=== PATIENT | female | born 1945 | race Hispanic/Latino ===

== ENCOUNTER 2017-06-20 04:09 | Inpatient (IN) | payer MEDICARE, MEDICAID ==
[2017-06-20 04:09] VITALS: BMI 27.7
--- NOTE | 2017-06-20 05:52 | ED PDOC ---
HPI: General Adult Time Seen by Provider: 06/20/17 04:21 Chief Complaint (Nursing): Abnormal Skin Integrity Chief Complaint (Provider): G Tube Infected History Per: Patient History/Exam Limitations: no limitations, physical impairment (non-verbal) Onset/Duration Of Symptoms: Unknown Current Symptoms Are (Timing): Still Present Additional Complaint(s): 71 yo female with a G Tube in placed and a history of CVA, seizure disorder, and diabetes, is sent from her shelter for evaluation of her infected G Tube, with unknown onset. Patient is non-verbal and unable to provide any patient history. PCP: Vikas Blair Past Medical History Reviewed: Historical Data, Nursing Documentation, Vital Signs Vital Signs: Last Vital Signs Temp 98.4 F 06/20/17 17:17 Pulse 81 06/20/17 19:06 Resp 16 06/20/17 17:36 BP 142/76 06/20/17 17:17 Pulse Ox 100 06/20/17 17:17 - Medical History PMH: Anemia, Anxiety, COPD, CVA, Diabetes, HTN, Osteoporosis, Pneumonia, Chronic Kidney Disease, Seizures - Family History Family History: States: Unknown Family Hx - Living Arrangements Living Arrangements: Snf/Assist Lvng - Social History Current smoker - smoking cessation education provided: No Ex-Smoker (has not smoked in the last 12 months): No Alcohol: None Drugs: Denies - Immunization History Hx Tetanus Toxoid Vaccination: No (no record) Hx Influenza Vaccination: No (no record) Hx Pneumococcal Vaccination: No (no record) - Home Medications Home Medications: Ambulatory Orders Medication Instructions Recorded Famotidine [Pepcid] 40 mg PEG DAILY 12/06/16 Magnesium Hydroxide [Milk Of 30 ml PEG DAILY PRN 12/06/16 Magnesia] Albuterol/Ipratropium [Duoneb 3 3 ml INH RQID neb 02/07/17 mg/0.5 mg (3 ml) UD] Aspirin [Aspirin Chewable] 81 mg PEG DAILY chew 02/07/17 Insulin Detemir [Levemir] 10 unit SC Q12H unit 02/07/17 Insulin Human Regular [Novolin R] 0 unit SC Q6 unit 02/07/17 Topiramate [Topamax] 100 mg PEG Q12 03/22/17 Acetaminophen [Tylenol 325mg tab] 650 mg PEG Q4 PRN 06/20/17 Acetaminophen [Tylenol 325mg tab] 650 mg PEG Q4 PRN 06/20/17 Mag Hydrox/Aluminum Hyd/Simeth 30 ml PEG Q4 PRN 06/20/17 [Maalox Advanced Suspension] Oxcarbazepine [Trileptal] 150 mg PEG DAILY 06/20/17 Oxcarbazepine [Trileptal] 450 mg PEG HS 06/20/17 - Allergies Allergies/Adverse Reactions: Allergies Allergy/AdvReac Type Severity Reaction Status Date / Time aztreonam [From Azactam] Allergy Verified 03/22/17 17:32 cefepime Allergy Verified 03/22/17 17:32 moxifloxacin Allergy Verified 03/22/17 17:32 Penicillins Allergy Verified 03/22/17 17:32 tamsulosin HCl [From Flomax] Allergy Verified 03/22/17 17:32 tigecycline [From Tygacil] Allergy Verified 03/22/17 17:32 vancomycin Allergy Verified 03/22/17 17:32 pnemonia vaccine Allergy Uncoded 03/22/17 17:32 Review of Systems ROS Statement: Except As Marked, All Systems Reviewed And Found Negative Review Of Systems: ROS cannot be obtained secondary to pt's inabilty to answer questions. (patient is non verbal and unable to answer any of the provider's) Physical Exam - Reviewed Nursing Documentation Reviewed: Yes Vital Signs Reviewed: Yes - Physical Exam Appears: Negative for: Well (chronically ill appearing) Head Exam: Positive for: ATRAUMATIC, NORMAL INSPECTION, NORMOCEPHALIC Skin: Positive for: Normal Color, Warm, DRY Eye Exam: Positive for: EOMI, Normal appearance, PERRL ENT: Positive for: Normal ENT Inspection Cardiovascular/Chest: Positive for: Regular Rate, Rhythm. Negative for: Murmur Respiratory: Positive for: Normal Breath Sounds. Negative for: Respiratory Distress Gastrointestinal/Abdominal: Positive for: Soft, Other (G Tube in place, ulceration of the upper tip of the G tube with erythema and drainage of yellow/ white fluid) Back: Positive for: Normal Inspection Extremity: Positive for: Normal ROM. Negative for: Pedal Edema, Deformity Lymphatic: Positive for: Deferred Neurologic/Psych: Positive for: Alert, Other (non-verbal). Negative for: Motor/ Sensory Deficits - Laboratory Results Result Diagrams: 06/20/17 06:19 06/20/17 06:25 - ECG O2 Sat by Pulse Oximetry: 96 (RA) Pulse Ox Interpretation: Normal Medical Decision Making Medical Decision Making: Time: --04:40 Impression: --Infected G Tube Plan: --Lactic acid, plasma --Labs --Chest One view X-ray --Blood Culture --urine Culture --urinalysis - Reassess --05:50 Patient with multiple medical problems presents with an infected G Tube. pending blood work and reevaluation --0700 Pending consult for surgery, will sign over to Dr. Nazario Scribe Attestation: Documented by Ced Claire acting as a scribe for Myke Serrato MD. Provider Attestation: All medical record entries made by the Scribe were at my direction and personally dictated by me. I have reviewed the chart and agree that the record accurately reflects my personal performance of the history, physical exam, medical decision making, and the department course for this patient. I have also personally directed, reviewed, and agree with the discharge instructions and disposition. Disposition - Clinical Impression Clinical Impression: Cellulitis, abdominal wall - Patient ED Disposition Is Patient to be Admitted: Transfer of Care - Disposition Disposition: Transfer of Care Disposition Time: 07:00 Condition: FAIR Patient Signed Over To: Jesus Nazario III (pending surgical consult, [facility] Shock Panel)
[2017-06-20 06:38] LABS: BASO # 0.1 K/uL (0.0-0.2); BASO % 0.8 % (0.0-2.0); EOS # 0.2 K/uL (0.0-0.7); EOS % 1.5 % (0.0-4.0); HEMOGLOBIN 10.1 g/dL (12.0-16.0); LYMPH # 1.7 K/uL (1.0-4.3); LYMPH % 15.3 % (20.0-40.0); MEAN CELL VOLUME 91.6 fl (81.0-99.0); MEAN CORPUSCULAR HEMOGLOBIN 30.4 pg (27.0-31.0); MEAN CORPUSCULAR HGB CONC 33.1 g/dL (33.0-37.0); MEAN PLATELET VOLUME 9.1 fl (7.2-11.7); MONO # 0.7 K/uL (0.0-0.8); MONO % 6.3 % (0.0-10.0); NEUT # 8.6 K/uL (1.8-7.0); NEUT % 76.1 % (50.0-75.0); NRBC % 0.1 % (0.0-0.0); RBC 3.32 Mil/uL (3.80-5.20); RED CELL DISTRIBUTION WIDTH 15.1 % (11.5-14.5); WHITE BLOOD COUNT 11.3 K/uL (4.8-10.8)
[2017-06-20 06:49] LABS: ALBUMIN 3.3 g/dL (3.5-5.0); ALT/SGPT 36 U/L (9-52); AST/SGOT 18 U/L (14-36); BLOOD UREA NITROGEN 31 mg/dl (7-17); CALCIUM 8.9 mg/dL (8.4-10.2); GFR AFRICAN-AMERICAN > 60; GFR NON-AFRICAN AMERICAN > 60
--- NOTE | 2017-06-20 07:10 | ED PDOC ---
- Laboratory Results Result Diagrams: 07/01/17 12:50 06/28/17 08:09 - ECG O2 Sat by Pulse Oximetry: 96 (RA) Medical Decision Making Medical Decision Making: Patient signed out to me by Dr. Serrato @ 07:00, pending surgical consult, [facility] Shock Panel. Time: 08:39 - Omnipaque 240 (50 ML) pt to be admitted for abd wall cellulitis, ID and surgical consults to be obtained CT pending at time admission. Antibiotics were initiated. Scribe Attestation: Documented by Johann Trimble, acting as a scribe for Jesus Nazario III, DO Provider Scribe Attestation: All medical record entries made by the Scribe were at my direction and personally dictated by me. I have reviewed the chart and agree that the record accurately reflects my personal performance of the history, physical exam, medical decision making, and the department course for this patient. I have also personally directed, reviewed, and agree with the discharge instructions and disposition. Disposition - Clinical Impression Clinical Impression: Cellulitis, abdominal wall - POA Present On Arrival: Poor Glycemic Control, Pressure Ulcer - Disposition Disposition: Admitted as In-Patient Disposition Time: 08:30 Condition: FAIR
[2017-06-20 07:23] LABS: RENAL EPITHELIAL 2 /hpf (0-3); SQUAMOUS EPITHIAL 1 /hpf (0-5); URINE BACTERIA RARE (<OCC); URINE BILIRUBIN NEGATIVE (NEGATIVE); URINE BLOOD NEGATIVE (NEGATIVE); URINE CLARITY CLOUDY (Clear); URINE COLOR YELLOW (YELLOW); URINE GLUCOSE (UA) >=500 mg/dL (Normal); URINE LEUKOCYTE ESTERASE LARGE Leu/uL (Negative); URINE PROTEIN 30 mg/dL (NEGATIVE); URINE UROBILINOGEN 0.2-1.0 mg/dL (0.2-1.0); WBC CLUMPS MOD /hpf
--- NOTE | 2017-06-20 07:56 | CP.PCM.CON ---
History of Present Illness - History of Present Illness History of Present Illness: General Surgery Consult for Dr. Suero Reason for consult: suspected G tube leak 71 F with PMH that includes history of CVA, seizure disorder, and diabetes was sent from [facility] to [facility] for evaluation G Tube. Patient was seen and evaluated in the ED. Patient is non-verbal and unable to provide any patient history. correction records states that G tube leak and skin breakdown has been going on for an unknown time period. ROS unobtainable due to clinical condition. PMD: Dr. Vikas Blair PMH: Anemia, Anxiety, COPD, CVA, Diabetes, HTN, Osteoporosis, Pneumonia, Chronic Kidney Disease, Seizures Meds: As per EMR Allergy: aztreonam, cefepime, moxifloxacin, PCN, Tamulosin, Tigecycline PSH: g-tube placement, rest of surgical history unknown Family History: Unknown Family Social: unknown tobacco/ETOH/illicit drug use, Senior Care/Assist Living Review of Systems - Review of Systems Systems not reviewed;Unavailable: Acuity of Condition, Altered Mental Status Past Patient History - Past Medical History & Family History Past Medical History?: Yes - Past Social History Alcohol: None Drugs: Denies - CARDIAC Hx Hypertension: Yes - PULMONARY Hx Chronic Obstructive Pulmonary Disease (COPD): Yes Hx Pneumonia: Yes - NEUROLOGICAL Hx Seizures: Yes - HEENT Hx HEENT Problems: Yes Hx Cataracts: Yes Other/Comment: APHASIA - RENAL Hx Chronic Kidney Disease: Yes - ENDOCRINE/METABOLIC Hx Diabetes Mellitus Type 2: Yes - HEMATOLOGICAL/ONCOLOGICAL Hx Anemia: Yes - INTEGUMENTARY Hx Dermatological Problems: No - MUSCULOSKELETAL/RHEUMATOLOGICAL Hx Osteoporosis: Yes - GASTROINTESTINAL Hx Gastrointestinal Disorders: Yes Hx Gastroesophageal Reflux: Yes Other/Comment: PEG Tube - GENITOURINARY/GYNECOLOGICAL Hx Genitourinary Disorders: Yes Hx Incontinence: Yes - PSYCHIATRIC Hx Anxiety: Yes - SURGICAL HISTORY Hx Surgeries: Yes Other/Comment: GASTROSTOMY - ANESTHESIA Hx Anesthesia: Yes Hx Anesthesia Reactions: No Hx Malignant Hyperthermia: No Meds Allergies/Adverse Reactions: Allergies Allergy/AdvReac Type Severity Reaction Status Date / Time aztreonam [From Azactam] Allergy Verified 03/22/17 17:32 cefepime Allergy Verified 03/22/17 17:32 moxifloxacin Allergy Verified 03/22/17 17:32 Penicillins Allergy Verified 03/22/17 17:32 tamsulosin HCl [From Flomax] Allergy Verified 03/22/17 17:32 tigecycline [From Tygacil] Allergy Verified 03/22/17 17:32 vancomycin Allergy Verified 03/22/17 17:32 pnemonia vaccine Allergy Uncoded 03/22/17 17:32 Physical Exam - Constitutional Appears: No Acute Distress, Older Than Stated Age - Head Exam Head Exam: ATRAUMATIC, NORMOCEPHALIC - Eye Exam Eye Exam: EOMI, Normal appearance Pupil Exam: PERRL - ENT Exam ENT Exam: Mucous Membranes Dry - Respiratory Exam Respiratory Exam: NORMAL BREATHING PATTERN - Cardiovascular Exam Cardiovascular Exam: REGULAR RHYTHM - GI/Abdominal Exam GI & Abdominal Exam: Guarding (voluntary), Normal Bowel Sounds, Soft, Tenderness. absent: Distended, Firm, Rebound, Rigid Additional comments: g-tube in place with leak of gastric contents, surrounding skin excoriation and erythema, skin ulceration present with clot present patient is tender to palpation surrounding g tube - Neurological Exam Neurological exam: Altered - Psychiatric Exam Psychiatric exam: Flat Affect - Skin Skin Exam: Dry, Warm Results - Vital Signs Recent Vital Signs: Last Vital Signs Temp 97.9 F 06/20/17 07:24 Pulse 75 06/20/17 07:24 Resp 24 06/20/17 07:24 BP 122/74 06/20/17 07:24 Pulse Ox 96 06/20/17 07:25 - Labs Result Diagrams: 06/20/17 06:19 06/20/17 06:25 Labs: Laboratory Results - last 24 hr 06/20/17 06/20/17 06/20/17 06:19 06:19 06:25 WBC 11.3 H RBC 3.32 L Hgb 10.1 L Hct 30.4 L MCV 91.6 MCH 30.4 MCHC 33.1 RDW 15.1 H Plt Count 108 L MPV 9.1 Neut % (Auto) 76.1 H Lymph % (Auto) 15.3 L [place] % (Auto) 6.3 Eos % (Auto) 1.5 Baso % (Auto) 0.8 Neut # (Auto) 8.6 H Lymph # (Auto) 1.7 [place] # (Auto) 0.7 Eos # (Auto) 0.2 Baso # (Auto) 0.1 Sodium 142 Potassium 4.4 Chloride 105 Carbon Dioxide 25 Anion Gap 16 BUN 31 H Creatinine 0.5 L Est GFR ( Amer) > 60 Est GFR (Non-Af Amer) > 60 Random Glucose 333 H Lactic Acid 1.1 Calcium 8.9 Total Bilirubin 0.3 AST 18 ALT 36 Alkaline Phosphatase 73 Total Protein 6.8 Albumin 3.3 L Globulin 3.5 Albumin/Globulin Ratio 1.0 Urine Color Urine Clarity Urine pH Ur Specific [place] Urine Protein Urine Glucose (UA) Urine Ketones Urine Blood Urine Nitrate Urine Bilirubin Urine Urobilinogen Ur Leukocyte Esterase Urine RBC (Auto) Urine WBC Clumps (Auto) Urine Microscopic WBC Ur Squamous Epith Cells Ur Renal Epithelial Cell Urine Bacteria 06/20/17 07:07 WBC RBC Hgb Hct MCV MCH MCHC RDW Plt Count MPV Neut % (Auto) Lymph % (Auto) [place] % (Auto) Eos % (Auto) Baso % (Auto) Neut # (Auto) Lymph # (Auto) [place] # (Auto) Eos # (Auto) Baso # (Auto) Sodium Potassium Chloride Carbon Dioxide Anion Gap BUN Creatinine Est GFR ( Amer) Est GFR (Non-Af Amer) Random Glucose Lactic Acid Calcium Total Bilirubin AST ALT Alkaline Phosphatase Total Protein Albumin Globulin Albumin/Globulin Ratio Urine Color Yellow Urine Clarity Cloudy Urine pH 8.0 Ur Specific [place] 1.018 Urine Protein 30 Urine Glucose (UA) >=500 Urine Ketones Negative Urine Blood Negative Urine Nitrate Negative Urine Bilirubin Negative Urine Urobilinogen 0.2-1.0 Ur Leukocyte Esterase Large Urine RBC (Auto) 22 H Urine WBC Clumps (Auto) Mod H Urine Microscopic WBC 819 H Ur Squamous Epith Cells 1 Ur Renal Epithelial Cell 2 Urine Bacteria Rare Assessment & Plan - Assessment and Plan (Free Text) Assessment: 71 F with suspected g-tube leak and skin breakdown -G tube study to assess for leak -Zinc oxide for skin breakdown -Medical management as per primary -Discusssed with Dr. Pio Romero PGY1
[2017-06-20] MEDS ORDERED: Iohexol 240 100 ML IJ ONE (07:57)
[2017-06-20] MEDS ORDERED: Iohexol 240 (50 ml) PO ONE (07:57)
[2017-06-20 08:55] LABS: VENOUS BLOOD GAS BASE EXCESS 4.2 mmol/L (0.0-2.0); VENOUS BLOOD GAS PCO2 50 mmHg (40-60); VENOUS BLOOD GAS PO2 43 mm/Hg (30-55); VENOUS BLOOD PH 7.39 (7.32-7.43)
[2017-06-20] MEDS ORDERED: Iohexol 240 (50 ml) ONE (09:14)
[2017-06-20] MEDS ORDERED: SULFAMETHOXAZOLE IVPB STA ×2 (11:00→11:36)
[2017-06-20] MEDS ORDERED: TRIMETHOPRIM IVPB STA ×2 (11:00→11:36)
[2017-06-20] MEDS ORDERED: WATER IVPB STA ×2 (11:00→11:36)
[2017-06-20] MEDS ORDERED: DEXTROSE 5% IVPB STA ×2 (11:00→11:36)
[2017-06-20] MEDS ORDERED: Iohexol 300 100 ML IJ ONE (13:01)
--- NOTE | 2017-06-20 13:33 | RAD ---
HISTORY: g tube leak COMPARISON: No prior. FINDINGS: BOWEL: Water-soluble contrast administered via percutaneous gastrostomy tube is seen within the stomach and duodenum and more distal jejunum. No intraperitoneal contrast is appreciated. Normal bowel gas pattern. No masses or abnormal intra-abdominal calcifications. BONES: Normal. OTHER FINDINGS: None. IMPRESSION: Percutaneous gastrostomy tube is appropriately situated within bowel lumen.
--- NOTE | 2017-06-20 13:35 | RAD ---
PROCEDURE: CHEST RADIOGRAPH, 1 VIEW HISTORY: infected G tube site COMPARISON: 07/08/2008 FINDINGS: LUNGS: Subsegmental atelectasis at right base. No tanisha infiltrate. PLEURA: Markedly elevated right hemidiaphragm. CARDIOVASCULAR: Normal. OSSEOUS STRUCTURES: No significant abnormalities. VISUALIZED UPPER ABDOMEN: Normal. OTHER FINDINGS: None. IMPRESSION: Elevated right hemidiaphragm and right basilar subsegmental atelectasis.
[2017-06-20] MEDS ORDERED: Magnesium Hydroxide Susp 30 ml UD PEG PRN (13:46)
[2017-06-20] MEDS ORDERED: Alum-Mag Hydrox-Simethicone Susp (30 mL) PEG PRN (13:46)
--- NOTE | 2017-06-20 14:26 | CP.PCM.HP ---
History of Present Illness - History of Present Illness History of Present Illness: This is a 71 year old female with past medical history of CVA, seizure disorder , and Type 2 DM, [employer] HTN, CKD, anemia, who presents from the custodial ( [facility]) to [facility] for evaluation of PEG tube site wound infection. Apparently the PEG wound has been there for an uncertain amount of time. The patient is nonverbal due to CVA and does not communicate. In the ED, Dr. Suero was called on consultation for surgery. X ray shows that G tube is in the correct position. There is noticable pus and erythema consistent with cellulitis around the wound site. She was started on Bactrim IV. The patient is for CT abdomen at this time to rule out concomitant abscess. She is to be admitted for antibiotics IV with nosocomial infection and further monitoring. Present on Admission - Present on Admission Any Indicators Present on Admission: No Review of Systems - Review of Systems Review of Systems: A 12 point review of systems was conducted and found to be negative other than what was mentioned in the HPI. Past Patient History - Infectious Disease Hx of Infectious Diseases: None - Past Medical History & Family History Past Medical History?: Yes - Past Social History Alcohol: None Drugs: Denies - CARDIAC Hx Hypertension: Yes - PULMONARY Hx Chronic Obstructive Pulmonary Disease (COPD): Yes Hx Pneumonia: Yes - NEUROLOGICAL Hx Seizures: Yes - HEENT Hx HEENT Problems: Yes Hx Cataracts: Yes Other/Comment: APHASIA - RENAL Hx Chronic Kidney Disease: Yes - ENDOCRINE/METABOLIC Hx Diabetes Mellitus Type 2: Yes - HEMATOLOGICAL/ONCOLOGICAL Hx Anemia: Yes - INTEGUMENTARY Hx Dermatological Problems: No - MUSCULOSKELETAL/RHEUMATOLOGICAL Hx Osteoporosis: Yes - GASTROINTESTINAL Hx Gastrointestinal Disorders: Yes Hx Gastroesophageal Reflux: Yes Other/Comment: PEG Tube - GENITOURINARY/GYNECOLOGICAL Hx Genitourinary Disorders: Yes Hx Incontinence: Yes - PSYCHIATRIC Hx Anxiety: Yes - SURGICAL HISTORY Hx Surgeries: Yes Other/Comment: GASTROSTOMY - ANESTHESIA Hx Anesthesia: Yes Hx Anesthesia Reactions: No Hx Malignant Hyperthermia: No Meds Allergies/Adverse Reactions: Allergies Allergy/AdvReac Type Severity Reaction Status Date / Time aztreonam [From Azactam] Allergy Verified 03/22/17 17:32 cefepime Allergy Verified 03/22/17 17:32 moxifloxacin Allergy Verified 03/22/17 17:32 Penicillins Allergy Verified 03/22/17 17:32 tamsulosin HCl [From Flomax] Allergy Verified 03/22/17 17:32 tigecycline [From Tygacil] Allergy Verified 03/22/17 17:32 vancomycin Allergy Verified 03/22/17 17:32 pnemonia vaccine Allergy Uncoded 03/22/17 17:32 Physical Exam - Additional Findings Additional findings: Physical exam: Constitutional- awake, nonverbal, noncommunicative, unkempt Head- NCAT, PERRL Eye- PERRL, EOMI ENT- normal exam, MMM. Neck- normal inspection, supple, no JVD Respiratory- CTAB, no wheezes rales rhonchi Cardiovascular- RRR, +S1, +S2 no MRG GI/Abdominal- + PEG tube in place, skin breakdown with erythema and draining pus surrounding the tube. normal bowel sounds, soft, no mass, no hsm Skin- warm, dry Extremities Exam- normal capillary refill, normal inspection Neurological Exam- alert, awake, non communicative, s/p CVA Psych- unable to be assessed Results - Vital Signs Recent Vital Signs: Last Vital Signs Temp 97.9 F 06/20/17 07:24 Pulse 70 06/20/17 10:17 Resp 22 06/20/17 10:17 BP 144/74 06/20/17 10:17 Pulse Ox 100 06/20/17 10:17 - Labs Result Diagrams: 06/20/17 06:19 06/20/17 06:25 Labs: Laboratory Results - last 24 hr 06/20/17 06/20/17 06/20/17 06:19 06:19 06:25 WBC 11.3 H RBC 3.32 L Hgb 10.1 L Hct 30.4 L MCV 91.6 MCH 30.4 MCHC 33.1 RDW 15.1 H Plt Count 108 L MPV 9.1 Neut % (Auto) 76.1 H Lymph % (Auto) 15.3 L [place] % (Auto) 6.3 Eos % (Auto) 1.5 Baso % (Auto) 0.8 Neut # (Auto) 8.6 H Lymph # (Auto) 1.7 [place] # (Auto) 0.7 Eos # (Auto) 0.2 Baso # (Auto) 0.1 pO2 VBG pH VBG pCO2 VBG HCO3 VBG Total CO2 VBG O2 Sat (Calc) VBG Base Excess VBG Potassium Glucose Lactate FiO2 Sodium 142 Potassium 4.4 Chloride 105 Carbon Dioxide 25 Anion Gap 16 BUN 31 H Creatinine 0.5 L Est GFR ( Amer) > 60 Est GFR (Non-Af Amer) > 60 Random Glucose 333 H Lactic Acid 1.1 Calcium 8.9 Total Bilirubin 0.3 AST 18 ALT 36 Alkaline Phosphatase 73 Total Protein 6.8 Albumin 3.3 L Globulin 3.5 Albumin/Globulin Ratio 1.0 Venous Blood Potassium Urine Color Urine Clarity Urine pH Ur Specific [place] Urine Protein Urine Glucose (UA) Urine Ketones Urine Blood Urine Nitrate Urine Bilirubin Urine Urobilinogen Ur Leukocyte Esterase Urine RBC (Auto) Urine WBC Clumps (Auto) Urine Microscopic WBC Ur Squamous Epith Cells Ur Renal Epithelial Cell Urine Bacteria 06/20/17 06/20/17 07:07 08:50 WBC RBC Hgb Hct MCV MCH MCHC RDW Plt Count MPV Neut % (Auto) Lymph % (Auto) [place] % (Auto) Eos % (Auto) Baso % (Auto) Neut # (Auto) Lymph # (Auto) [place] # (Auto) Eos # (Auto) Baso # (Auto) pO2 43 VBG pH 7.39 VBG pCO2 50 VBG HCO3 27.7 VBG Total CO2 31.8 H VBG O2 Sat (Calc) 91.3 H VBG Base Excess 4.2 H VBG Potassium 4.7 Glucose 383 H Lactate 1.2 FiO2 21.0 Sodium 138.0 Potassium Chloride 107.0 Carbon Dioxide Anion Gap BUN Creatinine Est GFR ( Amer) Est GFR (Non-Af Amer) Random Glucose Lactic Acid Calcium Total Bilirubin AST ALT Alkaline Phosphatase Total Protein Albumin Globulin Albumin/Globulin Ratio Venous Blood Potassium 4.7 Urine Color Yellow Urine Clarity Cloudy Urine pH 8.0 Ur Specific [place] 1.018 Urine Protein 30 Urine Glucose (UA) >=500 Urine Ketones Negative Urine Blood Negative Urine Nitrate Negative Urine Bilirubin Negative Urine Urobilinogen 0.2-1.0 Ur Leukocyte Esterase Large Urine RBC (Auto) 22 H Urine WBC Clumps (Auto) Mod H Urine Microscopic WBC 819 H Ur Squamous Epith Cells 1 Ur Renal Epithelial Cell 2 Urine Bacteria Rare Assessment & Plan - Assessment and Plan (Free Text) Plan: This is a 71 year old female with past medical history of CVA, seizure disorder , and Type 2 DM, [employer] HTN, CKD, anemia, who presents from the custodial ( [facility]) to [facility] for evaluation of PEG tube site wound infection. PEG wound nosocomial infection, pt from custodial - Admit to med/surg - Consultation with Dr. Salomon ID as patient has multiple drug allergies - Consultation with Dr. Suero - G tube study - Zinc oxide for skin breakdown - CT scan to r/o abscess - Bactrim 600 mg IVPB q 12 hours - patinet hemodynamically stable - BCX pending UTI - Bactrim - ID consultation - Hx multiple UTI's in the past - Await Urine CX seizure hx - Continue home seizure medications Type 2 DM Levemir 10 mg sc q 12 hours, may need to increase dosage as patient is uncontrolled Humalog sliding scale
--- NOTE | 2017-06-20 14:45 | CP.PCM.CON ---
History of Present Illness - History of Present Illness History of Present Illness: Infectious Disease consultation Note- asked to see this patient at the request of the hospitalist for infected peg tube site and help with antibiotic management. HPI- history obtained entirely from the medical chart as pt. has CVA/dementia and not answering questions. Pt. is a 71 year old female [place] resident with pmh OF CVA, seizure disorder, DM II , HTN, CKD anemia who was admitted from [place] after she was found to have peg tube site wound infection. Unclear how long pt. has had the peg tube placed. I'm asked to evaluate and help with antibiotic management as pt. is listed to have multiple antibiotic allergies. Unclear what exactly is the allergic reactions as pt. does not verbalize. Review of Systems - Review of Systems Review of Systems: ROS- unable to obtain as pt. does not verbalize Past Patient History - Infectious Disease Hx of Infectious Diseases: None - Past Medical History & Family History Past Medical History?: Yes - Past Social History Alcohol: None Drugs: Denies Home Situation {Lives}: [facility]pc - CARDIAC Hx Hypertension: Yes - PULMONARY Hx Chronic Obstructive Pulmonary Disease (COPD): Yes Hx Pneumonia: Yes - NEUROLOGICAL Hx Seizures: Yes - HEENT Hx HEENT Problems: Yes - RENAL Hx Chronic Kidney Disease: Yes - ENDOCRINE/METABOLIC Hx Diabetes Mellitus Type 2: Yes - HEMATOLOGICAL/ONCOLOGICAL Hx Anemia: Yes - INTEGUMENTARY Hx Dermatological Problems: No - MUSCULOSKELETAL/RHEUMATOLOGICAL Hx Osteoporosis: Yes - GASTROINTESTINAL Hx Gastrointestinal Disorders: Yes Hx Gastroesophageal Reflux: Yes Other/Comment: PEG Tube - GENITOURINARY/GYNECOLOGICAL Hx Genitourinary Disorders: Yes - PSYCHIATRIC Hx Anxiety: Yes - SURGICAL HISTORY Hx Surgeries: Yes Other/Comment: GASTROSTOMY - ANESTHESIA Hx Anesthesia: Yes Hx Anesthesia Reactions: No Hx Malignant Hyperthermia: No Meds Allergies/Adverse Reactions: Allergies Allergy/AdvReac Type Severity Reaction Status Date / Time aztreonam [From Azactam] Allergy Verified 03/22/17 17:32 cefepime Allergy Verified 03/22/17 17:32 moxifloxacin Allergy Verified 03/22/17 17:32 Penicillins Allergy Verified 03/22/17 17:32 tamsulosin HCl [From Flomax] Allergy Verified 03/22/17 17:32 tigecycline [From Tygacil] Allergy Verified 03/22/17 17:32 vancomycin Allergy Verified 01/12/18 17:32 pnemonia vaccine Allergy Uncoded 03/22/17 17:32 - Medications Medications: Current Medications Acetaminophen (Tylenol 325mg Tab) 650 mg PEG Q4 PRN PRN Reason: Pain, Mild (1-3) Acetaminophen (Tylenol 325mg Tab) 650 mg PEG Q4 PRN PRN Reason: Temp >100 Al Hydrox/Mg Hydrox/Simethicone (Maalox Plus 30 Ml) 30 ml PEG Q4 PRN PRN Reason: heartburn/indigestion Albuterol/Ipratropium (Duoneb 3 Mg/0.5 Mg (3 Ml) Ud) 3 ml INH RQID [facility] Aspirin (Aspirin Chewable) 81 mg PEG DAILY [facility] Famotidine (Pepcid) 40 mg PEG DAILY [facility] Heparin Sodium (Porcine) (Heparin) 5,000 units SC Q12 [facility] PRN Reason: Protocol Trimethoprim/Sulfamethoxazole (600 mg/ Dextrose) 500 mls @ 333.333 mls/hr IVPB Q12 [facility] PRN Reason: Protocol Insulin Detemir (Levemir) 10 units SC Q12H [facility] Insulin Human Lispro (Humalog) 0 units SC ACCU-CHECK [facility] PRN Reason: Protocol Magnesium Hydroxide (Milk Of Magnesia) 30 ml PEG DAILY PRN PRN Reason: Constipation Oxcarbazepine (Trileptal) 150 mg PEG DAILY [facility] Oxcarbazepine (Trileptal) 450 mg PEG HS [facility] Petrolatum (Desitin Maximum Strength Topical 40% Oint) 1 applic TOP Q8 PRN PRN Reason: skin excoriation Topiramate (Topamax) 100 mg PO Q12 [facility] Physical Exam - Constitutional Appears: No Acute Distress, Agitated, Chronically Ill - Head Exam Head Exam: ATRAUMATIC - Eye Exam Eye Exam: EOMI - ENT Exam Additional comments: poor dentition dry oral mucosa - Neck Exam Neck exam: Positive for: Full Rom - Respiratory Exam Respiratory Exam: NORMAL BREATHING PATTERN Additional comments: thick cough scattered coarse breath sounds No wheezing - Cardiovascular Exam Cardiovascular Exam: RRR, +S1, +S2 - GI/Abdominal Exam Additional comments: distended not hard but not soft either + BS peg tube site with both pus and bloody discharge with surrounding erythema pt. keeps pulling at her PEG tube site no guarding no rebound - Extremities Exam Additional comments: no edema b/l LE - Neurological Exam Additional comments: awake but agitated and dementia Results - Vital Signs Recent Vital Signs: Last Vital Signs Temp 97.9 F 06/20/17 07:24 Pulse 70 06/20/17 14:39 Resp 22 06/20/17 14:39 BP 144/74 06/20/17 14:39 Pulse Ox 100 06/20/17 10:17 - Labs Result Diagrams: 06/20/17 06:19 06/20/17 06:25 Labs: Laboratory Results - last 24 hr 06/20/17 06/20/17 06/20/17 06:19 06:19 06:25 WBC 11.3 H RBC 3.32 L Hgb 10.1 L Hct 30.4 L MCV 91.6 MCH 30.4 MCHC 33.1 RDW 15.1 H Plt Count 108 L MPV 9.1 Neut % (Auto) 76.1 H Lymph % (Auto) 15.3 L [place] % (Auto) 6.3 Eos % (Auto) 1.5 Baso % (Auto) 0.8 Neut # (Auto) 8.6 H Lymph # (Auto) 1.7 [place] # (Auto) 0.7 Eos # (Auto) 0.2 Baso # (Auto) 0.1 pO2 VBG pH VBG pCO2 VBG HCO3 VBG Total CO2 VBG O2 Sat (Calc) VBG Base Excess VBG Potassium Glucose Lactate FiO2 Sodium 142 Potassium 4.4 Chloride 105 Carbon Dioxide 25 Anion Gap 16 BUN 31 H Creatinine 0.5 L Est GFR ( Amer) > 60 Est GFR (Non-Af Amer) > 60 Random Glucose 333 H Lactic Acid 1.1 Calcium 8.9 Total Bilirubin 0.3 AST 18 ALT 36 Alkaline Phosphatase 73 Total Protein 6.8 Albumin 3.3 L Globulin 3.5 Albumin/Globulin Ratio 1.0 Venous Blood Potassium Urine Color Urine Clarity Urine pH Ur Specific [place] Urine Protein Urine Glucose (UA) Urine Ketones Urine Blood Urine Nitrate Urine Bilirubin Urine Urobilinogen Ur Leukocyte Esterase Urine RBC (Auto) Urine WBC Clumps (Auto) Urine Microscopic WBC Ur Squamous Epith Cells Ur Renal Epithelial Cell Urine Bacteria 06/20/17 06/20/17 07:07 08:50 WBC RBC Hgb Hct MCV MCH MCHC RDW Plt Count MPV Neut % (Auto) Lymph % (Auto) [place] % (Auto) Eos % (Auto) Baso % (Auto) Neut # (Auto) Lymph # (Auto) [place] # (Auto) Eos # (Auto) Baso # (Auto) pO2 43 VBG pH 7.39 VBG pCO2 50 VBG HCO3 27.7 VBG Total CO2 31.8 H VBG O2 Sat (Calc) 91.3 H VBG Base Excess 4.2 H VBG Potassium 4.7 Glucose 383 H Lactate 1.2 FiO2 21.0 Sodium 138.0 Potassium Chloride 107.0 Carbon Dioxide Anion Gap BUN Creatinine Est GFR ( Amer) Est GFR (Non-Af Amer) Random Glucose Lactic Acid Calcium Total Bilirubin AST ALT Alkaline Phosphatase Total Protein Albumin Globulin Albumin/Globulin Ratio Venous Blood Potassium 4.7 Urine Color Yellow Urine Clarity Cloudy Urine pH 8.0 Ur Specific [place] 1.018 Urine Protein 30 Urine Glucose (UA) >=500 Urine Ketones Negative Urine Blood Negative Urine Nitrate Negative Urine Bilirubin Negative Urine Urobilinogen 0.2-1.0 Ur Leukocyte Esterase Large Urine RBC (Auto) 22 H Urine WBC Clumps (Auto) Mod H Urine Microscopic WBC 819 H Ur Squamous Epith Cells 1 Ur Renal Epithelial Cell 2 Urine Bacteria Rare Laboratory Results - last 72 hr 06/20/17 06/20/17 06/20/17 06:19 06:19 06:25 WBC 11.3 H RBC 3.32 L Hgb 10.1 L Hct 30.4 L MCV 91.6 MCH 30.4 MCHC 33.1 RDW 15.1 H Plt Count 108 L MPV 9.1 Neut % (Auto) 76.1 H Lymph % (Auto) 15.3 L [place] % (Auto) 6.3 Eos % (Auto) 1.5 Baso % (Auto) 0.8 Neut # (Auto) 8.6 H Lymph # (Auto) 1.7 [place] # (Auto) 0.7 Eos # (Auto) 0.2 Baso # (Auto) 0.1 pO2 VBG pH VBG pCO2 VBG HCO3 VBG Total CO2 VBG O2 Sat (Calc) VBG Base Excess VBG Potassium Glucose Lactate FiO2 Sodium 142 Potassium 4.4 Chloride 105 Carbon Dioxide 25 Anion Gap 16 BUN 31 H Creatinine 0.5 L Est GFR ( Amer) > 60 Est GFR (Non-Af Amer) > 60 Random Glucose 333 H Lactic Acid 1.1 Calcium 8.9 Total Bilirubin 0.3 AST 18 ALT 36 Alkaline Phosphatase 73 Total Protein 6.8 Albumin 3.3 L Globulin 3.5 Albumin/Globulin Ratio 1.0 Venous Blood Potassium Urine Color Urine Clarity Urine pH Ur Specific [place] Urine Protein Urine Glucose (UA) Urine Ketones Urine Blood Urine Nitrate Urine Bilirubin Urine Urobilinogen Ur Leukocyte Esterase Urine RBC (Auto) Urine WBC Clumps (Auto) Urine Microscopic WBC Ur Squamous Epith Cells Ur Renal Epithelial Cell Urine Bacteria 06/20/17 06/20/17 07:07 08:50 WBC RBC Hgb Hct MCV MCH MCHC RDW Plt Count MPV Neut % (Auto) Lymph % (Auto) [place] % (Auto) Eos % (Auto) Baso % (Auto) Neut # (Auto) Lymph # (Auto) [place] # (Auto) Eos # (Auto) Baso # (Auto) pO2 43 VBG pH 7.39 VBG pCO2 50 VBG HCO3 27.7 VBG Total CO2 31.8 H VBG O2 Sat (Calc) 91.3 H VBG Base Excess 4.2 H VBG Potassium 4.7 Glucose 383 H Lactate 1.2 FiO2 21.0 Sodium 138.0 Potassium Chloride 107.0 Carbon Dioxide Anion Gap BUN Creatinine Est GFR ( Amer) Est GFR (Non-Af Amer) Random Glucose Lactic Acid Calcium Total Bilirubin AST ALT Alkaline Phosphatase Total Protein Albumin Globulin Albumin/Globulin Ratio Venous Blood Potassium 4.7 Urine Color Yellow Urine Clarity Cloudy Urine pH 8.0 Ur Specific [place] 1.018 Urine Protein 30 Urine Glucose (UA) >=500 Urine Ketones Negative Urine Blood Negative Urine Nitrate Negative Urine Bilirubin Negative Urine Urobilinogen 0.2-1.0 Ur Leukocyte Esterase Large Urine RBC (Auto) 22 H Urine WBC Clumps (Auto) Mod H Urine Microscopic WBC 819 H Ur Squamous Epith Cells 1 Ur Renal Epithelial Cell 2 Urine Bacteria Rare aztreonam [From Azactam] Allergy (Verified 03/22/17 17:32) cefepime Allergy (Verified 03/22/17 17:32) moxifloxacin Allergy (Verified 03/22/17 17:32) Penicillins Allergy (Verified 03/22/17 17:32) tamsulosin HCl [From Flomax] Allergy (Verified 03/22/17 17:32) tigecycline [From Tygacil] Allergy (Verified 03/22/17 17:32) vancomycin Allergy (Verified 03/22/17 17:32) Microbiology 02/04/17 16:52 Peg Site Gram Stain - Final 02/04/17 16:52 Peg Site Wound Culture - Final Enterococcus Faecalis Amelia Tropicalis 01/30/17 10:20 Blood Blood Culture - Final 01/30/17 10:20 Blood Gram Stain - Final NO GROWTH AFTER 5 DAYS TEST NOT PERFORMED 01/30/17 09:30 Urine Urine Culture - Final Proteus Mirabilis 03/23/17 15:16 Urine,Lopez Urine Culture - Final No Growth (<1,000 CFU/ML) 03/22/17 18:38 Urine,Lopez Urine Culture - Final Proteus Mirabilis 03/22/17 17:30 Blood Blood Culture - Final 03/22/17 17:30 Blood Gram Stain - Final NO GROWTH AFTER 5 DAYS TEST NOT PERFORMED 03/22/17 17:00 Blood Blood Culture - Final 03/22/17 17:00 Blood Gram Stain - Final NO GROWTH AFTER 5 DAYS TEST NOT PERFORMED pnemonia vaccine Allergy (Uncoded 03/22/17 17:32) Accession No. : [id number] Patient Name / ID : ALEXANDRA BRISENO / [id number] Exam Date : 06/20/2017 13:38:22 ( Approved ) Study Comment : Sex / Age : F / 71Y Creator : Moe Morris MD Dictator : Moe Morris MD Alarm Signaler : Plumber Assistant : Moe Morris MD Approver2 : Report Date : 06/20/2017 14:46:05 My Comment : PROCEDURE: CT Abdomen and Pelvis with contrast HISTORY: r/o abdominal wall abscess at Gtube COMPARISON: None. TECHNIQUE: Contrast dose: 95 cc Omnipaque 300 Radiation dose: Total exam DLP = 1144.19 mGy-cm. This CT exam was performed using one or more of the following dose reduction techniques: Automated exposure control, adjustment of the mA and/or kV according to patient size, and/or use of iterative reconstruction technique. FINDINGS: LOWER THORAX: Linear scar/ atelectasis in right lower lobe. Elevated right hemidiaphragm. LIVER: Normal size, contour and attenuation. No mass. No biliary dilatation. GALLBLADDER AND BILE DUCTS: Status post cholecystectomy. Unremarkable common bile duct. PANCREAS: Normal size. Three separate low-density pancreatic masses are identified. Ovoid low-density mass at the tail/ body junction, 1.6 cm diameter. Ovoid mass , mildly exophytic, in the pancreatic body, 1.4 cm diameter. Low-density mass inferior pancreatic head, 1.1 x 1.6 by 1.8 cm. Uncertain significance. Consider further evaluation with multiphasic contrast-enhanced CT utilizing pancreatic protocol. No pancreatic ductal dilatation. SPLEEN: Minimal splenomegaly. The spleen measures 13.2 cm in greatest dimension. No focal mass. ADRENALS: Unremarkable. No mass. KIDNEYS AND URETERS: There is coarse calcification seen in the right renal pelvis, approximately 3.0 cm in greatest dimension. No evidence of hydronephrosis. Several additional calcifications are seen in the right renal pelvis and lower pole right renal collecting system. There is cortical scarring in the upper pole right kidney. There is a 2 mm nonobstructing left lower pole renal calculus. . VASCULATURE: Unremarkable. No aortic aneurysm. BOWEL: No bowel obstruction. Percutaneous gastrostomy noted. APPENDIX: Normal appendix. PERITONEUM: Just cephalad to the midline percutaneous gastrostomy, at the level of the emboli kiss, there is subcutaneous fat stranding and subcutaneous gas, suspicious for cellulitis. There is also skin thickening overlying the anterior aspect of this affected region of the anterior abdominal wall. No evidence of tanisha abscess. No ascites. No pneumoperitoneum. LYMPH NODES: Unremarkable. No enlarged lymph nodes. BLADDER: Nondistended REPRODUCTIVE: Coarse exophytic uterine calcifications consistent with old calcified fibroids. BONES: No acute fracture. OTHER FINDINGS: None. IMPRESSION: Cellulitis of anterior abdominal wall cephalad to the gastrostomy catheter. There is gas seen within the subcutaneous soft tissues in the region of the cellulitis suspicious for infection with a gas producing organism. No tanisha abscess identified. 3 low-density pancreatic masses are identified as described above. Recommend further evaluation with multiphasic contrast enhanced CT examination of the abdomen utilizing pancreatic protocol. Mild splenomegaly. Status post cholecystectomy. Large right renal pelvic calcification with smaller bilateral renal calculi as described. No urinary tract obstruction. Additional minor findings as above. Accession No. : [id number] Patient Name / ID : ALEXANDRA BRISENO / [id number] Exam Date : 06/20/2017 05:20:48 ( Approved ) Study Comment : Sex / Age : F / 71Y Creator : Moe Morris MD Dictator : Moe Morris MD Alarm Signaler : Plumber Assistant : Moe Morris MD Approver2 : Report Date : 06/20/2017 13:33:59 My Comment : PROCEDURE: CHEST RADIOGRAPH, 1 VIEW HISTORY: infected G tube site COMPARISON: 07/08/2008 FINDINGS: LUNGS: Subsegmental atelectasis at right base. No tanisha infiltrate. PLEURA: Markedly elevated right hemidiaphragm. CARDIOVASCULAR: Normal. OSSEOUS STRUCTURES: No significant abnormalities. VISUALIZED UPPER ABDOMEN: Normal. OTHER FINDINGS: None. IMPRESSION: Elevated right hemidiaphragm and right basilar subsegmental atelectasis. Assessment & Plan (1) Cellulitis, abdominal wall Status: Acute (2) Irritation around percutaneous endoscopic gastrostomy (PEG) tube site Status: Acute (3) Cough Status: Acute - Assessment and Plan (Free Text) Assessment: A/P- 71 year old female from [place] with dementia, CVA, seizure disorder, DM II, admitted with infected peg tube site. afebrile minimally elevated wbc pus and blood discharge from around peg tube site with surrounding erythema CT abd report- Cellulitis of anterior abdominal wall cephalad to the gastrostomy catheter. There is gas seen within the subcutaneous soft tissues in the region of the cellulitis suspicious for infection with a gas producing organism. plan- check wound cx from the peg tube site fluid. check blood cx x 2. check urine cx. in light of above CT report advise to start patient on IV clindamycin and IV meropnem . meropenem would also cover for pulm pathogens since pt. ahs thick cough and is from [place]. pt. to be monitored closely while receiving meropnem but low suspicion of cross reactivity with PCN. pt. to be seen by surgical team for further evaluation of the abdominal wall cellulitis with underlying subcutaneous emphysema. peg tube may need to be replaced. advise GI eval as well. check sputum cx as well Thank you fro allowing me to take part in the care of this patient. all above d/w Hospitalist at length.
[2017-06-20] MEDS ORDERED: Albuterol-Ipratrop 3 mg / 0.5 (3 ml) UD ONE (14:51)
[2017-06-20] MEDS: Albuterol-Ipratrop 3 mg / 0.5 (3 ml) UD INH SCH ×2 (16:05→19:06)
[2017-06-20] MEDS ORDERED: Sodium Chloride 3% for Inhalation 4 ML VIAL.NEB IH PRN (17:07)
[2017-06-20] MEDS: Meropenem 1 GM in Sodium Chloride 0.9% 100 ML IVPB SCH (18:22)
[2017-06-20] MEDS: DESTIN OINT TOP PRN (18:25)
[2017-06-20] MEDS: Insulin Detemir 100 Units/ml Inj SC SCH ×2 (18:30→22:40)
[2017-06-20] MEDS ORDERED: Tdap Vaccine 0.5 ml Vial (10-64 yrs) IM ONE (18:57)
[2017-06-20] MEDS: Insulin Lispro (humaLOG) 100 Units/ml Inj SC SCH ×2 (18:57→22:38)
[2017-06-20] MEDS: Dextrose 5%/0.9% NS 1,000 ML IV SCH (19:30)
[2017-06-20] MEDS ORDERED: TRIMETHOPRIM IVPB SCH (21:00)
[2017-06-20] MEDS ORDERED: WATER IVPB SCH (21:00)
[2017-06-20] MEDS ORDERED: DEXTROSE 5% IVPB SCH (21:00)
[2017-06-20] MEDS ORDERED: SULFAMETHOXAZOLE IVPB SCH (21:00)
[2017-06-20] MEDS ORDERED: Lactated Ringer's 1,000 ML IV SCH (22:00)
[2017-06-20] MEDS: OXcarbazepine 300 mg/5 ml Syringe PEG SCH (22:34)
[2017-06-21] MEDS: Meropenem 1 GM in Sodium Chloride 0.9% 100 ML IVPB SCH ×3 (01:00→16:46)
[2017-06-21] MEDS: Dextrose 5%/0.9% NS 1,000 ML IV SCH ×2 (06:40→16:40)
[2017-06-21 06:49] LABS: HEMOGLOBIN 10.7 g/dL (12.0-16.0); MEAN CELL VOLUME 91.5 fl (81.0-99.0); MEAN CORPUSCULAR HEMOGLOBIN 30.2 pg (27.0-31.0); RBC 3.54 Mil/uL (3.80-5.20); RED CELL DISTRIBUTION WIDTH 15.2 % (11.5-14.5)
[2017-06-21] MEDS: Albuterol-Ipratrop 3 mg / 0.5 (3 ml) UD INH SCH ×4 (07:22→19:39)
[2017-06-21 07:28] LABS: BLOOD UREA NITROGEN 23 mg/dl (7-17); CALCIUM 8.6 mg/dL (8.4-10.2); GFR AFRICAN-AMERICAN > 60; GFR NON-AFRICAN AMERICAN > 60
[2017-06-21] MEDS: Insulin Lispro (humaLOG) 100 Units/ml Inj SC SCH ×4 (08:07→22:14)
[2017-06-21] MEDS: Famotidine 40 MG/5 ML PEG SCH (08:14)
[2017-06-21] MEDS: OXcarbazepine 300 mg/5 ml Syringe PEG SCH ×2 (08:14→22:21)
--- NOTE | 2017-06-21 08:23 | CP.PCM.PN ---
Subjective - Date & Time of Evaluation Date of Evaluation: 06/21/17 Time of Evaluation: 08:17 - Subjective Subjective: General Surgery Progress Note for Dr. Suero This 71F was seen and examined this AM at bedside. No acute events reported overnight. Patient is non verbal. No fevers overnight. Increased drainage appears gastric cephalad to the PEG tube. Objective - Vital Signs/Intake and Output Vital Signs (last 24 hours): Temp Pulse Resp BP Pulse Ox 99.0 F 95 H 18 126/50 L 98 06/21/17 07:59 06/21/17 07:59 06/21/17 07:59 06/21/17 07:59 06/21/17 07:59 - Medications Medications: Current Medications Acetaminophen (Tylenol 325mg Tab) 650 mg PEG Q4 PRN PRN Reason: Pain, Mild (1-3) Acetaminophen (Tylenol 325mg Tab) 650 mg PEG Q4 PRN PRN Reason: Temp >100 Al Hydrox/Mg Hydrox/Simethicone (Maalox Plus 30 Ml) 30 ml PEG Q4 PRN PRN Reason: heartburn/indigestion Albuterol/Ipratropium (Duoneb 3 Mg/0.5 Mg (3 Ml) Ud) 3 ml INH RQID [facility] Last Admin: 06/21/17 07:22 Dose: 3 ml Aspirin (Aspirin Chewable) 81 mg PEG DAILY [facility] Famotidine (Pepcid) 40 mg PEG DAILY [facility] Heparin Sodium (Porcine) (Heparin) 5,000 units SC Q12 [facility] PRN Reason: Protocol Last Admin: 06/20/17 22:54 Dose: 5,000 units Clindamycin Phosphate 600 mg/ (Sodium Chloride) 54 mls @ 54 mls/hr IVPB Q8 [facility] PRN Reason: Protocol Last Admin: 06/21/17 00:07 Dose: 54 mls/hr Meropenem 1 gm/ Sodium (Chloride) 100 mls @ 100 mls/hr IVPB Q8 [facility] PRN Reason: Protocol Last Admin: 06/21/17 01:00 Dose: 100 mls/hr Dextrose/Sodium Chloride (Dextrose 5%/0.9% Ns 1000 Ml) 1,000 mls @ 100 mls/hr IV .Q10H [facility] Stop: 06/21/17 18:56 Last Admin: 06/21/17 06:40 Dose: 100 mls/hr Insulin Detemir (Levemir) 10 units SC Q12@1000,2200 [facility] Insulin Human Lispro (Humalog) 0 units SC ACCU-CHECK [facility] PRN Reason: Protocol Last Admin: 06/21/17 08:07 Dose: 3 unit Magnesium Hydroxide (Milk Of Magnesia) 30 ml PEG DAILY PRN PRN Reason: Constipation Oxcarbazepine (Trileptal) 150 mg PEG DAILY [facility] Oxcarbazepine (Trileptal) 450 mg PEG HS [facility] Last Admin: 06/20/17 22:34 Dose: 450 mg Petrolatum (Desitin Maximum Strength Topical 40% Oint) 1 applic TOP Q8 PRN PRN Reason: skin excoriation Last Admin: 06/20/17 18:25 Dose: 1 applic Topiramate (Topamax) 100 mg PO Q12 [facility] Last Admin: 06/20/17 22:00 Dose: 100 mg - Labs Labs: 06/21/17 05:50 06/21/17 05:50 - Constitutional Appears: Non-toxic, No Acute Distress - Head Exam Head Exam: NORMAL INSPECTION - Eye Exam Eye Exam: EOMI - ENT Exam ENT Exam: Mucous Membranes Moist - Respiratory Exam Respiratory Exam: NORMAL BREATHING PATTERN - Cardiovascular Exam Cardiovascular Exam: +S1, +S2 - GI/Abdominal Exam GI & Abdominal Exam: Soft. absent: Distended, Firm, Guarding, Rigid Additional comments: Gastric drainage cephalad to the PEG tube - Neurological Exam Neurological Exam: Alert, Awake Assessment and Plan - Assessment and Plan (Free Text) Assessment: 71 F with suspected g-tube leak and skin breakdown -G tube study shows no contrast extravasation -Zinc oxide for skin breakdown -Medical management as per primary -D/W Dr. Pio Templeton PGY2
--- NOTE | 2017-06-21 09:01 | CP.PCM.CON ---
<Zoe Menezes - Last Filed: 06/21/17 10:26> History of Present Illness - History of Present Illness History of Present Illness: GI Fellow PGY 4 Consult Note This is a 71yF nonverbal at baseline with pmhx of Anemia, Anxiety, COPD, CVA, Diabetes, HTN, Osteoporosis, Pneumonia, Chronic Kidney Disease, Seizures, Dysphagia s/p PEG [facility] evaluation of PEG tube. Patient is non-verbal and unable to provide any patient history. jail records state that PEG tube was leaking and skin breakdown has been going on for an unknown time period. On review of records pt had PEG replaced endoscopically for being dislodged in 2014 and 01/[address] Youngblood at [facility]. In the ER pt had a CT scan done [facility] shows cellulitis around PEG site but no abscess and this is seen clinically on exam. PEG tube is functioning okay but there is leaking around it and on imaging location is good. Pt is being treated with IV abx per ID and no surgical intervention at this time. ROS: A 12pt ROS was was unable to be obtained 2/2 nonverbal PMH: As stated in HPI PSH: PEG placement FH: Unknown Family SH: unknown tobacco/ETOH/illicit drug use, Prison/[facility] Past Patient History - Infectious Disease Hx of Infectious Diseases: None - Past Medical History & Family History Past Medical History?: Yes - Past Social History Alcohol: None Drugs: Denies - CARDIAC Hx Hypertension: Yes - PULMONARY Hx Chronic Obstructive Pulmonary Disease (COPD): Yes Hx Pneumonia: Yes - NEUROLOGICAL Hx Seizures: Yes - HEENT Hx HEENT Problems: Yes Hx Cataracts: Yes Other/Comment: APHASIA - RENAL Hx Chronic Kidney Disease: Yes - ENDOCRINE/METABOLIC Hx Diabetes Mellitus Type 2: Yes - HEMATOLOGICAL/ONCOLOGICAL Hx Anemia: Yes - INTEGUMENTARY Hx Dermatological Problems: No - MUSCULOSKELETAL/RHEUMATOLOGICAL Hx Osteoporosis: Yes - GASTROINTESTINAL Hx Gastrointestinal Disorders: Yes Hx Gastroesophageal Reflux: Yes Other/Comment: PEG Tube - GENITOURINARY/GYNECOLOGICAL Hx Genitourinary Disorders: Yes Hx Incontinence: Yes - PSYCHIATRIC Hx Anxiety: Yes - SURGICAL HISTORY Hx Surgeries: Yes Other/Comment: GASTROSTOMY - ANESTHESIA Hx Anesthesia: Yes Hx Anesthesia Reactions: No Hx Malignant Hyperthermia: No Meds Allergies/Adverse Reactions: Allergies Allergy/AdvReac Type Severity Reaction Status Date / Time aztreonam [From Azactam] Allergy Verified 03/22/17 17:32 cefepime Allergy Verified 03/22/17 17:32 moxifloxacin Allergy Verified 03/22/17 17:32 Penicillins Allergy Verified 03/22/17 17:32 tamsulosin HCl [From Flomax] Allergy Verified 03/22/17 17:32 tigecycline [From Tygacil] Allergy Verified 03/22/17 17:32 vancomycin Allergy Verified 03/22/17 17:32 pnemonia vaccine Allergy Uncoded 03/22/17 17:32 - Medications Medications: Current Medications Acetaminophen (Tylenol 325mg Tab) 650 mg PEG Q4 PRN PRN Reason: Pain, Mild (1-3) Acetaminophen (Tylenol 325mg Tab) 650 mg PEG Q4 PRN PRN Reason: Temp >100 Al Hydrox/Mg Hydrox/Simethicone (Maalox Plus 30 Ml) 30 ml PEG Q4 PRN PRN Reason: heartburn/indigestion Albuterol/Ipratropium (Duoneb 3 Mg/0.5 Mg (3 Ml) Ud) 3 ml INH RQID [facility] Last Admin: 06/21/17 07:22 Dose: 3 ml Aspirin (Aspirin Chewable) 81 mg PEG DAILY [facility] Last Admin: 06/21/17 08:17 Dose: 81 mg Famotidine (Pepcid) 40 mg PEG DAILY [facility] Last Admin: 06/21/17 08:14 Dose: 40 mg Heparin Sodium (Porcine) (Heparin) 5,000 units SC Q12 [facility] PRN Reason: Protocol Last Admin: 06/21/17 08:17 Dose: 5,000 units Clindamycin Phosphate 600 mg/ (Sodium Chloride) 54 mls @ 54 mls/hr IVPB Q8 [facility] PRN Reason: Protocol Last Admin: 06/21/17 08:11 Dose: 54 mls/hr Meropenem 1 gm/ Sodium (Chloride) 100 mls @ 100 mls/hr IVPB Q8 [facility] PRN Reason: Protocol Last Admin: 06/21/17 08:13 Dose: 100 mls/hr Dextrose/Sodium Chloride (Dextrose 5%/0.9% Ns 1000 Ml) 1,000 mls @ 100 mls/hr IV .Q10H [facility] Stop: 06/21/17 18:56 Last Admin: 06/21/17 06:40 Dose: 100 mls/hr Insulin Detemir (Levemir) 10 units SC Q12@1000,2200 [facility] Insulin Human Lispro (Humalog) 0 units SC ACCU-CHECK [facility] PRN Reason: Protocol Last Admin: 06/21/17 08:07 Dose: 3 unit Magnesium Hydroxide (Milk Of Magnesia) 30 ml PEG DAILY PRN PRN Reason: Constipation Oxcarbazepine (Trileptal) 150 mg PEG DAILY [facility] Last Admin: 06/21/17 08:14 Dose: 150 mg Oxcarbazepine (Trileptal) 450 mg PEG HS [facility] Last Admin: 06/20/17 22:34 Dose: 450 mg Petrolatum (Desitin Maximum Strength Topical 40% Oint) 1 applic TOP Q8 PRN PRN Reason: skin excoriation Last Admin: 06/20/17 18:25 Dose: 1 applic Topiramate (Topamax) 100 mg PO Q12 [facility] Last Admin: 06/20/17 22:00 Dose: 100 mg Physical Exam - Constitutional Appears: Non-toxic, No Acute Distress, Chronically Ill - Head Exam Head Exam: ATRAUMATIC, NORMAL INSPECTION, NORMOCEPHALIC - Eye Exam Eye Exam: EOMI, Normal appearance, PERRL - ENT Exam ENT Exam: Mucous Membranes Dry - Respiratory Exam Respiratory Exam: Decreased Breath Sounds, NORMAL BREATHING PATTERN - Cardiovascular Exam Cardiovascular Exam: REGULAR RHYTHM, RRR - GI/Abdominal Exam GI & Abdominal Exam: Distended, Normal Bowel Sounds, Soft, Tenderness Additional comments: PEG site with inflammation, erythema, TTP, leakage of fluid/pus around PEG site , erythema around entire abdomen, small wound - Rectal Exam Rectal Exam: Deferred - Extremities Exam Extremities exam: Positive for: pedal edema - Neurological Exam Neurological exam: Alert - Psychiatric Exam Psychiatric exam: Anxious - Skin Skin Exam: Erythema, Warm Results - Vital Signs Recent Vital Signs: Last Vital Signs Temp 99.0 F 06/21/17 07:59 Pulse 95 H 06/21/17 07:59 Resp 18 06/21/17 07:59 BP 126/50 L 06/21/17 07:59 Pulse Ox 98 06/21/17 07:59 - Labs Result Diagrams: 06/21/17 05:50 06/21/17 05:50 Labs: Laboratory Results - last 24 hr 06/20/17 06/20/17 06/20/17 06:19 18:39 21:53 WBC RBC Hgb Hct MCV MCH MCHC RDW Plt Count 108 L Sodium Potassium Chloride Carbon Dioxide Anion Gap BUN Creatinine Est GFR ( Amer) Est GFR (Non-Af Amer) POC Glucose (mg/dL) 341 H 245 H Random Glucose Calcium 06/21/17 06/21/17 06/21/17 05:29 05:50 05:50 WBC 10.0 RBC 3.54 L Hgb 10.7 L Hct 32.4 L MCV 91.5 MCH 30.2 MCHC 33.0 RDW 15.2 H Plt Count 138 Sodium 143 Potassium 4.3 Chloride 107 Carbon Dioxide 23 Anion Gap 17 BUN 23 H Creatinine 0.7 Est GFR ( Amer) > 60 Est GFR (Non-Af Amer) > 60 POC Glucose (mg/dL) 238 H Random Glucose 260 H Calcium 8.6 Assessment & Plan - Assessment and Plan (Free Text) Assessment: This is a 71yF presenting for PEG tube infection. 1. Abdominal Cellulites around PEG site 2. Malfunctioning PEG tube Plan: -Continue supportive care with pain control and anti-emetics -CT imaging reviewed with cellulites of abdominal wall around PEG tube, no abscess -Continue IV abx per ID -Blood and wound cx -Do not use PEG tube, will need to be replaced once infection improves with abx in the next 36-48 hours -Possible EGD with PEG on Saturday -IVF hydration -Monitor CBC, CMP -Will continue to follow closely <Nuno Paulson - Last Filed: 06/21/17 14:42> Meds - Medications Medications: Current Medications Acetaminophen (Tylenol 325mg Tab) 650 mg PEG Q4 PRN PRN Reason: Pain, Mild (1-3) Acetaminophen (Tylenol 325mg Tab) 650 mg PEG Q4 PRN PRN Reason: Temp >100 Al Hydrox/Mg Hydrox/Simethicone (Maalox Plus 30 Ml) 30 ml PEG Q4 PRN PRN Reason: heartburn/indigestion Albuterol/Ipratropium (Duoneb 3 Mg/0.5 Mg (3 Ml) Ud) 3 ml INH RQID [facility] Last Admin: 06/21/17 11:10 Dose: 3 ml Aspirin (Aspirin Chewable) 81 mg PEG DAILY [facility] Last Admin: 04/13/18 08:17 Dose: 81 mg Famotidine (Pepcid) 40 mg PEG DAILY [facility] Last Admin: 06/21/17 08:14 Dose: 40 mg Heparin Sodium (Porcine) (Heparin) 5,000 units SC Q12 [facility] PRN Reason: Protocol Last Admin: 06/21/17 08:17 Dose: 5,000 units Meropenem 1 gm/ Sodium (Chloride) 100 mls @ 100 mls/hr IVPB Q8 [facility] PRN Reason: Protocol Last Admin: 06/21/17 08:13 Dose: 100 mls/hr Dextrose/Sodium Chloride (Dextrose 5%/0.9% Ns 1000 Ml) 1,000 mls @ 100 mls/hr IV .Q10H [facility] Stop: 06/21/17 18:56 Last Admin: 06/21/17 06:40 Dose: 100 mls/hr Clindamycin Phosphate (Cleocin) 600 mg in 50 mls @ 50 mls/hr IVPB Q8 [facility] PRN Reason: Protocol Insulin Detemir (Levemir) 10 units SC Q12@1000,2200 [facility] Last Admin: 06/21/17 10:30 Dose: 10 units Insulin Human Lispro (Humalog) 0 units SC ACCU-CHECK [facility] PRN Reason: Protocol Last Admin: 06/21/17 11:56 Dose: 6 unit Magnesium Hydroxide (Milk Of Magnesia) 30 ml PEG DAILY PRN PRN Reason: Constipation Oxcarbazepine (Trileptal) 150 mg PEG DAILY [facility] Last Admin: 06/21/17 08:14 Dose: 150 mg Oxcarbazepine (Trileptal) 450 mg PEG HS [facility] Last Admin: 06/20/17 22:34 Dose: 450 mg Petrolatum (Desitin Maximum Strength Topical 40% Oint) 1 applic TOP Q8 PRN PRN Reason: skin excoriation Last Admin: 06/20/17 18:25 Dose: 1 applic Topiramate (Topamax) 100 mg PO Q12 [facility] Last Admin: 06/21/17 10:31 Dose: 100 mg Results - Vital Signs Recent Vital Signs: Last Vital Signs Temp 99.0 F 06/21/17 07:59 Pulse 95 H 06/21/17 07:59 Resp 18 06/21/17 07:59 BP 126/50 L 06/21/17 07:59 Pulse Ox 98 06/21/17 07:59 - Labs Result Diagrams: 06/21/17 05:50 06/21/17 05:50 Labs: Laboratory Results - last 24 hr 06/20/17 06/20/17 06/21/17 18:39 21:53 05:29 WBC RBC Hgb Hct MCV MCH MCHC RDW Plt Count Sodium Potassium Chloride Carbon Dioxide Anion Gap BUN Creatinine Est GFR ( Amer) Est GFR (Non-Af Amer) POC Glucose (mg/dL) 341 H 245 H 238 H Random Glucose Calcium 06/21/17 06/21/17 06/21/17 05:50 05:50 11:30 WBC 10.0 RBC 3.54 L Hgb 10.7 L Hct 32.4 L MCV 91.5 MCH 30.2 MCHC 33.0 RDW 15.2 H Plt Count 138 Sodium 143 Potassium 4.3 Chloride 107 Carbon Dioxide 23 Anion Gap 17 BUN 23 H Creatinine 0.7 Est GFR ( Amer) > 60 Est GFR (Non-Af Amer) > 60 POC Glucose (mg/dL) 321 H Random Glucose 260 H Calcium 8.6 Assessment & Plan - Assessment and Plan (Free Text) Plan: Use PEG for meds only. If cellulitis improves new PEG Saturday. Patient examined by me.
[2017-06-21] MEDS: Insulin Detemir 100 Units/ml Inj SC SCH ×2 (10:30→22:13)
--- NOTE | 2017-06-21 10:58 | CP.PCM.PN ---
Subjective - Date & Time of Evaluation Date of Evaluation: 06/21/17 Time of Evaluation: 10:58 - Subjective Subjective: ID Note- Pt. seen and examined today . pt. remains nonverbal and with dementia, howevre, not in any distress. as per her nurse earlier today she noticed rednes on the patient's abdomen after clindamycin was given. clindamycin on hold now and abdominal redness ahs resolved. as per nurse pt. has so far tolerated meropenem. Objective - Vital Signs/Intake and Output Vital Signs (last 24 hours): Temp Pulse Resp BP Pulse Ox 99.0 F 95 H 18 126/50 L 98 06/21/17 07:59 06/21/17 07:59 06/21/17 07:59 06/21/17 07:59 06/21/17 07:59 - Medications Medications: Current Medications Acetaminophen (Tylenol 325mg Tab) 650 mg PEG Q4 PRN PRN Reason: Pain, Mild (1-3) Acetaminophen (Tylenol 325mg Tab) 650 mg PEG Q4 PRN PRN Reason: Temp >100 Al Hydrox/Mg Hydrox/Simethicone (Maalox Plus 30 Ml) 30 ml PEG Q4 PRN PRN Reason: heartburn/indigestion Albuterol/Ipratropium (Duoneb 3 Mg/0.5 Mg (3 Ml) Ud) 3 ml INH RQID [facility] Last Admin: 06/21/17 07:22 Dose: 3 ml Aspirin (Aspirin Chewable) 81 mg PEG DAILY [facility] Last Admin: 06/21/17 08:17 Dose: 81 mg Famotidine (Pepcid) 40 mg PEG DAILY [facility] Last Admin: 06/21/17 08:14 Dose: 40 mg Heparin Sodium (Porcine) (Heparin) 5,000 units SC Q12 [facility] PRN Reason: Protocol Last Admin: 06/21/17 08:17 Dose: 5,000 units Clindamycin Phosphate 600 mg/ (Sodium Chloride) 54 mls @ 54 mls/hr IVPB Q8 [facility] PRN Reason: Protocol Last Admin: 06/21/17 08:11 Dose: 54 mls/hr Meropenem 1 gm/ Sodium (Chloride) 100 mls @ 100 mls/hr IVPB Q8 [facility] PRN Reason: Protocol Last Admin: 06/21/17 08:13 Dose: 100 mls/hr Dextrose/Sodium Chloride (Dextrose 5%/0.9% Ns 1000 Ml) 1,000 mls @ 100 mls/hr IV .Q10H [facility] Stop: 06/21/17 18:56 Last Admin: 06/21/17 06:40 Dose: 100 mls/hr Insulin Detemir (Levemir) 10 units SC Q12@1000,2200 [facility] Last Admin: 06/21/17 10:30 Dose: 10 units Insulin Human Lispro (Humalog) 0 units SC ACCU-CHECK [facility] PRN Reason: Protocol Last Admin: 06/21/17 08:07 Dose: 3 unit Magnesium Hydroxide (Milk Of Magnesia) 30 ml PEG DAILY PRN PRN Reason: Constipation Oxcarbazepine (Trileptal) 150 mg PEG DAILY [facility] Last Admin: 06/21/17 08:14 Dose: 150 mg Oxcarbazepine (Trileptal) 450 mg PEG HS [facility] Last Admin: 06/20/17 22:34 Dose: 450 mg Petrolatum (Desitin Maximum Strength Topical 40% Oint) 1 applic TOP Q8 PRN PRN Reason: skin excoriation Last Admin: 06/20/17 18:25 Dose: 1 applic Topiramate (Topamax) 100 mg PO Q12 [facility] Last Admin: 06/21/17 10:31 Dose: 100 mg - Labs Labs: - Additional Findings Additional findings: - Constitutional Appears: No Acute Distress, Agitated, Chronically Ill - Head Exam Head Exam: ATRAUMATIC - Eye Exam Eye Exam: EOMI - ENT Exam Additional comments: poor dentition dry oral mucosa - Neck Exam Neck exam: Positive for: Full Rom - Respiratory Exam Respiratory Exam: NORMAL BREATHING PATTERN Additional comments: No wheezing - Cardiovascular Exam Cardiovascular Exam: RRR, +S1, +S2 - GI/Abdominal Exam Additional comments: distended bot softer today + BS peg tube site with both pus and bloody discharge with surrounding erythema pt. keeps pulling at her PEG tube site no guarding no rebound - Extremities Exam Additional comments: no edema b/l LE - Neurological Exam Additional comments: awake but agitated and dementia skin- no erythema on abdomen but has some on her upper arms and chest but no vesicles , no papules, no macules no itching Laboratory Results - last 72 hr 06/20/17 06/20/17 06/20/17 06:19 06:19 06:25 WBC 11.3 H RBC 3.32 L Hgb 10.1 L Hct 30.4 L MCV 91.6 MCH 30.4 MCHC 33.1 RDW 15.1 H Plt Count 108 L MPV 9.1 Neut % (Auto) 76.1 H Lymph % (Auto) 15.3 L Hunt % (Auto) 6.3 Eos % (Auto) 1.5 Baso % (Auto) 0.8 Neut # (Auto) 8.6 H Lymph # (Auto) 1.7 Hunt # (Auto) 0.7 Eos # (Auto) 0.2 Baso # (Auto) 0.1 pO2 VBG pH VBG pCO2 VBG HCO3 VBG Total CO2 VBG O2 Sat (Calc) VBG Base Excess VBG Potassium Glucose Lactate FiO2 Sodium 142 Potassium 4.4 Chloride 105 Carbon Dioxide 25 Anion Gap 16 BUN 31 H Creatinine 0.5 L Est GFR ( Amer) > 60 Est GFR (Non-Af Amer) > 60 POC Glucose (mg/dL) Random Glucose 333 H Lactic Acid 1.1 Calcium 8.9 Total Bilirubin 0.3 AST 18 ALT 36 Alkaline Phosphatase 73 Total Protein 6.8 Albumin 3.3 L Globulin 3.5 Albumin/Globulin Ratio 1.0 Venous Blood Potassium Urine Color Urine Clarity Urine pH Ur Specific Mobile Urine Protein Urine Glucose (UA) Urine Ketones Urine Blood Urine Nitrate Urine Bilirubin Urine Urobilinogen Ur Leukocyte Esterase Urine RBC (Auto) Urine WBC Clumps (Auto) Urine Microscopic WBC Ur Squamous Epith Cells Ur Renal Epithelial Cell Urine Bacteria 06/20/17 06/20/17 06/20/17 07:07 08:50 18:39 WBC RBC Hgb Hct MCV MCH MCHC RDW Plt Count MPV Neut % (Auto) Lymph % (Auto) Hunt % (Auto) Eos % (Auto) Baso % (Auto) Neut # (Auto) Lymph # (Auto) Hunt # (Auto) Eos # (Auto) Baso # (Auto) pO2 43 VBG pH 7.39 VBG pCO2 50 VBG HCO3 27.7 VBG Total CO2 31.8 H VBG O2 Sat (Calc) 91.3 H VBG Base Excess 4.2 H VBG Potassium 4.7 Glucose 383 H Lactate 1.2 FiO2 21.0 Sodium 138.0 Potassium Chloride 107.0 Carbon Dioxide Anion Gap BUN Creatinine Est GFR ( Amer) Est GFR (Non-Af Amer) POC Glucose (mg/dL) 341 H Random Glucose Lactic Acid Calcium Total Bilirubin AST ALT Alkaline Phosphatase Total Protein Albumin Globulin Albumin/Globulin Ratio Venous Blood Potassium 4.7 Urine Color Yellow Urine Clarity Cloudy Urine pH 8.0 Ur Specific Mobile 1.018 Urine Protein 30 Urine Glucose (UA) >=500 Urine Ketones Negative Urine Blood Negative Urine Nitrate Negative Urine Bilirubin Negative Urine Urobilinogen 0.2-1.0 Ur Leukocyte Esterase Large Urine RBC (Auto) 22 H Urine WBC Clumps (Auto) Mod H Urine Microscopic WBC 819 H Ur Squamous Epith Cells 1 Ur Renal Epithelial Cell 2 Urine Bacteria Rare 06/20/17 06/21/17 06/21/17 21:53 05:29 05:50 WBC 10.0 RBC 3.54 L Hgb 10.7 L Hct 32.4 L MCV 91.5 MCH 30.2 MCHC 33.0 RDW 15.2 H Plt Count 138 MPV Neut % (Auto) Lymph % (Auto) Hunt % (Auto) Eos % (Auto) Baso % (Auto) Neut # (Auto) Lymph # (Auto) Hunt # (Auto) Eos # (Auto) Baso # (Auto) pO2 VBG pH VBG pCO2 VBG HCO3 VBG Total CO2 VBG O2 Sat (Calc) VBG Base Excess VBG Potassium Glucose Lactate FiO2 Sodium Potassium Chloride Carbon Dioxide Anion Gap BUN Creatinine Est GFR ( Amer) Est GFR (Non-Af Amer) POC Glucose (mg/dL) 245 H 238 H Random Glucose Lactic Acid Calcium Total Bilirubin AST ALT Alkaline Phosphatase Total Protein Albumin Globulin Albumin/Globulin Ratio Venous Blood Potassium Urine Color Urine Clarity Urine pH Ur Specific Mobile Urine Protein Urine Glucose (UA) Urine Ketones Urine Blood Urine Nitrate Urine Bilirubin Urine Urobilinogen Ur Leukocyte Esterase Urine RBC (Auto) Urine WBC Clumps (Auto) Urine Microscopic WBC Ur Squamous Epith Cells Ur Renal Epithelial Cell Urine Bacteria 06/21/17 06/21/17 05:50 11:30 WBC RBC Hgb Hct MCV MCH MCHC RDW Plt Count MPV Neut % (Auto) Lymph % (Auto) Hunt % (Auto) Eos % (Auto) Baso % (Auto) Neut # (Auto) Lymph # (Auto) Hunt # (Auto) Eos # (Auto) Baso # (Auto) pO2 VBG pH VBG pCO2 VBG HCO3 VBG Total CO2 VBG O2 Sat (Calc) VBG Base Excess VBG Potassium Glucose Lactate FiO2 Sodium 143 Potassium 4.3 Chloride 107 Carbon Dioxide 23 Anion Gap 17 BUN 23 H Creatinine 0.7 Est GFR ( Amer) > 60 Est GFR (Non-Af Amer) > 60 POC Glucose (mg/dL) 321 H Random Glucose 260 H Lactic Acid Calcium 8.6 Total Bilirubin AST ALT Alkaline Phosphatase Total Protein Albumin Globulin Albumin/Globulin Ratio Venous Blood Potassium Urine Color Urine Clarity Urine pH Ur Specific Mobile Urine Protein Urine Glucose (UA) Urine Ketones Urine Blood Urine Nitrate Urine Bilirubin Urine Urobilinogen Ur Leukocyte Esterase Urine RBC (Auto) Urine WBC Clumps (Auto) Urine Microscopic WBC Ur Squamous Epith Cells Ur Renal Epithelial Cell Urine Bacteria Microbiology 06/20/17 15:10 Abdomen Gram Stain - Final 06/20/17 15:10 Abdomen Wound Culture - Preliminary Gram Negative Emil 06/20/17 06:19 Blood Blood Culture - Preliminary NO GROWTH AFTER 24 HOURS Assessment and Plan (1) Cellulitis, abdominal wall Status: Acute (2) Irritation around percutaneous endoscopic gastrostomy (PEG) tube site Status: Acute (3) Cough Status: Acute - Assessment and Plan (Free Text) Assessment: A/P- 71 year old female from [place] with dementia, CVA, seizure disorder, DM II, admitted with infected peg tube site. afebrile minimal leukocytosis has resolved. pus and blood discharge from around peg tube site with surrounding cellulitis. blood cx- neg x 1 peg tube site wound cx- prelim GNR plan- await ID and sensitivity of the GNR in wound cx. continue with IV meropenm ( monitor patient closely while on antibiotics since she has beeen recorded to have multiple medication allergies). peg tube needs to be removed as site is all infected. Perhaps NGT for next few days until infection is improved. would need new peg tube once infection is improved or cleared. also will start patient on IV daptomycin for the cellulitis in light of her multiple allergies to other antibiotics. check cpk while on dapto. nurse instructed at length to monitor closely for any allergic reactions to antibiotics and to notify me or PMD if anything and hold the abx if any reactions. all above d/w who is pt's PMD at length.
[2017-06-21] MEDS ORDERED: DAPTOmycin 500 mg Inj (Cubicin) IV SCH (14:45)
[2017-06-21] MEDS ORDERED: Clindamycin 600mg/50ml D5W 600 MG/50 ML VIAL IVPB SCH (17:00)
[2017-06-21] MEDS: DESTIN OINT TOP PRN (21:48)
[2017-06-22] MEDS: Meropenem 1 GM in Sodium Chloride 0.9% 100 ML IVPB SCH ×3 (01:30→16:00)
--- NOTE | 2017-06-22 02:40 | PN ---
DATE: 06/21/2017 DAILY PROGRESS NOTE SUBJECTIVE: The patient is seen today 06/21/2017. She is not in any cardiopulmonary distress. PHYSICAL EXAMINATION: VITAL SIGNS: Blood pressure is 126/50, temperature is 99.0, respiratory rate is 18, and pulse is 90. HEENT: Pupils are equal and reactive to light. Gingival hyperplasia. NECK: Supple. No JVD. No carotid bruit. No lymph node. No thyromegaly. CHEST AND LUNGS: Bilateral symmetrical expansion. Good air exchange. No rales. No rhonchi. CARDIOVASCULAR: PMI not localized, S1 and S2. No additional sounds. ABDOMEN: There is redness of the abdominal wall. Gastric tube in place. EXTREMITIES: No cyanosis. No clubbing. No edema. CENTRAL NERVOUS SYSTEM: Awake, but she is disoriented and aphasic. The patient is bedridden status post CVA. ASSESSMENT: 1. Cellulitis of the anterior abdominal wall. 2. Gastric tube feeding. 3. History of seizure disorder. 4. Hypertension. 5. Type 2 diabetes mellitus. PLAN: Continue current IV antibiotics as per ID, was taking precautions for allergy. Vikas Blair MD MTDDarcy
[2017-06-22] MEDS: Insulin Lispro (humaLOG) 100 Units/ml Inj SC SCH ×4 (06:55→22:15)
[2017-06-22] MEDS: Albuterol-Ipratrop 3 mg / 0.5 (3 ml) UD INH SCH ×4 (07:21→19:16)
[2017-06-22] MEDS: DESTIN OINT TOP PRN (09:11)
[2017-06-22] MEDS: Insulin Detemir 100 Units/ml Inj SC SCH ×2 (09:14→22:08)
[2017-06-22] MEDS: Famotidine 40 MG/5 ML PEG SCH (09:15)
[2017-06-22] MEDS: OXcarbazepine 300 mg/5 ml Syringe PEG SCH ×2 (09:16→21:05)
[2017-06-22] MEDS ORDERED: OXcarbazepine 300 mg/5 ml Syringe PEG STA (14:07)
--- NOTE | 2017-06-22 14:45 | CP.PCM.PN ---
Subjective - Date & Time of Evaluation Date of Evaluation: 06/22/17 Time of Evaluation: 14:45 - Subjective Subjective: ID Note- Pt. seen and examined today. resting comfortable in NAD. no fever or chills. has some erythema on hands and abdomen but is not itching and none on her face. Objective - Vital Signs/Intake and Output Vital Signs (last 24 hours): Temp Pulse Resp BP Pulse Ox 99.0 F 92 H 17 136/72 99 06/22/17 08:19 06/22/17 08:19 06/22/17 08:19 06/22/17 08:19 06/22/17 08:19 - Medications Medications: Current Medications Acetaminophen (Tylenol 325mg Tab) 650 mg PEG Q4 PRN PRN Reason: Pain, Mild (1-3) Acetaminophen (Tylenol 325mg Tab) 650 mg PEG Q4 PRN PRN Reason: Temp >100 Last Admin: 06/21/17 17:24 Dose: 650 mg Al Hydrox/Mg Hydrox/Simethicone (Maalox Plus 30 Ml) 30 ml PEG Q4 PRN PRN Reason: heartburn/indigestion Albuterol/Ipratropium (Duoneb 3 Mg/0.5 Mg (3 Ml) Ud) 3 ml INH RQID [facility] Last Admin: 06/22/17 11:10 Dose: 3 ml Aspirin (Aspirin Chewable) 81 mg PEG DAILY [facility] Last Admin: 06/22/17 09:12 Dose: 81 mg Diphenhydramine HCl (Benadryl) 25 mg PEG Q8 [facility] Stop: 06/24/17 17:01 Famotidine (Pepcid) 40 mg PEG DAILY [facility] Last Admin: 06/22/17 09:15 Dose: 40 mg Heparin Sodium (Porcine) (Heparin) 5,000 units SC Q12 [facility] PRN Reason: Protocol Last Admin: 06/22/17 09:12 Dose: 5,000 units Meropenem 1 gm/ Sodium (Chloride) 100 mls @ 100 mls/hr IVPB Q8 [facility] PRN Reason: Protocol Last Admin: 06/22/17 09:14 Dose: 100 mls/hr Daptomycin 340 mg/ Sodium (Chloride) 100 mls @ 100 mls/hr IV DAILY@2100 [facility] Stop: 06/26/17 15:01 Insulin Detemir (Levemir) 10 units SC Q12@1000,2200 [facility] Last Admin: 06/22/17 09:14 Dose: 10 units Insulin Human Lispro (Humalog) 0 units SC ACCU-CHECK [facility] PRN Reason: Protocol Last Admin: 06/22/17 12:13 Dose: 6 unit Magnesium Hydroxide (Milk Of Magnesia) 30 ml PEG DAILY PRN PRN Reason: Constipation Oxcarbazepine (Trileptal) 450 mg PEG HS [facility] Last Admin: 06/21/17 22:21 Dose: 450 mg Oxcarbazepine (Trileptal) 300 mg PEG DAILY [facility] Petrolatum (Desitin Maximum Strength Topical 40% Oint) 1 applic TOP Q8 PRN PRN Reason: skin excoriation Last Admin: 06/22/17 09:11 Dose: 1 applic Topiramate (Topamax) 100 mg PO Q12 [facility] Last Admin: 06/22/17 09:15 Dose: 100 mg - Labs Labs: - Additional Findings Additional findings: - Constitutional Appears: No Acute Distress, Agitated, Chronically Ill - Head Exam Head Exam: ATRAUMATIC - Eye Exam Eye Exam: EOMI - ENT Exam Additional comments: poor dentition dry oral mucosa - Neck Exam Neck exam: Positive for: Full Rom - Respiratory Exam Respiratory Exam: NORMAL BREATHING PATTERN Additional comments: No wheezing - Cardiovascular Exam Cardiovascular Exam: RRR, +S1, +S2 - GI/Abdominal Exam Additional comments: distended bot softer today + BS peg tube site with both pus and bloody discharge no guarding no rebound - Extremities Exam Additional comments: no edema b/l LE - Neurological Exam Additional comments: awake but has dementia skin- has erythema on abdomen but has some on her upper arms and chest but no vesicles , no papules, no macules no itching Laboratory Results - last 72 hr 06/20/17 06/20/17 06/20/17 06:19 06:19 06:25 WBC 11.3 H RBC 3.32 L Hgb 10.1 L Hct 30.4 L MCV 91.6 MCH 30.4 MCHC 33.1 RDW 15.1 H Plt Count 108 L MPV 9.1 Neut % (Auto) 76.1 H Lymph % (Auto) 15.3 L [place] % (Auto) 6.3 Eos % (Auto) 1.5 Baso % (Auto) 0.8 Neut # (Auto) 8.6 H Lymph # (Auto) 1.7 [place] # (Auto) 0.7 Eos # (Auto) 0.2 Baso # (Auto) 0.1 pO2 VBG pH VBG pCO2 VBG HCO3 VBG Total CO2 VBG O2 Sat (Calc) VBG Base Excess VBG Potassium Glucose Lactate FiO2 Sodium 142 Potassium 4.4 Chloride 105 Carbon Dioxide 25 Anion Gap 16 BUN 31 H Creatinine 0.5 L Est GFR ( Amer) > 60 Est GFR (Non-Af Amer) > 60 POC Glucose (mg/dL) Random Glucose 333 H Lactic Acid 1.1 Calcium 8.9 Total Bilirubin 0.3 AST 18 ALT 36 Alkaline Phosphatase 73 Total Protein 6.8 Albumin 3.3 L Globulin 3.5 Albumin/Globulin Ratio 1.0 Venous Blood Potassium Urine Color Urine Clarity Urine pH Ur Specific [place] Urine Protein Urine Glucose (UA) Urine Ketones Urine Blood Urine Nitrate Urine Bilirubin Urine Urobilinogen Ur Leukocyte Esterase Urine RBC (Auto) Urine WBC Clumps (Auto) Urine Microscopic WBC Ur Squamous Epith Cells Ur Renal Epithelial Cell Urine Bacteria 06/20/17 06/20/17 06/20/17 07:07 08:50 18:39 WBC RBC Hgb Hct MCV MCH MCHC RDW Plt Count MPV Neut % (Auto) Lymph % (Auto) [place] % (Auto) Eos % (Auto) Baso % (Auto) Neut # (Auto) Lymph # (Auto) [place] # (Auto) Eos # (Auto) Baso # (Auto) pO2 43 VBG pH 7.39 VBG pCO2 50 VBG HCO3 27.7 VBG Total CO2 31.8 H VBG O2 Sat (Calc) 91.3 H VBG Base Excess 4.2 H VBG Potassium 4.7 Glucose 383 H Lactate 1.2 FiO2 21.0 Sodium 138.0 Potassium Chloride 107.0 Carbon Dioxide Anion Gap BUN Creatinine Est GFR ( Amer) Est GFR (Non-Af Amer) POC Glucose (mg/dL) 341 H Random Glucose Lactic Acid Calcium Total Bilirubin AST ALT Alkaline Phosphatase Total Protein Albumin Globulin Albumin/Globulin Ratio Venous Blood Potassium 4.7 Urine Color Yellow Urine Clarity Cloudy Urine pH 8.0 Ur Specific [place] 1.018 Urine Protein 30 Urine Glucose (UA) >=500 Urine Ketones Negative Urine Blood Negative Urine Nitrate Negative Urine Bilirubin Negative Urine Urobilinogen 0.2-1.0 Ur Leukocyte Esterase Large Urine RBC (Auto) 22 H Urine WBC Clumps (Auto) Mod H Urine Microscopic WBC 819 H Ur Squamous Epith Cells 1 Ur Renal Epithelial Cell 2 Urine Bacteria Rare 06/20/17 06/21/17 06/21/17 21:53 05:29 05:50 WBC 10.0 RBC 3.54 L Hgb 10.7 L Hct 32.4 L MCV 91.5 MCH 30.2 MCHC 33.0 RDW 15.2 H Plt Count 138 MPV Neut % (Auto) Lymph % (Auto) [place] % (Auto) Eos % (Auto) Baso % (Auto) Neut # (Auto) Lymph # (Auto) [place] # (Auto) Eos # (Auto) Baso # (Auto) pO2 VBG pH VBG pCO2 VBG HCO3 VBG Total CO2 VBG O2 Sat (Calc) VBG Base Excess VBG Potassium Glucose Lactate FiO2 Sodium Potassium Chloride Carbon Dioxide Anion Gap BUN Creatinine Est GFR ( Amer) Est GFR (Non-Af Amer) POC Glucose (mg/dL) 245 H 238 H Random Glucose Lactic Acid Calcium Total Bilirubin AST ALT Alkaline Phosphatase Total Protein Albumin Globulin Albumin/Globulin Ratio Venous Blood Potassium Urine Color Urine Clarity Urine pH Ur Specific [place] Urine Protein Urine Glucose (UA) Urine Ketones Urine Blood Urine Nitrate Urine Bilirubin Urine Urobilinogen Ur Leukocyte Esterase Urine RBC (Auto) Urine WBC Clumps (Auto) Urine Microscopic WBC Ur Squamous Epith Cells Ur Renal Epithelial Cell Urine Bacteria 06/21/17 06/21/17 06/21/17 05:50 11:30 17:05 WBC RBC Hgb Hct MCV MCH MCHC RDW Plt Count MPV Neut % (Auto) Lymph % (Auto) [place] % (Auto) Eos % (Auto) Baso % (Auto) Neut # (Auto) Lymph # (Auto) [place] # (Auto) Eos # (Auto) Baso # (Auto) pO2 VBG pH VBG pCO2 VBG HCO3 VBG Total CO2 VBG O2 Sat (Calc) VBG Base Excess VBG Potassium Glucose Lactate FiO2 Sodium 143 Potassium 4.3 Chloride 107 Carbon Dioxide 23 Anion Gap 17 BUN 23 H Creatinine 0.7 Est GFR ( Amer) > 60 Est GFR (Non-Af Amer) > 60 POC Glucose (mg/dL) 321 H 258 H Random Glucose 260 H Lactic Acid Calcium 8.6 Total Bilirubin AST ALT Alkaline Phosphatase Total Protein Albumin Globulin Albumin/Globulin Ratio Venous Blood Potassium Urine Color Urine Clarity Urine pH Ur Specific [place] Urine Protein Urine Glucose (UA) Urine Ketones Urine Blood Urine Nitrate Urine Bilirubin Urine Urobilinogen Ur Leukocyte Esterase Urine RBC (Auto) Urine WBC Clumps (Auto) Urine Microscopic WBC Ur Squamous Epith Cells Ur Renal Epithelial Cell Urine Bacteria 06/21/17 06/22/17 06/22/17 21:56 05:39 11:13 WBC RBC Hgb Hct MCV MCH MCHC RDW Plt Count MPV Neut % (Auto) Lymph % (Auto) [place] % (Auto) Eos % (Auto) Baso % (Auto) Neut # (Auto) Lymph # (Auto) [place] # (Auto) Eos # (Auto) Baso # (Auto) pO2 VBG pH VBG pCO2 VBG HCO3 VBG Total CO2 VBG O2 Sat (Calc) VBG Base Excess VBG Potassium Glucose Lactate FiO2 Sodium Potassium Chloride Carbon Dioxide Anion Gap BUN Creatinine Est GFR ( Amer) Est GFR (Non-Af Amer) POC Glucose (mg/dL) 241 H 277 H 305 H Random Glucose Lactic Acid Calcium Total Bilirubin AST ALT Alkaline Phosphatase Total Protein Albumin Globulin Albumin/Globulin Ratio Venous Blood Potassium Urine Color Urine Clarity Urine pH Ur Specific [place] Urine Protein Urine Glucose (UA) Urine Ketones Urine Blood Urine Nitrate Urine Bilirubin Urine Urobilinogen Ur Leukocyte Esterase Urine RBC (Auto) Urine WBC Clumps (Auto) Urine Microscopic WBC Ur Squamous Epith Cells Ur Renal Epithelial Cell Urine Bacteria 06/22/17 15:42 WBC RBC Hgb Hct MCV MCH MCHC RDW Plt Count MPV Neut % (Auto) Lymph % (Auto) [place] % (Auto) Eos % (Auto) Baso % (Auto) Neut # (Auto) Lymph # (Auto) [place] # (Auto) Eos # (Auto) Baso # (Auto) pO2 VBG pH VBG pCO2 VBG HCO3 VBG Total CO2 VBG O2 Sat (Calc) VBG Base Excess VBG Potassium Glucose Lactate FiO2 Sodium Potassium Chloride Carbon Dioxide Anion Gap BUN Creatinine Est GFR ( Amer) Est GFR (Non-Af Amer) POC Glucose (mg/dL) 264 H Random Glucose Lactic Acid Calcium Total Bilirubin AST ALT Alkaline Phosphatase Total Protein Albumin Globulin Albumin/Globulin Ratio Venous Blood Potassium Urine Color Urine Clarity Urine pH Ur Specific [place] Urine Protein Urine Glucose (UA) Urine Ketones Urine Blood Urine Nitrate Urine Bilirubin Urine Urobilinogen Ur Leukocyte Esterase Urine RBC (Auto) Urine WBC Clumps (Auto) Urine Microscopic WBC Ur Squamous Epith Cells Ur Renal Epithelial Cell Urine Bacteria Microbiology 06/20/17 15:10 Abdomen Gram Stain - Final 06/20/17 15:10 Abdomen Wound Culture - Preliminary Gram Negative Emil Gram Positive Cocci 06/20/17 06:19 Blood Blood Culture - Preliminary NO GROWTH AFTER 48 HOURS Assessment and Plan (1) Cellulitis, abdominal wall Status: Acute (2) Irritation around percutaneous endoscopic gastrostomy (PEG) tube site Status: Acute (3) Cough Status: Acute - Assessment and Plan (Free Text) Assessment: A/P- 71 year old female from [place] with dementia, CVA, seizure disorder, DM II, admitted with infected peg tube site. afebrile today but t-max-101.9 yesterday faternoon minimal leukocytosis has resolved. pus and blood discharge from around peg tube site with surrounding cellulitis. blood cx- neg x 1 peg tube site wound cx- prelim GNR and GPC plan- await ID and sensitivity of the GNR and GPC in wound cx. continue with IV meropenm ( monitor patient closely while on antibiotics since she has beeen recorded to have multiple medication allergies). day #2 continue also with IV daptomycin . day #2 peg tube needs to be removed as site is all infected. Perhaps NGT for next few days until infection is improved. would need new peg tube once infection is improved or cleared. pt. has multiple antibiotic allergies and hard to discern to which she reacts with erythema but does not have nay lip swelling and is comfortable. advised nurse to perhaps give low dose bendaryl prior to each antibiotic administration as she needs to be treated for her intrabadominal infection. check cpk while on dapto. nurse instructed at length to monitor closely for any allergic reactions to antibiotics and to notify me or PMD if anything and hold the abx if any reactions. all above d/w who is pt's PMD at length.
--- NOTE | 2017-06-22 22:54 | CP.PCM.PN ---
Subjective - Date & Time of Evaluation Date of Evaluation: 06/22/17 Time of Evaluation: 22:52 - Subjective Subjective: Patient has generalized rash. No acute distress Objective - Vital Signs/Intake and Output Vital Signs (last 24 hours): Temp Pulse Resp BP Pulse Ox 98.9 F 96 H 20 139/60 97 06/22/17 16:19 06/22/17 16:19 06/22/17 16:19 06/22/17 16:19 06/22/17 16:19 - Medications Medications: Current Medications Acetaminophen (Tylenol 325mg Tab) 650 mg PEG Q4 PRN PRN Reason: Pain, Mild (1-3) Acetaminophen (Tylenol 325mg Tab) 650 mg PEG Q4 PRN PRN Reason: Temp >100 Last Admin: 06/21/17 17:24 Dose: 650 mg Al Hydrox/Mg Hydrox/Simethicone (Maalox Plus 30 Ml) 30 ml PEG Q4 PRN PRN Reason: heartburn/indigestion Albuterol/Ipratropium (Duoneb 3 Mg/0.5 Mg (3 Ml) Ud) 3 ml INH RQID [facility] Last Admin: 06/22/17 19:16 Dose: 3 ml Aspirin (Aspirin Chewable) 81 mg PEG DAILY [facility] Last Admin: 06/22/17 09:12 Dose: 81 mg Diphenhydramine HCl (Benadryl) 25 mg PEG Q8 [facility] Stop: 06/24/17 17:01 Last Admin: 06/22/17 17:25 Dose: Not Given Famotidine (Pepcid) 40 mg PEG DAILY [facility] Last Admin: 06/22/17 09:15 Dose: 40 mg Heparin Sodium (Porcine) (Heparin) 5,000 units SC Q12 [facility] PRN Reason: Protocol Last Admin: 06/22/17 22:08 Dose: 5,000 units Meropenem 1 gm/ Sodium (Chloride) 100 mls @ 100 mls/hr IVPB Q8 [facility] PRN Reason: Protocol Last Admin: 06/22/17 16:00 Dose: 100 mls/hr Daptomycin 340 mg/ Sodium (Chloride) 100 mls @ 100 mls/hr IV DAILY@2100 [facility] Stop: 06/26/17 15:01 Last Admin: 06/22/17 20:53 Dose: 100 mls/hr Insulin Detemir (Levemir) 10 units SC Q12@1000,2200 [facility] Last Admin: 06/22/17 22:08 Dose: 10 units Insulin Human Lispro (Humalog) 0 units SC ACCU-CHECK [facility] PRN Reason: Protocol Last Admin: 06/22/17 22:15 Dose: Not Given Magnesium Hydroxide (Milk Of Magnesia) 30 ml PEG DAILY PRN PRN Reason: Constipation Oxcarbazepine (Trileptal) 450 mg PEG HS [facility] Last Admin: 06/22/17 21:05 Dose: 450 mg Oxcarbazepine (Trileptal) 300 mg PEG DAILY [facility] Petrolatum (Desitin Maximum Strength Topical 40% Oint) 1 applic TOP Q8 PRN PRN Reason: skin excoriation Last Admin: 06/22/17 09:11 Dose: 1 applic Topiramate (Topamax) 100 mg PO Q12 [facility] Last Admin: 06/22/17 20:54 Dose: 100 mg - Labs Labs: 06/21/17 05:50 06/21/17 05:50 - Head Exam Head Exam: ATRAUMATIC - Eye Exam Eye Exam: Normal appearance Pupil Exam: PERRL - Neck Exam Neck Exam: Full ROM - Respiratory Exam Respiratory Exam: NORMAL BREATHING PATTERN - Cardiovascular Exam Cardiovascular Exam: REGULAR RHYTHM, +S1, +S2 - GI/Abdominal Exam GI & Abdominal Exam: Soft, Normal Bowel Sounds Additional comments: Abdominal redness and duration less extensive and mostly involving area immediately around gastrostomy site. Assessment and Plan (1) Cellulitis, abdominal wall Assessment & Plan: Cellulitis improving. PEG on Saturday. Status: Acute
[2017-06-23] MEDS: Meropenem 1 GM in Sodium Chloride 0.9% 100 ML IVPB SCH ×3 (00:03→17:16)
[2017-06-23] MEDS: Albuterol-Ipratrop 3 mg / 0.5 (3 ml) UD INH SCH ×4 (08:30→20:16)
[2017-06-23] MEDS: Insulin Lispro (humaLOG) 100 Units/ml Inj SC SCH ×4 (08:55→22:20)
[2017-06-23] MEDS: Insulin Detemir 100 Units/ml Inj SC SCH ×2 (09:00→22:21)
[2017-06-23] MEDS: Famotidine 40 MG/5 ML PEG SCH (09:01)
[2017-06-23] MEDS: OXcarbazepine 300 mg/5 ml Syringe PEG SCH ×2 (09:02→21:37)
[2017-06-23] MEDS ORDERED: DiphenhydrAMINE 12.5 mg/5 ml LIQ UD (5 ml) PEG PRN (18:20)
--- NOTE | 2017-06-23 21:32 | PN ---
DAILY PROGRESS NOTE DATE: 06/23/2017 SUBJECTIVE: The patient is seen today 06/23/2017. She still has redness in both upper extremities and lower extremities, on IV meropenem and Cubicin. The patient is also on Benadryl. She has poor IV access. OBJECTIVE: VITAL SIGNS: Blood pressure 101/59, temperature 98.7, respiratory rate 18, and pulse 90. HEENT: Pupils equal and reactive to light. Normal-appearing mucosa of the conjunctivae, oropharynx, and nasal membrane mucosa. NECK: Supple. No JVD. No carotid bruit. No lymph node. No thyromegaly. CHEST AND LUNGS: Bilateral symmetrical expansion. Good air exchange. No rales. No rhonchi. CARDIOVASCULAR: PMI not localized, S1 and S2. No additional sounds. ABDOMEN: Gastric tube, there is an open wound above the gastric tube with redness of the anterior abdominal wall. EXTREMITIES: No cyanosis. No clubbing. No edema. CENTRAL NERVOUS SYSTEM: The patient is awake, but she has right-sided hemiparesis. ASSESSMENT: Cellulitis of the anterior abdominal wall, infected wound around the gastric tube, seizure disorder, type 2 diabetes mellitus, and hypertension. PLAN: Continue current antibiotics as per ID and antiseizure medications. We will continue Benadryl and we will order PICC line due to the poor venous access. Vikas Blair MD
[2017-06-23] MEDS ORDERED: DiphenhydrAMINE 12.5 mg/5 ml LIQ UD (5 ml) PEG SCH (22:00)
[2017-06-24] MEDS: DiphenhydrAMINE 12.5 mg/5 ml LIQ UD (5 ml) PEG SCH ×5 (00:36→16:55)
[2017-06-24] MEDS: Meropenem 1 GM in Sodium Chloride 0.9% 100 ML IVPB SCH ×2 (00:38→10:11)
[2017-06-24] MEDS: DESTIN OINT TOP PRN (00:43)
[2017-06-24] MEDS: Albuterol-Ipratrop 3 mg / 0.5 (3 ml) UD INH SCH ×4 (07:12→19:58)
--- NOTE | 2017-06-24 07:25 | PN ---
DATE: 06/22/2017 DAILY PROGRESS NOTE SUBJECTIVE: The patient is seen today 06/22/2017. She is not in any cardiopulmonary distress. The patient was having witnessed seizures by the bedside during this examination. PHYSICAL EXAMINATION: VITAL SIGNS: Blood pressure is 136/72, temperature is 98, respiratory rate is 17, and pulse is 92. HEENT: Pupils are equal and reactive to light. Normal appearing mucosa of the conjunctivae, oropharynx, and nasal membrane mucosa. NECK: Supple. No JVD. No carotid bruit. No lymph node. No thyromegaly. CHEST AND LUNGS: Bilateral symmetrical expansion. Good air exchange. No rales. No rhonchi. CARDIOVASCULAR SYSTEM: PMI not localized, S1 and S2. No additional sounds. ABDOMEN: Normoactive bowel sounds. There is some slight tenderness and redness of the anterior abdominal wall with a wound above the gastric tube. EXTREMITIES: No cyanosis. No clubbing. No edema. CENTRAL NERVOUS SYSTEM: Alert, awake, and oriented x1. ASSESSMENT: 1. Cellulitis of the anterior abdominal wall. 2. Infected wound of the gastric tube. 3. Type 2 diabetes mellitus. 4. Hypertension. PLAN: Continue current IV antibiotics and increase , well as follow ID recommendation. Vikas Blair MD MTDD
[2017-06-24] MEDS: OXcarbazepine 300 mg/5 ml Syringe PEG SCH ×3 (08:40→21:03)
[2017-06-24] MEDS: Insulin Lispro (humaLOG) 100 Units/ml Inj SC SCH ×5 (08:40→21:59)
[2017-06-24] MEDS: Famotidine 40 MG/5 ML PEG SCH ×3 (08:40→10:12)
[2017-06-24] MEDS: Insulin Detemir 100 Units/ml Inj SC SCH ×2 (10:58→21:04)
[2017-06-24 11:43] LABS: HEMOGLOBIN 9.2 g/dL (12.0-16.0); MEAN CELL VOLUME 92.7 fl (81.0-99.0); MEAN CORPUSCULAR HEMOGLOBIN 29.8 pg (27.0-31.0); MEAN CORPUSCULAR HGB CONC 32.2 g/dL (33.0-37.0); RBC 3.08 Mil/uL (3.80-5.20); RED CELL DISTRIBUTION WIDTH 15.3 % (11.5-14.5); WHITE BLOOD COUNT 9.5 K/uL (4.8-10.8)
[2017-06-24 11:50] LABS: BLOOD UREA NITROGEN 19 mg/dl (7-17); CALCIUM 7.9 mg/dL (8.4-10.2); GFR AFRICAN-AMERICAN > 60; GFR NON-AFRICAN AMERICAN > 60
[2017-06-24 11:56] LABS: INR 1.2 (0.9-1.2); PROTHROMBIN TIME 13.5 Seconds (9.8-13.1)
--- NOTE | 2017-06-24 13:14 | CP.PCM.PN ---
Subjective - Date & Time of Evaluation Date of Evaluation: 06/24/17 Time of Evaluation: 13:11 - Subjective Subjective: Patient remains poorly responsive Objective - Vital Signs/Intake and Output Vital Signs (last 24 hours): Temp Pulse Resp BP Pulse Ox 99.2 F 78 20 147/80 98 06/24/17 09:00 06/24/17 09:00 06/24/17 09:00 06/24/17 09:00 06/24/17 09:00 - Medications Medications: Current Medications Acetaminophen (Tylenol 325mg Tab) 650 mg PEG Q4 PRN PRN Reason: Pain, Mild (1-3) Acetaminophen (Tylenol 325mg Tab) 650 mg PEG Q4 PRN PRN Reason: Temp >100 Last Admin: 06/21/17 17:24 Dose: 650 mg Al Hydrox/Mg Hydrox/Simethicone (Maalox Plus 30 Ml) 30 ml PEG Q4 PRN PRN Reason: heartburn/indigestion Albuterol/Ipratropium (Duoneb 3 Mg/0.5 Mg (3 Ml) Ud) 3 ml INH RQID [facility] Last Admin: 06/24/17 11:44 Dose: Not Given Diphenhydramine HCl (Benadryl) 25 mg PEG Q8 [facility] Last Admin: 06/24/17 10:12 Dose: 25 mg Famotidine (Pepcid) 40 mg PEG DAILY [facility] Last Admin: 06/24/17 10:12 Dose: 40 mg Heparin Sodium (Porcine) (Heparin) 5,000 units SC Q12 [facility] PRN Reason: Protocol Last Admin: 06/24/17 10:59 Dose: 5,000 units Meropenem 1 gm/ Sodium (Chloride) 100 mls @ 100 mls/hr IVPB Q8 [facility] PRN Reason: Protocol Last Admin: 06/24/17 10:11 Dose: Not Given Daptomycin 340 mg/ Sodium (Chloride) 100 mls @ 100 mls/hr IV DAILY@2100 [facility] Stop: 06/26/17 15:01 Last Admin: 06/23/17 21:37 Dose: 100 mls/hr Insulin Detemir (Levemir) 10 units SC Q12@1000,2200 [facility] Last Admin: 06/24/17 10:58 Dose: 10 units Insulin Human Lispro (Humalog) 0 units SC ACCU-CHECK [facility] PRN Reason: Protocol Last Admin: 06/24/17 10:58 Dose: 3 unit Magnesium Hydroxide (Milk Of Magnesia) 30 ml PEG DAILY PRN PRN Reason: Constipation Oxcarbazepine (Trileptal) 450 mg PEG HS [facility] Last Admin: 06/23/17 21:37 Dose: 450 mg Oxcarbazepine (Trileptal) 300 mg PEG DAILY [facility] Last Admin: 06/24/17 10:17 Dose: 300 mg Petrolatum (Desitin Maximum Strength Topical 40% Oint) 1 applic TOP Q8 PRN PRN Reason: skin excoriation Last Admin: 06/24/17 00:43 Dose: 1 applic Topiramate (Topamax) 100 mg PO Q12 [facility] Last Admin: 06/24/17 10:12 Dose: 100 mg - Labs Labs: 06/24/17 11:30 06/24/17 11:18 PT 13.5 Seconds (9.8-13.1) H 06/24/17 11:30 INR 1.2 (0.9-1.2) 06/24/17 11:30 - Head Exam Head Exam: ATRAUMATIC - Eye Exam Pupil Exam: NORMAL ACCOMODATION - ENT Exam ENT Exam: Mucous Membranes Moist - Respiratory Exam Respiratory Exam: Clear to Ausculation Bilateral - Cardiovascular Exam Cardiovascular Exam: REGULAR RHYTHM - GI/Abdominal Exam GI & Abdominal Exam: Tenderness Additional comments: Erythema and induration appear improved. 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 Telfa gauze placed over opening. Assessment and Plan (1) Cellulitis, abdominal wall Assessment & Plan: Current PEG appears functioning well. 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 Recommend surgical consultation. Status: Acute
--- NOTE | 2017-06-24 14:29 | CP.PCM.PN ---
Subjective - Date & Time of Evaluation Date of Evaluation: 06/24/17 Time of Evaluation: 14:29 - Subjective Subjective: ID Note- Pt. seen and examined today. was informed earlier today by nurse that pt. has swelling and blisters on her arms. had advised to hold all antibiotics. pt. currently resting comfortably in bed in [facility]. Objective - Vital Signs/Intake and Output Vital Signs (last 24 hours): Temp Pulse Resp BP Pulse Ox 99.2 F 78 20 147/80 98 06/24/17 09:00 06/24/17 09:00 06/24/17 09:00 06/24/17 09:00 06/24/17 09:00 - Medications Medications: Current Medications Acetaminophen (Tylenol 325mg Tab) 650 mg PEG Q4 PRN PRN Reason: Pain, Mild (1-3) Acetaminophen (Tylenol 325mg Tab) 650 mg PEG Q4 PRN PRN Reason: Temp >100 Last Admin: 06/21/17 17:24 Dose: 650 mg Al Hydrox/Mg Hydrox/Simethicone (Maalox Plus 30 Ml) 30 ml PEG Q4 PRN PRN Reason: heartburn/indigestion Albuterol/Ipratropium (Duoneb 3 Mg/0.5 Mg (3 Ml) Ud) 3 ml INH RQID [facility] Last Admin: 06/24/17 11:44 Dose: Not Given Diphenhydramine HCl (Benadryl) 25 mg PEG Q8 [facility] Last Admin: 06/24/17 10:12 Dose: 25 mg Famotidine (Pepcid) 40 mg PEG DAILY [facility] Last Admin: 06/24/17 10:12 Dose: 40 mg Heparin Sodium (Porcine) (Heparin) 5,000 units SC Q12 EGOVANNA PRN Reason: Protocol Last Admin: 06/24/17 10:59 Dose: 5,000 units Meropenem 1 gm/ Sodium (Chloride) 100 mls @ 100 mls/hr IVPB Q8 [facility] PRN Reason: Protocol Last Admin: 06/24/17 10:11 Dose: Not Given Daptomycin 340 mg/ Sodium (Chloride) 100 mls @ 100 mls/hr IV DAILY@2100 [facility] Stop: 06/26/17 15:01 Last Admin: 06/23/17 21:37 Dose: 100 mls/hr Insulin Detemir (Levemir) 10 units SC Q12@1000,2200 [facility] Last Admin: 06/24/17 10:58 Dose: 10 units Insulin Human Lispro (Humalog) 0 units SC ACCU-CHECK [facility] PRN Reason: Protocol Last Admin: 06/24/17 10:58 Dose: 3 unit Magnesium Hydroxide (Milk Of Magnesia) 30 ml PEG DAILY PRN PRN Reason: Constipation Oxcarbazepine (Trileptal) 450 mg PEG HS [facility] Last Admin: 06/23/17 21:37 Dose: 450 mg Oxcarbazepine (Trileptal) 300 mg PEG DAILY [facility] Last Admin: 06/24/17 10:17 Dose: 300 mg Petrolatum (Desitin Maximum Strength Topical 40% Oint) 1 applic TOP Q8 PRN PRN Reason: skin excoriation Last Admin: 06/24/17 00:43 Dose: 1 applic Topiramate (Topamax) 100 mg PO Q12 [facility] Last Admin: 06/24/17 10:12 Dose: 100 mg - Labs Labs: - Additional Findings Additional findings: - Constitutional Appears: No Acute Distress, Agitated, Chronically Ill - Head Exam Head Exam: ATRAUMATIC - Eye Exam Eye Exam: EOMI - ENT Exam Additional comments: poor dentition dry oral mucosa - Neck Exam Neck exam: Positive for: Full Rom - Respiratory Exam Respiratory Exam: NORMAL BREATHING PATTERN Additional comments: No wheezing - Cardiovascular Exam Cardiovascular Exam: RRR, +S1, +S2 - GI/Abdominal Exam Additional comments: distended bot softer today + BS peg tube site with both pus and bloody discharge no guarding no rebound - Extremities Exam Additional comments: b/l arms edematous and erythematous generalized erythema few blisters on left forearm , 2 of the blisters are weeping b/l hand edema as well - Neurological Exam Additional comments: awake but has dementia skin- less generalized erythema on her abdomen and chest and legs Laboratory Results - last 72 hr 06/21/17 06/21/17 06/22/17 17:05 21:56 05:39 WBC RBC Hgb Hct MCV MCH MCHC RDW Plt Count PT INR Sodium Potassium Chloride Carbon Dioxide Anion Gap BUN Creatinine Est GFR ( Amer) Est GFR (Non-Af Amer) POC Glucose (mg/dL) 258 H 241 H 277 H Random Glucose Calcium Total Creatine Kinase 06/22/17 06/22/17 06/22/17 11:13 15:42 19:41 WBC RBC Hgb Hct MCV MCH MCHC RDW Plt Count PT INR Sodium Potassium Chloride Carbon Dioxide Anion Gap BUN Creatinine Est GFR ( Amer) Est GFR (Non-Af Amer) POC Glucose (mg/dL) 305 H 264 H Random Glucose Calcium Total Creatine Kinase 21 L 06/22/17 06/23/17 06/23/17 21:23 06:30 10:58 WBC RBC Hgb Hct MCV MCH MCHC RDW Plt Count PT INR Sodium Potassium Chloride Carbon Dioxide Anion Gap BUN Creatinine Est GFR ( Amer) Est GFR (Non-Af Amer) POC Glucose (mg/dL) 230 H 219 H 235 H Random Glucose Calcium Total Creatine Kinase 06/23/17 06/23/17 06/24/17 15:48 22:12 05:19 WBC RBC Hgb Hct MCV MCH MCHC RDW Plt Count PT INR Sodium Potassium Chloride Carbon Dioxide Anion Gap BUN Creatinine Est GFR ( Amer) Est GFR (Non-Af Amer) POC Glucose (mg/dL) 154 H 146 H 209 H Random Glucose Calcium Total Creatine Kinase 06/24/17 06/24/17 06/24/17 11:06 11:18 11:30 WBC 9.5 RBC 3.08 L Hgb 9.2 L Hct 28.6 L MCV 92.7 MCH 29.8 MCHC 32.2 L RDW 15.3 H Plt Count 124 L PT INR Sodium 152 H Potassium 4.0 Chloride 119 H Carbon Dioxide 19 L Anion Gap 18 BUN 19 H Creatinine 0.6 L Est GFR ( Amer) > 60 Est GFR (Non-Af Amer) > 60 POC Glucose (mg/dL) 242 H Random Glucose 245 H Calcium 7.9 L Total Creatine Kinase 06/24/17 06/24/17 11:30 15:39 WBC RBC Hgb Hct MCV MCH MCHC RDW Plt Count PT 13.5 H INR 1.2 Sodium Potassium Chloride Carbon Dioxide Anion Gap BUN Creatinine Est GFR ( Amer) Est GFR (Non-Af Amer) POC Glucose (mg/dL) 194 H Random Glucose Calcium Total Creatine Kinase Microbiology 06/20/17 06:19 Blood Blood Culture - Preliminary NO GROWTH AFTER 4 DAYS 06/21/17 18:38 Blood Blood Culture - Preliminary NO GROWTH AFTER 48 HOURS 06/21/17 18:28 Blood Blood Culture - Preliminary NO GROWTH AFTER 48 HOURS 06/20/17 15:10 Abdomen Gram Stain - Final 06/20/17 15:10 Abdomen Wound Culture - Final Providencia Stuartii Enterococcus Faecalis Assessment and Plan (1) Cellulitis, abdominal wall Status: Acute (2) Irritation around percutaneous endoscopic gastrostomy (PEG) tube site Status: Acute (3) Cough Status: Acute - Assessment and Plan (Free Text) Assessment: A/P- 71 year old female from [place] with dementia, CVA, seizure disorder, DM II, admitted with infected peg tube site. afebrile past 48 hours. minimal leukocytosis has resolved. pus and blood discharge from around peg tube site but surrounding cellulitis is less. blood cx- neg x 2 peg tube site wound cx- e.fecalis and proteus skin allergic reaction but incredibly difficult to discern what she is allergic to as pt. has multitude of drug allergies to every class of antibiotic also pt. has been getting benadryl pre- each abx treatment plan- so far has completed 4 days of IV meropenem amd IV daptomyicn. advise to hold all abx at this time. peg tube needs to be removed as site is all infected. Perhaps NGT for next few days until infection is improved. all above d/w who is pt's PMD at length.
[2017-06-25] MEDS: DiphenhydrAMINE 12.5 mg/5 ml LIQ UD (5 ml) PEG SCH ×3 (00:17→17:29)
--- NOTE | 2017-06-25 00:58 | PN ---
DAILY PROGRESS NOTE DATE: 06/24/2017 SUBJECTIVE: The patient is seen today 06/24/2017. She is not in any cardiopulmonary distress, but the patient has redness , blister formation in her right arm as well as generalized redness of all extremities. PHYSICAL EXAMINATION VITAL SIGNS: Blood pressure 147/80, temperature 99.2, respiratory rate 20 and pulse 78. HEENT: Poor oral hygiene. Pupils equal, reactive to light. Normal-appearing mucosa of the conjunctivae, oropharynx and nasal membrane mucosa. NECK: Supple. No JVD. No carotid bruit. No lymph node. No thyromegaly. CHEST AND LUNGS: Bilateral symmetrical expansion. Good air exchange. No rales. No rhonchi. CARDIOVASCULAR: PMI not localized. S1 and S2. No additional sounds. ABDOMEN: Normoactive bowel sounds. No tenderness. No organomegaly. No masses. EXTREMITIES: No cyanosis. No clubbing. No edema. 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 ASSESSMENT: 1. Infected wound around the gastric tube and anterior abdominal wall. 2. Cellulitis of the anterior abdominal wall. 3. Cerebrovascular accident, type 2 diabetes mellitus, hypertension and severe drug allergic reaction. PLAN We will give the patient Solu-Medrol 125 mg one dose. Continue Benadryl and stop all antibiotics and the patient is for change of gastric tube. Vikas Blair MD MTDD
[2017-06-25] MEDS: Albuterol-Ipratrop 3 mg / 0.5 (3 ml) UD INH SCH ×4 (07:56→19:03)
--- NOTE | 2017-06-25 09:00 | CP.PCM.PN ---
Subjective - Date & Time of Evaluation Date of Evaluation: 06/25/17 Time of Evaluation: 08:50 - Subjective Subjective: Patient remains confused. Followed for abdominal wall ceelulitis due to drainage from fistula from previous PEG Objective - Vital Signs/Intake and Output Vital Signs (last 24 hours): Temp Pulse Resp BP Pulse Ox 99.1 F 80 20 149/55 L 99 06/25/17 08:22 06/25/17 08:22 06/25/17 08:22 06/25/17 08:22 06/25/17 08:22 - Medications Medications: Current Medications Acetaminophen (Tylenol 325mg Tab) 650 mg PEG Q4 PRN PRN Reason: Pain, Mild (1-3) Acetaminophen (Tylenol 325mg Tab) 650 mg PEG Q4 PRN PRN Reason: Temp >100 Last Admin: 06/21/17 17:24 Dose: 650 mg Al Hydrox/Mg Hydrox/Simethicone (Maalox Plus 30 Ml) 30 ml PEG Q4 PRN PRN Reason: heartburn/indigestion Albuterol/Ipratropium (Duoneb 3 Mg/0.5 Mg (3 Ml) Ud) 3 ml INH RQID [facility] Last Admin: 06/25/17 07:56 Dose: 3 ml Diphenhydramine HCl (Benadryl) 25 mg PEG Q8 [facility] Last Admin: 06/25/17 00:17 Dose: 25 mg Famotidine (Pepcid) 40 mg PEG DAILY [facility] Last Admin: 06/24/17 10:12 Dose: 40 mg Heparin Sodium (Porcine) (Heparin) 5,000 units SC Q12 [facility] PRN Reason: Protocol Last Admin: 06/24/17 20:56 Dose: 5,000 units Meropenem 1 gm/ Sodium (Chloride) 100 mls @ 100 mls/hr IVPB Q8 [facility] PRN Reason: Protocol Last Admin: 06/24/17 10:11 Dose: Not Given Daptomycin 340 mg/ Sodium (Chloride) 100 mls @ 100 mls/hr IV DAILY@2100 [facility] Stop: 06/26/17 15:01 Last Admin: 06/23/17 21:37 Dose: 100 mls/hr Insulin Detemir (Levemir) 10 units SC Q12@1000,2200 [facility] Last Admin: 06/24/17 21:04 Dose: 10 units Insulin Human Lispro (Humalog) 0 units SC ACCU-CHECK [facility] PRN Reason: Protocol Last Admin: 06/24/17 21:59 Dose: 2 unit Magnesium Hydroxide (Milk Of Magnesia) 30 ml PEG DAILY PRN PRN Reason: Constipation Oxcarbazepine (Trileptal) 450 mg PEG HS [facility] Last Admin: 06/24/17 21:03 Dose: 450 mg Oxcarbazepine (Trileptal) 300 mg PEG DAILY [facility] Last Admin: 06/24/17 10:17 Dose: 300 mg Petrolatum (Desitin Maximum Strength Topical 40% Oint) 1 applic TOP Q8 PRN PRN Reason: skin excoriation Last Admin: 06/24/17 00:43 Dose: 1 applic Topiramate (Topamax) 100 mg PO Q12 [facility] Last Admin: 06/24/17 20:57 Dose: 100 mg - Labs Labs: 06/24/17 11:30 06/24/17 11:18 PT 13.5 Seconds (9.8-13.1) H 06/24/17 11:30 INR 1.2 (0.9-1.2) 06/24/17 11:30 - Head Exam Head Exam: ATRAUMATIC - Eye Exam Eye Exam: Normal appearance - ENT Exam ENT Exam: Mucous Membranes Moist - Respiratory Exam Respiratory Exam: Clear to Ausculation Bilateral - Cardiovascular Exam Cardiovascular Exam: REGULAR RHYTHM, +S1, +S2 - GI/Abdominal Exam GI & Abdominal Exam: Soft, Tenderness Additional comments: Abdominal wall cellulitis and leakage persist. Assessment and Plan (1) Cellulitis, abdominal wall Assessment & Plan: Persistent gastrocutaneous fistula. New dressing applied using compression telfa dressing. Status: Acute
[2017-06-25] MEDS: OXcarbazepine 300 mg/5 ml Syringe PEG SCH ×2 (09:16→22:57)
[2017-06-25] MEDS: Insulin Detemir 100 Units/ml Inj SC SCH ×2 (09:17→22:56)
[2017-06-25] MEDS: Famotidine 40 MG/5 ML PEG SCH (09:17)
[2017-06-25] MEDS: Insulin Lispro (humaLOG) 100 Units/ml Inj SC SCH ×4 (09:18→22:55)
[2017-06-25 10:41] LABS: HEMOGLOBIN 9.1 g/dL (12.0-16.0); MEAN CELL VOLUME 95.4 fl (81.0-99.0); MEAN CORPUSCULAR HEMOGLOBIN 30.8 pg (27.0-31.0); MEAN CORPUSCULAR HGB CONC 32.2 g/dL (33.0-37.0); RBC 2.96 Mil/uL (3.80-5.20); RED CELL DISTRIBUTION WIDTH 15.1 % (11.5-14.5)
[2017-06-25 10:57] LABS: ALB/GLOB RATIO 0.8 (1.0-2.1); ALBUMIN 3.1 g/dL (3.5-5.0); ALT/SGPT 46 U/L (9-52); AST/SGOT 51 U/L (14-36); BLOOD UREA NITROGEN 23 mg/dl (7-17); CALCIUM 8.3 mg/dL (8.4-10.2); GFR AFRICAN-AMERICAN > 60; GFR NON-AFRICAN AMERICAN > 60
[2017-06-25] MEDS: Silver Sulfadiazine 1% Cream (20 gm) TOP SCH ×2 (12:11→17:31)
--- NOTE | 2017-06-25 15:24 | CP.PCM.PN ---
Subjective - Date & Time of Evaluation Date of Evaluation: 06/25/17 Time of Evaluation: 12:00 - Subjective Subjective: ID note- pt. seen and examined today. no new events over night. No IV access as per nurse, advised to avoid Picc line as pt. already has edematous arms b/l. Objective - Vital Signs/Intake and Output Vital Signs (last 24 hours): Temp Pulse Resp BP Pulse Ox 99.1 F 80 20 149/55 L 99 06/25/17 08:22 06/25/17 08:22 06/25/17 08:22 06/25/17 08:22 06/25/17 08:22 - Medications Medications: Current Medications Acetaminophen (Tylenol 325mg Tab) 650 mg PEG Q4 PRN PRN Reason: Pain, Mild (1-3) Acetaminophen (Tylenol 325mg Tab) 650 mg PEG Q4 PRN PRN Reason: Temp >100 Last Admin: 06/21/17 17:24 Dose: 650 mg Al Hydrox/Mg Hydrox/Simethicone (Maalox Plus 30 Ml) 30 ml PEG Q4 PRN PRN Reason: heartburn/indigestion Albuterol/Ipratropium (Duoneb 3 Mg/0.5 Mg (3 Ml) Ud) 3 ml INH RQID [facility] Last Admin: 06/25/17 11:57 Dose: 3 ml Diphenhydramine HCl (Benadryl) 25 mg PEG Q8 [facility] Last Admin: 06/25/17 09:17 Dose: 25 mg Famotidine (Pepcid) 40 mg PEG DAILY [facility] Last Admin: 06/25/17 09:17 Dose: 40 mg Heparin Sodium (Porcine) (Heparin) 5,000 units SC Q12 GEOVANNA PRN Reason: Protocol Last Admin: 06/25/17 09:17 Dose: 5,000 units Meropenem 1 gm/ Sodium (Chloride) 100 mls @ 100 mls/hr IVPB Q8 [facility] PRN Reason: Protocol Last Admin: 06/24/17 10:11 Dose: Not Given Daptomycin 340 mg/ Sodium (Chloride) 100 mls @ 100 mls/hr IV DAILY@2100 [facility] Stop: 06/26/17 15:01 Last Admin: 06/23/17 21:37 Dose: 100 mls/hr Insulin Detemir (Levemir) 10 units SC Q12@1000,2200 [facility] Last Admin: 06/25/17 09:17 Dose: 10 units Insulin Human Lispro (Humalog) 0 units SC ACCU-CHECK [facility] PRN Reason: Protocol Last Admin: 06/25/17 12:11 Dose: 3 unit Magnesium Hydroxide (Milk Of Magnesia) 30 ml PEG DAILY PRN PRN Reason: Constipation Oxcarbazepine (Trileptal) 450 mg PEG HS [facility] Last Admin: 06/24/17 21:03 Dose: 450 mg Oxcarbazepine (Trileptal) 300 mg PEG DAILY [facility] Last Admin: 06/25/17 09:16 Dose: 300 mg Petrolatum (Desitin Maximum Strength Topical 40% Oint) 1 applic TOP Q8 PRN PRN Reason: skin excoriation Last Admin: 06/24/17 00:43 Dose: 1 applic Silver Sulfadiazine (Silvadene 1% 20 Gm) 1 ea TOP BID [facility] Last Admin: 06/25/17 12:11 Dose: 1 applic Topiramate (Topamax) 100 mg PO Q12 [facility] Last Admin: 06/25/17 09:17 Dose: 100 mg - Labs Labs: - Additional Findings Additional findings: - Constitutional Appears: No Acute Distress, Agitated, Chronically Ill - Head Exam Head Exam: ATRAUMATIC - Eye Exam Eye Exam: EOMI - ENT Exam Additional comments: poor dentition dry oral mucosa - Neck Exam Neck exam: Positive for: Full Rom - Respiratory Exam Respiratory Exam: NORMAL BREATHING PATTERN Additional comments: No wheezing - Cardiovascular Exam Cardiovascular Exam: RRR, +S1, +S2 - GI/Abdominal Exam Additional comments: distended bot softer today + BS peg tube site with both pus and bloody discharge no guarding no rebound - Extremities Exam Additional comments: b/l arms edematous and erythematous , slightly less than yesterday generalized erythema few blisters on left forearm , 2 of the blisters are weeping b/l hand edema as well - Neurological Exam Additional comments: awake but has dementia Laboratory Results - last 72 hr 06/22/17 06/23/17 06/23/17 21:23 06:30 10:58 WBC RBC Hgb Hct MCV MCH MCHC RDW Plt Count PT INR Sodium Potassium Chloride Carbon Dioxide Anion Gap BUN Creatinine Est GFR ( Amer) Est GFR (Non-Af Amer) POC Glucose (mg/dL) 230 H 219 H 235 H Random Glucose Calcium Total Bilirubin AST ALT Alkaline Phosphatase Total Protein Albumin Globulin Albumin/Globulin Ratio 06/23/17 06/23/17 06/24/17 15:48 22:12 05:19 WBC RBC Hgb Hct MCV MCH MCHC RDW Plt Count PT INR Sodium Potassium Chloride Carbon Dioxide Anion Gap BUN Creatinine Est GFR ( Amer) Est GFR (Non-Af Amer) POC Glucose (mg/dL) 154 H 146 H 209 H Random Glucose Calcium Total Bilirubin AST ALT Alkaline Phosphatase Total Protein Albumin Globulin Albumin/Globulin Ratio 06/24/17 06/24/17 06/24/17 11:06 11:18 11:30 WBC 9.5 RBC 3.08 L Hgb 9.2 L Hct 28.6 L MCV 92.7 MCH 29.8 MCHC 32.2 L RDW 15.3 H Plt Count 124 L PT INR Sodium 152 H Potassium 4.0 Chloride 119 H Carbon Dioxide 19 L Anion Gap 18 BUN 19 H Creatinine 0.6 L Est GFR ( Amer) > 60 Est GFR (Non-Af Amer) > 60 POC Glucose (mg/dL) 242 H Random Glucose 245 H Calcium 7.9 L Total Bilirubin AST ALT Alkaline Phosphatase Total Protein Albumin Globulin Albumin/Globulin Ratio 06/24/17 06/24/17 06/24/17 11:30 15:39 21:23 WBC RBC Hgb Hct MCV MCH MCHC RDW Plt Count PT 13.5 H INR 1.2 Sodium Potassium Chloride Carbon Dioxide Anion Gap BUN Creatinine Est GFR ( Amer) Est GFR (Non-Af Amer) POC Glucose (mg/dL) 194 H 309 H Random Glucose Calcium Total Bilirubin AST ALT Alkaline Phosphatase Total Protein Albumin Globulin Albumin/Globulin Ratio 06/25/17 06/25/17 06/25/17 05:22 10:18 10:18 WBC 9.0 RBC 2.96 L Hgb 9.1 L Hct 28.2 L MCV 95.4 D MCH 30.8 MCHC 32.2 L RDW 15.1 H Plt Count 86 L D PT INR Sodium 154 H Potassium 4.5 Chloride 117 H Carbon Dioxide 24 Anion Gap 18 BUN 23 H Creatinine 0.6 L Est GFR ( Amer) > 60 Est GFR (Non-Af Amer) > 60 POC Glucose (mg/dL) 216 H Random Glucose 174 H Calcium 8.3 L Total Bilirubin 0.5 AST 51 H D ALT 46 Alkaline Phosphatase 88 Total Protein 7.2 Albumin 3.1 L Globulin 4.0 H Albumin/Globulin Ratio 0.8 L 06/25/17 06/25/17 10:49 15:29 WBC RBC Hgb Hct MCV MCH MCHC RDW Plt Count PT INR Sodium Potassium Chloride Carbon Dioxide Anion Gap BUN Creatinine Est GFR ( Amer) Est GFR (Non-Af Amer) POC Glucose (mg/dL) 204 H 193 H Random Glucose Calcium Total Bilirubin AST ALT Alkaline Phosphatase Total Protein Albumin Globulin Albumin/Globulin Ratio Microbiology 06/21/17 18:38 Blood Blood Culture - Preliminary NO GROWTH AFTER 4 DAYS 06/21/17 18:28 Blood Blood Culture - Preliminary NO GROWTH AFTER 4 DAYS 06/20/17 06:19 Blood Blood Culture - Final NO GROWTH AFTER 5 DAYS 06/20/17 15:10 Abdomen Gram Stain - Final 06/20/17 15:10 Abdomen Wound Culture - Final Providencia Stuartii Enterococcus Faecalis Assessment and Plan (1) Cellulitis, abdominal wall Status: Acute (2) Irritation around percutaneous endoscopic gastrostomy (PEG) tube site Status: Acute (3) Cough Status: Acute - Assessment and Plan (Free Text) Assessment: A/P- 71 year old female from [place] with dementia, CVA, seizure disorder, DM II, admitted with infected peg tube site. afebrile past 72 hours. minimal leukocytosis has resolved. pus and blood discharge from around peg tube site but surrounding cellulitis is less. blood cx- neg x 2 peg tube site wound cx- e.fecalis and proteus skin allergic reaction but incredibly difficult to discern what she is allergic to as pt. has multitude of drug allergies to every class of antibiotic also pt. has been getting benadryl pre- each abx treatment plan- completed 4 days of IV meropenem amd IV daptomyicn. systemic antibiotics are on hold. as per GI Endoscopy with banding for closure of gastrocutaneous fistula tomorrow. would advise if no IVL to have central line placed for now if needed for secure line for GI procedure tomm since pt. has edematous arms with blisters avoid picc line at this time. local wound care for peg tube site as per wound nurse.
--- NOTE | 2017-06-25 20:21 | PN ---
DATE: 06/25/2017 DAILY PROGRESS NOTE SUBJECTIVE: The patient is seen today 06/25/2017. She still has redness and blisters on both of her arms. No IV access is available. The patient could not have the G-tube done or endoscopy due to lack of IV access. PHYSICAL EXAMINATION VITAL SIGNS: Blood pressure 163/64, temperature 99.5, respiratory rate 18 and pulse 81. HEENT: Pupils are equal, reactive to light. Normal-appearing mucosa of the conjunctivae, oropharynx and nasal membrane mucosa. NECK: Supple. No JVD. No carotid bruit. No lymph node. No thyromegaly. CHEST AND LUNGS: Bilateral symmetrical expansion. Good air exchange. No rales. No rhonchi. CARDIOVASCULAR: PMI not localized. S1 and S2. No additional sounds. ABDOMEN: Gastric tube is in place with abdominal wound above the gastric tube and redness of the abdominal wall. 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 ASSESSMENT: Infected wound adjacent to the gastric tube site, cellulitis of the anterior abdominal wall, type 2 diabetes mellitus, and hypertension. PLAN The patient is for central line insertion. Followed by gastric tube change as per GI. All the antibiotics are stopped at this point due to severe allergic reaction. Continue Accu-Cheks with insulin coverage. Vikas Blair MD
--- NOTE | 2017-06-25 20:32 | PCM.PROC ---
Procedures Attestation:: I certify that I have explained the specified Operation(s) or Procedure(s), risks, benefits and reasonable alternatives to the Patient and/or other person responsible. The opportunity was given to ask questions and all questions answered - Central Line Placement Left Internal Jugular Aseptic technique was employed throughout the procedure: Hand Hygiene done prior to procedure, Full sterile barriers (mask, hair cover, sterile gown, sterile gloves), Full body sterile drape, Chloraprep Antiseptic: 30 second prep for IJ or SC sites CVP Time Out Performed: Yes Pt. Placed on Pulse Ox Monitor: Yes Central Line Prep: Chlorhexidine-Alcohol Combination Local Anesthesia Used: Lidocaine 1% Amount of Anesthesia Used (mls): 5 Ultrasound Used for Placement: Yes Central Line Lumen Inserted: triple Central Line Length: 20 cm Post Procedure: Sutured in Place, Good Blood Return, All Ports Aspirated, Flushed, Capped, Sterile Dressing Applied Secured by: Securement device Post procedure dressing: Clear vapor permeable, Chlorhexidine disc (Biopatch) Post Procedure X-Ray: Yes Patient Tolerated Procedure: Well
[2017-06-26] MEDS: DiphenhydrAMINE 12.5 mg/5 ml LIQ UD (5 ml) PEG SCH ×3 (00:48→16:20)
[2017-06-26 06:42] LABS: HEMOGLOBIN 8.8 g/dL (12.0-16.0); MEAN CELL VOLUME 93.4 fl (81.0-99.0); MEAN CORPUSCULAR HEMOGLOBIN 30.2 pg (27.0-31.0); MEAN CORPUSCULAR HGB CONC 32.3 g/dL (33.0-37.0); RBC 2.92 Mil/uL (3.80-5.20); WHITE BLOOD COUNT 9.3 K/uL (4.8-10.8)
--- NOTE | 2017-06-26 07:25 | RAD ---
HISTORY: s/p central line COMPARISON: Portable chest 06/20/2017. FINDINGS: The center venous lines in place by an apparent left internal jugular approach with the tip terminating at the brachycephalic vein junction with the superior vena cava. LUNGS: Marked right hemidiaphragm elevation again evident with stable limited atelectasis favored at the medial right base over infiltrate. Left lung remains clear. PLEURA: No significant pleural effusion identified, no pneumothorax apparent. CARDIOVASCULAR: Stable cardiomediastinal silhouette exclusive of the central venous line noted above. No definite pulmonary vascular derangement. OSSEOUS STRUCTURES: No significant abnormalities. VISUALIZED UPPER ABDOMEN: Surgical clips again noted right upper quadrant abdomen. OTHER FINDINGS: None. IMPRESSION: Interval left central venous line placed as described above. No pneumothorax bilaterally. Stable elevated right hemidiaphragm with related medial right abort yes basilar atelectasis.
[2017-06-26 07:34] LABS: ALB/GLOB RATIO 0.8 (1.0-2.1); ALBUMIN 2.9 g/dL (3.5-5.0); GFR AFRICAN-AMERICAN > 60; GFR NON-AFRICAN AMERICAN > 60
[2017-06-26] MEDS: Albuterol-Ipratrop 3 mg / 0.5 (3 ml) UD INH SCH ×4 (07:39→19:13)
[2017-06-26] MEDS ORDERED: Lactated Ringer's 500 ML IV ONE (07:59)
[2017-06-26] MEDS: Insulin Lispro (humaLOG) 100 Units/ml Inj SC SCH ×4 (08:24→22:15)
[2017-06-26] MEDS: OXcarbazepine 300 mg/5 ml Syringe PEG SCH ×2 (08:25→22:14)
[2017-06-26] MEDS: Silver Sulfadiazine 1% Cream (20 gm) TOP SCH ×2 (08:25→16:21)
[2017-06-26] MEDS: Famotidine 40 MG/5 ML PEG SCH (08:25)
[2017-06-26] MEDS ORDERED: Propofol 10 mg/ml Inj (20 ML) ONE (08:55)
[2017-06-26] MEDS ORDERED: Etomidate 20 mg/10ml Inj IV ONE (08:55)
[2017-06-26] MEDS: Insulin Detemir 100 Units/ml Inj SC SCH ×2 (12:24→22:15)
--- NOTE | 2017-06-27 00:12 | PN ---
DAILY PROGRESS NOTE DATE: 06/26/2017 SUBJECTIVE: The patient is seen today 06/26/2017. She is not in any cardiopulmonary distress and decreased redness and that was there as the patient was taking the antibiotics. she went to the endoscopy suite and wound cannot be closed. OBJECTIVE: VITAL SIGNS: Blood pressure 143/64, temperature 97.7, respiratory rate 18, and pulse 80. HEENT: Pupils equal and reactive to light. Normal appearing mucosa of the conjunctivae, oropharynx, and nasal membrane mucosa. NECK: Supple. No JVD. No carotid bruit. No lymph node. No thyromegaly. CHEST AND LUNGS: Bilateral symmetrical expansion. Good air exchange. No rales. No rhonchi. CARDIOVASCULAR: PMI not localized, S1 and S2. No additional sounds. ABDOMEN: Normoactive bowel sounds. No tenderness. No organomegaly. No masses. The patient has a wound above the gastric tube with less discharge. EXTREMITIES: No cyanosis. No clubbing. No edema. CENTRAL NERVOUS SYSTEM: Awake, but confused and aphasic and she has right-sided weakness. ASSESSMENT: 1. Abdominal wall cellulitis, which is resolving. 2. Severe allergic reactions secondary to the antibiotics. 3. Type 2 diabetes mellitus. 4. Cerebrovascular accident. 5. Hypertension. PLAN: Continue current medications and resume feeding and if the patient tolerates, we will discharge her back to snf to continue the current medications and to give her the local wound treatment. Vikas Blair MD
[2017-06-27] MEDS: DiphenhydrAMINE 12.5 mg/5 ml LIQ UD (5 ml) PEG SCH ×3 (00:46→17:40)
[2017-06-27] MEDS: Insulin Lispro (humaLOG) 100 Units/ml Inj SC SCH ×4 (07:34→22:29)
[2017-06-27] MEDS: Albuterol-Ipratrop 3 mg / 0.5 (3 ml) UD INH SCH ×4 (07:38→19:11)
--- NOTE | 2017-06-27 08:40 | CP.PCM.PN ---
Subjective - Date & Time of Evaluation Date of Evaluation: 06/27/17 Time of Evaluation: 08:37 - Subjective Subjective: patient in o acute distress Objective - Vital Signs/Intake and Output Vital Signs (last 24 hours): Temp Pulse Resp BP Pulse Ox 97.4 F L 75 20 149/73 97 06/27/17 08:21 06/27/17 08:21 06/27/17 08:21 06/27/17 08:21 06/27/17 08:21 - Medications Medications: Current Medications Acetaminophen (Tylenol 325mg Tab) 650 mg PEG Q4 PRN PRN Reason: Pain, Mild (1-3) Acetaminophen (Tylenol 325mg Tab) 650 mg PEG Q4 PRN PRN Reason: Temp >100 Last Admin: 06/21/17 17:24 Dose: 650 mg Al Hydrox/Mg Hydrox/Simethicone (Maalox Plus 30 Ml) 30 ml PEG Q4 PRN PRN Reason: heartburn/indigestion Albuterol/Ipratropium (Duoneb 3 Mg/0.5 Mg (3 Ml) Ud) 3 ml INH RQID [facility] Last Admin: 06/27/17 07:38 Dose: 3 ml Diphenhydramine HCl (Benadryl) 25 mg PEG Q8 [facility] Last Admin: 06/27/17 00:46 Dose: 25 mg Famotidine (Pepcid) 40 mg PEG DAILY [facility] Last Admin: 06/26/17 08:25 Dose: Not Given Heparin Sodium (Porcine) (Heparin) 5,000 units SC Q12 [facility] PRN Reason: Protocol Last Admin: 06/25/17 09:17 Dose: 5,000 units Meropenem 1 gm/ Sodium (Chloride) 100 mls @ 100 mls/hr IVPB Q8 [facility] PRN Reason: Protocol Last Admin: 06/24/17 10:11 Dose: Not Given Insulin Detemir (Levemir) 10 units SC Q12@1000,2200 [facility] Last Admin: 06/26/17 22:15 Dose: 10 units Insulin Human Lispro (Humalog) 0 units SC ACCU-CHECK [facility] PRN Reason: Protocol Last Admin: 06/27/17 07:34 Dose: 6 unit Magnesium Hydroxide (Milk Of Magnesia) 30 ml PEG DAILY PRN PRN Reason: Constipation Oxcarbazepine (Trileptal) 450 mg PEG HS [facility] Last Admin: 06/26/17 22:14 Dose: 450 mg Oxcarbazepine (Trileptal) 300 mg PEG DAILY [facility] Last Admin: 06/26/17 08:25 Dose: Not Given Petrolatum (Desitin Maximum Strength Topical 40% Oint) 1 applic TOP Q8 PRN PRN Reason: skin excoriation Last Admin: 06/24/17 00:43 Dose: 1 applic Silver Sulfadiazine (Silvadene 1% 20 Gm) 1 ea TOP BID [facility] Last Admin: 06/26/17 16:21 Dose: 1 applic Topiramate (Topamax) 100 mg PO Q12 [facility] Last Admin: 06/26/17 22:13 Dose: 100 mg - Labs Labs: 06/26/17 05:35 06/26/17 05:35 PT 13.5 Seconds (9.8-13.1) H 06/24/17 11:30 INR 1.2 (0.9-1.2) 06/24/17 11:30 - Head Exam Head Exam: ATRAUMATIC - Eye Exam Eye Exam: Normal appearance - ENT Exam ENT Exam: Mucous Membranes Moist - Neck Exam Neck Exam: Full ROM - Cardiovascular Exam Cardiovascular Exam: REGULAR RHYTHM - GI/Abdominal Exam GI & Abdominal Exam: Soft Additional comments: Still with exudate around area of old gastrostomy . Abdominal wall induration improved. Continue with compression telfa dressing on old PEG site and absorbent gauze around current PEG Assessment and Plan (1) Cellulitis, abdominal wall Status: Acute
[2017-06-27] MEDS: Famotidine 40 MG/5 ML PEG SCH (09:02)
[2017-06-27] MEDS: OXcarbazepine 300 mg/5 ml Syringe PEG SCH ×2 (09:02→21:39)
[2017-06-27] MEDS: Silver Sulfadiazine 1% Cream (20 gm) TOP SCH ×2 (09:03→17:06)
[2017-06-27] MEDS: Insulin Detemir 100 Units/ml Inj SC SCH ×2 (10:30→22:31)
--- NOTE | 2017-06-27 13:14 | CP.PCM.PN ---
Subjective - Date & Time of Evaluation Date of Evaluation: 06/27/17 Time of Evaluation: 13:14 - Subjective Subjective: ID note- Pt. seen and examined today with the nurse at bedside. as per the nurse the fistula could not be closed endoscopically as per GI. still has old peg tube in place. Objective - Vital Signs/Intake and Output Vital Signs (last 24 hours): Temp Pulse Resp BP Pulse Ox 97.4 F L 75 20 149/73 97 06/27/17 09:00 06/27/17 09:00 06/27/17 09:00 06/27/17 09:00 06/27/17 09:00 - Medications Medications: Current Medications Acetaminophen (Tylenol 325mg Tab) 650 mg PEG Q4 PRN PRN Reason: Pain, Mild (1-3) Acetaminophen (Tylenol 325mg Tab) 650 mg PEG Q4 PRN PRN Reason: Temp >100 Last Admin: 06/21/17 17:24 Dose: 650 mg Al Hydrox/Mg Hydrox/Simethicone (Maalox Plus 30 Ml) 30 ml PEG Q4 PRN PRN Reason: heartburn/indigestion Albuterol/Ipratropium (Duoneb 3 Mg/0.5 Mg (3 Ml) Ud) 3 ml INH RQID [facility] Last Admin: 06/27/17 11:45 Dose: 3 ml Diphenhydramine HCl (Benadryl) 25 mg PEG Q8 [facility] Last Admin: 06/27/17 09:02 Dose: 25 mg Famotidine (Pepcid) 40 mg PEG DAILY [facility] Last Admin: 06/27/17 09:02 Dose: 40 mg Heparin Sodium (Porcine) (Heparin) 5,000 units SC Q12 [facility] PRN Reason: Protocol Last Admin: 06/25/17 09:17 Dose: 5,000 units Meropenem 1 gm/ Sodium (Chloride) 100 mls @ 100 mls/hr IVPB Q8 [facility] PRN Reason: Protocol Last Admin: 06/24/17 10:11 Dose: Not Given Insulin Detemir (Levemir) 10 units SC Q12@1000,2200 [facility] Last Admin: 06/27/17 10:30 Dose: 10 units Insulin Human Lispro (Humalog) 0 units SC ACCU-CHECK [facility] PRN Reason: Protocol Last Admin: 06/27/17 11:41 Dose: 4 unit Magnesium Hydroxide (Milk Of Magnesia) 30 ml PEG DAILY PRN PRN Reason: Constipation Oxcarbazepine (Trileptal) 450 mg PEG HS [facility] Last Admin: 06/26/17 22:14 Dose: 450 mg Oxcarbazepine (Trileptal) 300 mg PEG DAILY [facility] Last Admin: 06/27/17 09:02 Dose: 300 mg Petrolatum (Desitin Maximum Strength Topical 40% Oint) 1 applic TOP Q8 PRN PRN Reason: skin excoriation Last Admin: 06/24/17 00:43 Dose: 1 applic Silver Sulfadiazine (Silvadene 1% 20 Gm) 1 ea TOP BID [facility] Last Admin: 06/27/17 09:03 Dose: 1 applic Topiramate (Topamax) 100 mg PO Q12 [facility] Last Admin: 06/27/17 09:02 Dose: 100 mg - Labs Labs: - Additional Findings Additional findings: - Constitutional Appears: No Acute Distress, Agitated, Chronically Ill - Head Exam Head Exam: ATRAUMATIC - Eye Exam Eye Exam: EOMI - ENT Exam Additional comments: poor dentition dry oral mucosa - Neck Exam Neck exam: Positive for: Full Rom - Respiratory Exam Respiratory Exam: NORMAL BREATHING PATTERN Additional comments: No wheezing - Cardiovascular Exam Cardiovascular Exam: RRR, +S1, +S2 - GI/Abdominal Exam Additional comments: less distended and softer today + BS peg tube site with slight area of irritation much less than before cellulitis is much improved the fistula site still open and drianing some clear fluid , no longer thick and pustular no guarding no rebound - Extremities Exam Additional comments: erythema and edema in b/l arms has resolve for the most part only right hand remains edematous blisters on right arm have almost completely resolved - Neurological Exam Additional comments: awake but has dementia Laboratory Results - last 72 hr 06/24/17 06/24/17 06/25/17 15:39 21:23 05:22 WBC RBC Hgb Hct MCV MCH MCHC RDW Plt Count Sodium Potassium Chloride Carbon Dioxide Anion Gap BUN Creatinine Est GFR ( Amer) Est GFR (Non-Af Amer) POC Glucose (mg/dL) 194 H 309 H 216 H Random Glucose Calcium Total Bilirubin AST ALT Alkaline Phosphatase Total Protein Albumin Globulin Albumin/Globulin Ratio 06/25/17 06/25/17 06/25/17 10:18 10:18 10:49 WBC 9.0 RBC 2.96 L Hgb 9.1 L Hct 28.2 L MCV 95.4 D MCH 30.8 MCHC 32.2 L RDW 15.1 H Plt Count 86 L D Sodium 154 H Potassium 4.5 Chloride 117 H Carbon Dioxide 24 Anion Gap 18 BUN 23 H Creatinine 0.6 L Est GFR ( Amer) > 60 Est GFR (Non-Af Amer) > 60 POC Glucose (mg/dL) 204 H Random Glucose 174 H Calcium 8.3 L Total Bilirubin 0.5 AST 51 H D ALT 46 Alkaline Phosphatase 88 Total Protein 7.2 Albumin 3.1 L Globulin 4.0 H Albumin/Globulin Ratio 0.8 L 06/25/17 06/25/17 06/26/17 15:29 21:14 05:35 WBC 9.3 RBC 2.92 L Hgb 8.8 L Hct 27.3 L MCV 93.4 D MCH 30.2 MCHC 32.3 L RDW 15.0 H Plt Count 125 L D Sodium Potassium Chloride Carbon Dioxide Anion Gap BUN Creatinine Est GFR ( Amer) Est GFR (Non-Af Amer) POC Glucose (mg/dL) 193 H 155 H Random Glucose Calcium Total Bilirubin AST ALT Alkaline Phosphatase Total Protein Albumin Globulin Albumin/Globulin Ratio 06/26/17 06/26/17 06/26/17 05:35 05:35 11:41 WBC RBC Hgb Hct MCV MCH MCHC RDW Plt Count Sodium 156 H Potassium 3.9 Chloride 120 H Carbon Dioxide 24 Anion Gap 16 BUN 17 Creatinine 0.7 Est GFR ( Amer) > 60 Est GFR (Non-Af Amer) > 60 POC Glucose (mg/dL) 136 H 162 H Random Glucose 142 H Calcium 8.5 Total Bilirubin 0.3 AST 42 H ALT 47 Alkaline Phosphatase 83 Total Protein 6.8 Albumin 2.9 L Globulin 3.8 Albumin/Globulin Ratio 0.8 L 06/26/17 06/26/17 06/27/17 15:29 21:58 05:12 WBC RBC Hgb Hct MCV MCH MCHC RDW Plt Count Sodium Potassium Chloride Carbon Dioxide Anion Gap BUN Creatinine Est GFR ( Amer) Est GFR (Non-Af Amer) POC Glucose (mg/dL) 261 H 235 H 321 H Random Glucose Calcium Total Bilirubin AST ALT Alkaline Phosphatase Total Protein Albumin Globulin Albumin/Globulin Ratio 06/27/17 11:17 WBC RBC Hgb Hct MCV MCH MCHC RDW Plt Count Sodium Potassium Chloride Carbon Dioxide Anion Gap BUN Creatinine Est GFR ( Amer) Est GFR (Non-Af Amer) POC Glucose (mg/dL) 275 H Random Glucose Calcium Total Bilirubin AST ALT Alkaline Phosphatase Total Protein Albumin Globulin Albumin/Globulin Ratio Microbiology 06/21/17 18:38 Blood Blood Culture - Final NO GROWTH AFTER 5 DAYS 06/21/17 18:38 Blood Gram Stain - Final TEST NOT PERFORMED 06/21/17 18:28 Blood Blood Culture - Final NO GROWTH AFTER 5 DAYS 06/21/17 18:28 Blood Gram Stain - Final TEST NOT PERFORMED 06/20/17 06:19 Blood Blood Culture - Final NO GROWTH AFTER 5 DAYS 06/20/17 15:10 Abdomen Gram Stain - Final 06/20/17 15:10 Abdomen Wound Culture - Final Providencia Stuartii Enterococcus Faecalis Assessment and Plan (1) Cellulitis, abdominal wall Status: Acute (2) Irritation around percutaneous endoscopic gastrostomy (PEG) tube site Status: Acute (3) Cough Status: Acute - Assessment and Plan (Free Text) Assessment: A/P- 71 year [place] with dementia, CVA, seizure disorder, DM II, admitted with infected peg tube site. afebrile past 5 days. minimal leukocytosis has resolved. gastrocutaneous fistula remains open but much less drainage and mostly clear fluid blood cx- neg x 2 peg tube site wound cx- e.fecalis and proteus skin allergic reaction almost entirely resolved. plan- completed 4 days of IV meropenem amd IV daptomyicn. systemic antibiotics are on hold. local wound care for peg tube site as per wound nurse as patient has multiple very strong allergic skin reactions and since she is afebrile with normal wbc count. patient would need to have gastrocutaneous fistula closed if possible as patient is at constant risk for site cellulitis secondary to fluid drainage from the fistula. all above d/w at length.
[2017-06-27 16:39] LABS: ALT/SGPT 44 U/L (9-52); AST/SGOT 27 U/L (14-36); BLOOD UREA NITROGEN 18 mg/dl (7-17); CALCIUM 8.7 mg/dL (8.4-10.2)
[2017-06-28] MEDS: DiphenhydrAMINE 12.5 mg/5 ml LIQ UD (5 ml) PEG SCH ×3 (01:38→16:38)
[2017-06-28] MEDS: Insulin Lispro (humaLOG) 100 Units/ml Inj SC SCH ×4 (06:49→22:29)
[2017-06-28] MEDS ORDERED: Chlorhexidine Gluconate 1 APPL/PKT TP ONE (07:23)
[2017-06-28] MEDS: Albuterol-Ipratrop 3 mg / 0.5 (3 ml) UD INH SCH ×4 (07:38→19:53)
[2017-06-28 07:59] LABS: ABG ALLEN TEST YES; ARTERIAL BLOOD GAS HCO3 25.1 mmol/L (21-28); ARTERIAL BLOOD GAS O2 SAT 93.8 % (95-98); ARTERIAL BLOOD GAS PCO2 37 mm/Hg (35-45); ARTERIAL BLOOD GAS PH 7.43 (7.35-7.45); ARTERIAL BLOOD GAS PO2 60 mm/Hg (80-100); ARTERIAL BLOOD GAS TCO2 25.7 mmol/L (22-28)
--- NOTE | 2017-06-28 08:10 | PCM.RRT ---
SHAMPOO TECHNICIAN Nurse Assessment - Situation SHAMPOO TECHNICIAN Responder Arrival Time: 07:32 Location: [facility] SHAMPOO TECHNICIAN Reason for Call: Change in Mental Status SHAMPOO TECHNICIAN Called By: RN - IV IV Inserted during SHAMPOO TECHNICIAN?: No - Respiratory Oxygen Delivery Method: Nasal Cannula I.Reason for SHAMPOO TECHNICIAN - A) Acute Change in Patient: Subjective: SHAMPOO TECHNICIAN Location: [facility] SHAMPOO TECHNICIAN Reason:
[2017-06-28 08:13] LABS: BASO # 0.2 K/uL (0.0-0.2); BASO % 1.3 % (0.0-2.0); EOS # 0.3 K/uL (0.0-0.7); EOS % 2.6 % (0.0-4.0); HEMOGLOBIN 10.2 g/dL (12.0-16.0); LYMPH # 3.3 K/uL (1.0-4.3); LYMPH % 24.9 % (20.0-40.0); MEAN CELL VOLUME 92.3 fl (81.0-99.0); MEAN CORPUSCULAR HEMOGLOBIN 29.8 pg (27.0-31.0); MEAN CORPUSCULAR HGB CONC 32.3 g/dL (33.0-37.0); MEAN PLATELET VOLUME 8.1 fl (7.2-11.7); MONO # 0.4 K/uL (0.0-0.8); MONO % 3.3 % (0.0-10.0); NEUT % 67.9 % (50.0-75.0); NRBC % 0.1 % (0.0-0.0); RBC 3.42 Mil/uL (3.80-5.20); RED CELL DISTRIBUTION WIDTH 15.2 % (11.5-14.5); WHITE BLOOD COUNT 13.2 K/uL (4.8-10.8)
--- NOTE | 2017-06-28 08:28 | PCM.RRT ---
<Harley Cooln - Last Filed: 06/28/17 08:21> HEATING AND COOLING TECHNICIAN Nurse Assessment - Situation HEATING AND COOLING TECHNICIAN Responder Arrival Time: 07:32 Location: 654-1 HEATING AND COOLING TECHNICIAN Reason for Call: Change in Mental Status HEATING AND COOLING TECHNICIAN Called By: RN - IV IV Inserted during HEATING AND COOLING TECHNICIAN?: No - Respiratory Oxygen Delivery Method: Nasal Cannula I.Reason for HEATING AND COOLING TECHNICIAN - A) Acute Change in Patient: Subjective: 71 y/o woman on tube feed w/ pmh of CVA, seizure, and DM2 had HEATING AND COOLING TECHNICIAN called for AMS and seizure activity. The patient was at baseline until patient was found to have elevated BP and altered. Patient was having active seizure and given ativan 2.0 mg IVP stat. Patient then became dyspneic and found to have rales on physical exam. Patient has no history of CHF. Patient given lasix 40 mg IVP and then another 20 mg IVP. Patient was put on venti mask. Patient had EKG done which showed no acute changes and similar to previous EKG done in 2017. The patient had CBC, CMP, troponin, pro-BNP, coags, CPK, prolactin, TSH, mag, and phos drawn. Patient had michel placed. CXR adn CT head w/o ordered. Patient transferred to Tele for further monitoring. Based on previous documentation, patient status is found to be DNR - Neurological Status (Select all that apply): Alert, Responsive. absent: Oriented - Respiratory Oxygen Delivery Method: Venturi Mask @% - Constitutional Appears: In Acute Distress, Confused - Head Head Exam: ATRAUMATIC, NORMAL INSPECTION, NORMOCEPHALIC - Eyes Eye Exam: Normal appearance - Respiratory Exam Respiratory Exam: Decreased Breath Sounds, Rales (diffuse). absent: Accessory Muscle Use, Rhonchi - Cardiovascular Exam Cardiovascular Exam: absent: Tachycardia - Neurological Exam Neurological Exam: Alert, Awake - Extremities Exam Extremities Exam: absent: Calf Tenderness, Pedal Edema, Tenderness Plan - Assessment of Findings&Treatment Plan 71 y/o woman on tube feed w/ pmh of CVA, seizure, and DM2 had HEATING AND COOLING TECHNICIAN called for AMS and seizure activity. f/u CBC, CMP, troponin, pro-BNP, coags, CPK, prolactin, TSH, mag, and phos f/u CXR f/u CT head w/o ativan 2.0 mg Q4h prn for seizure activity monitor for acute changes transfer to Tele code status: DNR <Sandhya Echeverria - Last Filed: 06/28/17 16:27> HEATING AND COOLING TECHNICIAN Nurse Assessment - Vital Signs Vital Signs: Rapid Response Vital Sign Blood Pressure 169/105 Pulse Rate 90 Respiratory Rate 21 Temperature 98.4 F Oxygen Saturation 89 - Vital Signs at end of HEATING AND COOLING TECHNICIAN Vital Signs at end of HEATING AND COOLING TECHNICIAN: Rapid Response End Vital Sign Blood Pressure 132/53 Pulse Rate 96 Respiratory Rate 17 Temperature 98.7 F O2 Sat by Pulse Oximetry 95 Attending/Attestation - Attestation I have personally seen and examined this patient.: Yes I have fully participated in the care of the patient.: Yes I have reviewed all pertinent clinical information, including history, physical exam and plan: Yes Notes (Text): HEATING AND COOLING TECHNICIAN called bec pt's BP was noted to be elevated , saturation 89% and was also noted to be just staring to one side with some seizure like activity of LE On exam : Pt noted to be dyspneic and tachypneic BP elevated , saturation 91-92% on 2 liters Lungs scattered rales Heart; reg rhythm Abd : + PEG, A/P: 1. Acute Respiratory Failure ? sec to Pulm Vascular Congestion 2. Seizure? breakthrough - IV Lasix 60 mg given - Ativan 2 mg IV - EKG : no change - ABG - CXR -Labs - CBC, CMP, Lactic acid, Trop , proBNP - transfer pt to Telemetry for close monitoring - give anti seizure meds stat - Pt is DNR ( advance directive in chart) PMD : Dr Blair notified of event
[2017-06-28 08:35] LABS: B-TYPE NATRIURETIC PEPTIDE 1140 pg/ml (0-900)
[2017-06-28 08:37] LABS: PARTIAL THROMBOPLASTIN TIME 34.4 Seconds (25.6-37.1); PROTHROMBIN TIME 11.6 Seconds (9.8-13.1)
[2017-06-28 08:38] LABS: ALB/GLOB RATIO 0.8 (1.0-2.1); ALBUMIN 3.5 g/dL (3.5-5.0); ALT/SGPT 39 U/L (9-52); AST/SGOT 35 U/L (14-36); BLOOD UREA NITROGEN 19 mg/dl (7-17); CALCIUM 9.4 mg/dL (8.4-10.2); GFR AFRICAN-AMERICAN > 60; GFR NON-AFRICAN AMERICAN > 60
--- NOTE | 2017-06-28 09:28 | RAD ---
PROCEDURE: CHEST RADIOGRAPH, 1 VIEW HISTORY: seizure activity COMPARISON: Chest radiograph dated 06/25/2017. . FINDINGS: LUNGS: Nonspecific elliptical lucency in the right midlung field. No focal consolidation. PLEURA: Stable elevation of the right hemidiaphragm. No pneumothorax or pleural fluid seen. CARDIOVASCULAR: Atherosclerotic aortic calcifications. Cardiomediastinal silhouette stably enlarged. OSSEOUS STRUCTURES: Unchanged. VISUALIZED UPPER ABDOMEN: Right upper quadrant surgical clips redemonstrated. OTHER FINDINGS: Left internal jugular access central venous catheter, unchanged. IMPRESSION: Nonspecific elliptical lucency in the right midlung field. No focal consolidation.
[2017-06-28] MEDS: Famotidine 40 MG/5 ML PEG SCH (09:30)
[2017-06-28] MEDS: OXcarbazepine 300 mg/5 ml Syringe PEG SCH ×2 (09:30→22:34)
[2017-06-28] MEDS: Insulin Detemir 100 Units/ml Inj SC SCH ×2 (09:30→22:29)
[2017-06-28] MEDS ORDERED: Bacitracin/Neomycin/Polymyxin 30GM OINT TOP SCH (10:15)
[2017-06-28] MEDS: Silver Sulfadiazine 1% Cream (20 gm) TOP SCH ×2 (10:55→16:39)
--- NOTE | 2017-06-28 12:53 | CT ---
PROCEDURE: CT HEAD WITHOUT CONTRAST. HISTORY: seizure activity COMPARISON: None available. TECHNIQUE: Axial computed tomography images were obtained through the head/brain without intravenous contrast. Radiation dose: Total exam DLP = 992.68 mGy-cm. This CT exam was performed using one or more of the following dose reduction techniques: Automated exposure control, adjustment of the mA and/or kV according to patient size, and/or use of iterative reconstruction technique. FINDINGS: HEMORRHAGE: No intracranial hemorrhage. BRAIN: There is extensive cystic encephalomalacia identified replacing the vast majority of the left frontal lobe and a subsegments of the left temporal and parietal lobes as well. Patient also status post prior left frontotemporal parietal craniotomy. Mild diffuse cerebellar atrophy is appreciated and mild atrophy of the left cerebral peduncle is appreciated related to marked left cerebral encephalomalacia. No positive mass effect is appreciate although ex vacuo expansion of the left lateral ventricle is appreciated. The ventricular system appears relatively prominent throughout which could be a function of central atrophy though communicating hydrocephalus is not completely excluded. PARANASAL SINUSES: Unremarkable as visualized. No significant inflammatory changes. MASTOID AIR CELLS: Unremarkable as visualized. No inflammatory changes. OTHER FINDINGS: None. IMPRESSION: 1. No acute intracranial hemorrhage. 2. Prior extensive left frontotemporal parietal craniotomy with prominent cystic encephalomalacia replacing the majority of the left frontal lobe, significant segment of the left temporal lobe and a mid limited portion of the superior left parietal lobe as well. No overt CT pattern to suggest an acute separate brain infarction. Follow-up MRI or CT are available as indicated. 3. The ventricular system appears somewhat prominent diffusely, potentially a function of communicating hydrocephalus. left lateral ventricle ex vacuo expansion is clearly evident due to encephalomalacia described above at the left cerebral hemisphere.
--- NOTE | 2017-06-28 14:04 | CP.PCM.PN ---
Subjective - Date & Time of Evaluation Date of Evaluation: 06/28/17 Time of Evaluation: 09:00 - Subjective Subjective: Currently patient in NAD. Tansferred to telemetry after MARGIN ANALYST. Objective - Vital Signs/Intake and Output Vital Signs (last 24 hours): Temp Pulse Resp BP Pulse Ox 99.1 F 77 18 116/76 100 06/28/17 12:27 06/28/17 12:27 06/28/17 12:27 06/28/17 12:27 06/28/17 12:27 - Medications Medications: Current Medications Acetaminophen (Tylenol 325mg Tab) 650 mg PEG Q4 PRN PRN Reason: Pain, Mild (1-3) Acetaminophen (Tylenol 325mg Tab) 650 mg PEG Q4 PRN PRN Reason: Temp >100 Last Admin: 06/21/17 17:24 Dose: 650 mg Al Hydrox/Mg Hydrox/Simethicone (Maalox Plus 30 Ml) 30 ml PEG Q4 PRN PRN Reason: heartburn/indigestion Albuterol/Ipratropium (Duoneb 3 Mg/0.5 Mg (3 Ml) Ud) 3 ml INH RQID [facility] Last Admin: 06/28/17 12:07 Dose: 3 ml Diphenhydramine HCl (Benadryl) 25 mg PEG Q8 [facility] Last Admin: 06/28/17 09:27 Dose: 25 mg Famotidine (Pepcid) 40 mg PEG DAILY [facility] Last Admin: 06/28/17 09:30 Dose: 40 mg Heparin Sodium (Porcine) (Heparin) 5,000 units SC Q12 [facility] PRN Reason: Protocol Last Admin: 06/25/17 09:17 Dose: 5,000 units Insulin Detemir (Levemir) 10 units SC Q12@1000,2200 [facility] Last Admin: 06/28/17 09:30 Dose: 10 units Insulin Human Lispro (Humalog) 0 units SC ACCU-CHECK [facility] PRN Reason: Protocol Last Admin: 06/28/17 13:54 Dose: 4 unit Lorazepam (Ativan) 2 mg IVP Q4 PRN PRN Reason: Seizure activity Magnesium Hydroxide (Milk Of Magnesia) 30 ml PEG DAILY PRN PRN Reason: Constipation Neomycin/Polymyxin/Bacitracin (Neosporin Antibiotic Oint) 1 applic TOP BID [facility] Oxcarbazepine (Trileptal) 450 mg PEG HS [facility] Last Admin: 06/27/17 21:39 Dose: 450 mg Oxcarbazepine (Trileptal) 300 mg PEG DAILY [facility] Last Admin: 06/28/17 09:30 Dose: 300 mg Petrolatum (Desitin Maximum Strength Topical 40% Oint) 1 applic TOP Q8 PRN PRN Reason: skin excoriation Last Admin: 06/24/17 00:43 Dose: 1 applic Silver Sulfadiazine (Silvadene 1% 20 Gm) 1 ea TOP BID [facility] Last Admin: 06/28/17 10:55 Dose: 1 applic Topiramate (Topamax) 100 mg PO Q12 [facility] Last Admin: 06/28/17 09:29 Dose: 100 mg - Labs Labs: 06/28/17 08:09 06/28/17 08:09 PT 11.6 Seconds (9.8-13.1) 06/28/17 08:09 INR 1.0 (0.9-1.2) 06/28/17 08:09 APTT 34.4 Seconds (25.6-37.1) 06/28/17 08:09 - Head Exam Head Exam: ATRAUMATIC - Eye Exam Eye Exam: Normal appearance - ENT Exam ENT Exam: Mucous Membranes Moist - Respiratory Exam Respiratory Exam: Clear to Ausculation Bilateral - Cardiovascular Exam Cardiovascular Exam: REGULAR RHYTHM - GI/Abdominal Exam GI & Abdominal Exam: Soft Additional comments: Abdominal wall improving Still exudative around PEG site Assessment and Plan (1) Cellulitis, abdominal wall Assessment & Plan: Telfa and gauze dressing reapplied. Received a call from clinical specialist and agree with topical application of Silver-Sodium alginate and neomycin . Status: Acute
--- NOTE | 2017-06-28 14:35 | CP.PCM.PN ---
Subjective - Date & Time of Evaluation Date of Evaluation: 06/28/17 Time of Evaluation: 14:35 - Subjective Subjective: Id note- pt. seen and examined today in tele floor. 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 pt. is now in tele. not in any distress but is on ventimask . awake but less engaged than yesterday but as per tele nurse pt. also got ativan bc durring RERECORDING MIXER she was noted to have seizure. Objective - Vital Signs/Intake and Output Vital Signs (last 24 hours): Temp Pulse Resp BP Pulse Ox 99.1 F 77 18 116/76 100 06/28/17 12:27 06/28/17 12:27 06/28/17 12:27 06/28/17 12:27 06/28/17 12:27 - Medications Medications: Current Medications Acetaminophen (Tylenol 325mg Tab) 650 mg PEG Q4 PRN PRN Reason: Pain, Mild (1-3) Acetaminophen (Tylenol 325mg Tab) 650 mg PEG Q4 PRN PRN Reason: Temp >100 Last Admin: 06/21/17 17:24 Dose: 650 mg Al Hydrox/Mg Hydrox/Simethicone (Maalox Plus 30 Ml) 30 ml PEG Q4 PRN PRN Reason: heartburn/indigestion Albuterol/Ipratropium (Duoneb 3 Mg/0.5 Mg (3 Ml) Ud) 3 ml INH RQID REPLACED BY [facility] Last Admin: 06/28/17 12:07 Dose: 3 ml Diphenhydramine HCl (Benadryl) 25 mg PEG Q8 REPLACED BY [facility] Last Admin: 06/28/17 09:27 Dose: 25 mg Famotidine (Pepcid) 40 mg PEG DAILY REPLACED BY [facility] Last Admin: 06/28/17 09:30 Dose: 40 mg Heparin Sodium (Porcine) (Heparin) 5,000 units SC Q12 REPLACED BY [facility] PRN Reason: Protocol Last Admin: 06/25/17 09:17 Dose: 5,000 units Insulin Detemir (Levemir) 10 units SC Q12@1000,2200 REPLACED BY [facility] Last Admin: 06/28/17 09:30 Dose: 10 units Insulin Human Lispro (Humalog) 0 units SC ACCU-CHECK REPLACED BY [facility] PRN Reason: Protocol Last Admin: 06/28/17 13:54 Dose: 4 unit Lorazepam (Ativan) 2 mg IVP Q4 PRN PRN Reason: Seizure activity Magnesium Hydroxide (Milk Of Magnesia) 30 ml PEG DAILY PRN PRN Reason: Constipation Neomycin/Polymyxin/Bacitracin (Neosporin Antibiotic Oint) 1 applic TOP BID REPLACED BY [facility] Oxcarbazepine (Trileptal) 450 mg PEG HS REPLACED BY [facility] Last Admin: 06/27/17 21:39 Dose: 450 mg Oxcarbazepine (Trileptal) 300 mg PEG DAILY REPLACED BY [facility] Last Admin: 06/28/17 09:30 Dose: 300 mg Petrolatum (Desitin Maximum Strength Topical 40% Oint) 1 applic TOP Q8 PRN PRN Reason: skin excoriation Last Admin: 06/24/17 00:43 Dose: 1 applic Silver Sulfadiazine (Silvadene 1% 20 Gm) 1 ea TOP BID REPLACED BY [facility] Last Admin: 06/28/17 10:55 Dose: 1 applic Topiramate (Topamax) 100 mg PO Q12 REPLACED BY [facility] Last Admin: 06/28/17 09:29 Dose: 100 mg - Labs Labs: - Additional Findings Additional findings: - Constitutional Appears: No Acute Distress, Agitated, Chronically Ill - Head Exam Head Exam: ATRAUMATIC - Eye Exam Eye Exam: EOMI - ENT Exam Additional comments: poor dentition dry oral mucosa - Neck Exam Neck exam: Positive for: Full Rom - Respiratory Exam Respiratory Exam: NORMAL BREATHING PATTERN Additional comments: No wheezing slight decrease in right base breath sound - Cardiovascular Exam Cardiovascular Exam: RRR, +S1, +S2 - GI/Abdominal Exam Additional comments: less distended and softer today + BS peg tube site with slight area of irritation much less than before the fistula site still open and draining some clear fluid , no longer thick and pustular no guarding no rebound - Extremities Exam Additional comments: erythema and edema in b/l arms has resolve for the most part only right hand remains edematous blisters on right arm have almost completely resolved - Neurological Exam Additional comments: awake but somewhat drowsy today Laboratory Results - last 72 hr 06/25/17 06/26/17 06/26/17 21:14 05:35 05:35 WBC 9.3 RBC 2.92 L Hgb 8.8 L Hct 27.3 L MCV 93.4 D MCH 30.2 MCHC 32.3 L RDW 15.0 H Plt Count 125 L D MPV Neut % (Auto) Lymph % (Auto) [place] % (Auto) Eos % (Auto) Baso % (Auto) Neut # (Auto) Lymph # (Auto) [place] # (Auto) Eos # (Auto) Baso # (Auto) PT INR APTT pCO2 pO2 HCO3 ABG pH ABG Total CO2 ABG O2 Saturation ABG Base Excess Fernandez Test ABG Potassium A-a O2 Difference Glucose Lactate FiO2 Sodium 149 H Potassium 4.2 Chloride 114 H Carbon Dioxide 25 Anion Gap 14 BUN 18 H Creatinine 0.6 L Est GFR ( Amer) > 60 Est GFR (Non-Af Amer) > 60 POC Glucose (mg/dL) 155 H Random Glucose 234 H Calcium 8.7 Phosphorus Magnesium Total Bilirubin 0.3 AST 27 ALT 44 Alkaline Phosphatase 81 Total Creatine Kinase Troponin I NT-Pro-B Natriuret Pep Total Protein 6.6 Albumin 2.9 L Globulin 3.8 Albumin/Globulin Ratio 0.8 L TSH 3rd Generation Arterial Blood Potassium 06/26/17 06/26/17 06/26/17 05:35 11:41 15:29 WBC RBC Hgb Hct MCV MCH MCHC RDW Plt Count MPV Neut % (Auto) Lymph % (Auto) [place] % (Auto) Eos % (Auto) Baso % (Auto) Neut # (Auto) Lymph # (Auto) [place] # (Auto) Eos # (Auto) Baso # (Auto) PT INR APTT pCO2 pO2 HCO3 ABG pH ABG Total CO2 ABG O2 Saturation ABG Base Excess Fernandez Test ABG Potassium A-a O2 Difference Glucose Lactate FiO2 Sodium Potassium Chloride Carbon Dioxide Anion Gap BUN Creatinine Est GFR ( Amer) Est GFR (Non-Af Amer) POC Glucose (mg/dL) 136 H 162 H 261 H Random Glucose Calcium Phosphorus Magnesium Total Bilirubin AST ALT Alkaline Phosphatase Total Creatine Kinase Troponin I NT-Pro-B Natriuret Pep Total Protein Albumin Globulin Albumin/Globulin Ratio TSH 3rd Generation Arterial Blood Potassium 06/26/17 06/27/17 06/27/17 21:58 05:12 11:17 WBC RBC Hgb Hct MCV MCH MCHC RDW Plt Count MPV Neut % (Auto) Lymph % (Auto) [place] % (Auto) Eos % (Auto) Baso % (Auto) Neut # (Auto) Lymph # (Auto) [place] # (Auto) Eos # (Auto) Baso # (Auto) PT INR APTT pCO2 pO2 HCO3 ABG pH ABG Total CO2 ABG O2 Saturation ABG Base Excess Fernandez Test ABG Potassium A-a O2 Difference Glucose Lactate FiO2 Sodium Potassium Chloride Carbon Dioxide Anion Gap BUN Creatinine Est GFR ( Amer) Est GFR (Non-Af Amer) POC Glucose (mg/dL) 235 H 321 H 275 H Random Glucose Calcium Phosphorus Magnesium Total Bilirubin AST ALT Alkaline Phosphatase Total Creatine Kinase Troponin I NT-Pro-B Natriuret Pep Total Protein Albumin Globulin Albumin/Globulin Ratio TSH 3rd Generation Arterial Blood Potassium 06/27/17 06/27/17 06/28/17 16:35 22:11 05:06 WBC RBC Hgb Hct MCV MCH MCHC RDW Plt Count MPV Neut % (Auto) Lymph % (Auto) [place] % (Auto) Eos % (Auto) Baso % (Auto) Neut # (Auto) Lymph # (Auto) [place] # (Auto) Eos # (Auto) Baso # (Auto) PT INR APTT pCO2 pO2 HCO3 ABG pH ABG Total CO2 ABG O2 Saturation ABG Base Excess Fernandez Test ABG Potassium A-a O2 Difference Glucose Lactate FiO2 Sodium Potassium Chloride Carbon Dioxide Anion Gap BUN Creatinine Est GFR ( Amer) Est GFR (Non-Af Amer) POC Glucose (mg/dL) 187 H 229 H 199 H Random Glucose Calcium Phosphorus Magnesium Total Bilirubin AST ALT Alkaline Phosphatase Total Creatine Kinase Troponin I NT-Pro-B Natriuret Pep Total Protein Albumin Globulin Albumin/Globulin Ratio [facility] 3rd Generation Arterial Blood Potassium 06/28/17 06/28/17 06/28/17 07:35 07:46 08:09 WBC 13.2 H RBC 3.42 L Hgb 10.2 L Hct 31.6 L MCV 92.3 MCH 29.8 MCHC 32.3 L RDW 15.2 H Plt Count 166 MPV 8.1 Neut % (Auto) 67.9 Lymph % (Auto) 24.9 [place] % (Auto) 3.3 Eos % (Auto) 2.6 Baso % (Auto) 1.3 Neut # (Auto) 9.0 H Lymph # (Auto) 3.3 [place] # (Auto) 0.4 Eos # (Auto) 0.3 Baso # (Auto) 0.2 PT INR APTT pCO2 37 pO2 60 L HCO3 25.1 ABG pH 7.43 ABG Total CO2 25.7 ABG O2 Saturation 93.8 L ABG Base Excess 0.4 Fernandez Test Yes ABG Potassium 4.7 A-a O2 Difference 108.0 Glucose 176 H Lactate 2.9 H FiO2 30.0 Sodium 142.0 Potassium Chloride 112.0 H Carbon Dioxide Anion Gap BUN Creatinine Est GFR ( Amer) Est GFR (Non-Af Amer) POC Glucose (mg/dL) 151 H Random Glucose Calcium Phosphorus Magnesium Total Bilirubin AST ALT Alkaline Phosphatase Total Creatine Kinase Troponin I NT-Pro-B Natriuret Pep Total Protein Albumin Globulin Albumin/Globulin Ratio TSH 3rd Generation Arterial Blood Potassium 4.7 06/28/17 06/28/17 06/28/17 08:09 08:09 11:19 WBC RBC Hgb Hct MCV MCH MCHC RDW Plt Count MPV Neut % (Auto) Lymph % (Auto) [place] % (Auto) Eos % (Auto) Baso % (Auto) Neut # (Auto) Lymph # (Auto) [place] # (Auto) Eos # (Auto) Baso # (Auto) PT 11.6 INR 1.0 APTT 34.4 pCO2 pO2 HCO3 ABG pH ABG Total CO2 ABG O2 Saturation ABG Base Excess Fernandez Test ABG Potassium A-a O2 Difference Glucose Lactate FiO2 Sodium 147 Potassium 4.6 Chloride 109 H Carbon Dioxide 25 Anion Gap 18 BUN 19 H Creatinine 0.7 Est GFR ( Amer) > 60 Est GFR (Non-Af Amer) > 60 POC Glucose (mg/dL) 277 H Random Glucose 161 H Calcium 9.4 Phosphorus 3.9 Magnesium 1.7 Total Bilirubin 0.5 AST 35 ALT 39 Alkaline Phosphatase 96 Total Creatine Kinase 58 Troponin I < 0.0120 NT-Pro-B Natriuret Pep 1140 H Total Protein 7.7 Albumin 3.5 D Globulin 4.2 H Albumin/Globulin Ratio 0.8 L TSH 3rd Generation 3.82 Arterial Blood Potassium 06/28/17 15:56 WBC RBC Hgb Hct MCV MCH MCHC RDW Plt Count MPV Neut % (Auto) Lymph % (Auto) [place] % (Auto) Eos % (Auto) Baso % (Auto) Neut # (Auto) Lymph # (Auto) [place] # (Auto) Eos # (Auto) Baso # (Auto) PT INR APTT pCO2 pO2 HCO3 ABG pH ABG Total CO2 ABG O2 Saturation ABG Base Excess Fernandez Test ABG Potassium A-a O2 Difference Glucose Lactate FiO2 Sodium Potassium Chloride Carbon Dioxide Anion Gap BUN Creatinine Est GFR ( Amer) Est GFR (Non-Af Amer) POC Glucose (mg/dL) 199 H Random Glucose Calcium Phosphorus Magnesium Total Bilirubin AST ALT Alkaline Phosphatase Total Creatine Kinase Troponin I NT-Pro-B Natriuret Pep Total Protein Albumin Globulin Albumin/Globulin Ratio TSH 3rd Generation Arterial Blood Potassium Microbiology 06/21/17 18:38 Blood Blood Culture - Final NO GROWTH AFTER 5 DAYS 06/21/17 18:38 Blood Gram Stain - Final TEST NOT PERFORMED 06/21/17 18:28 Blood Blood Culture - Final NO GROWTH AFTER 5 DAYS 06/21/17 18:28 Blood Gram Stain - Final TEST NOT PERFORMED 06/20/17 06:19 Blood Blood Culture - Final NO GROWTH AFTER 5 DAYS 06/20/17 15:10 Abdomen Gram Stain - Final 06/20/17 15:10 Abdomen Wound Culture - Final Providencia Stuartii Enterococcus Faecalis Accession No. : [id number] Patient Name / ID : ALEXANDRA BRISENO / [id number] Exam Date : 06/28/2017 07:42:46 ( Approved ) Study Comment : Sex / Age : F / 71Y Creator : Jose Luis Mina MD Dictator : Jose Luis Mina MD [employer] Faculty Member : Tub Operator : Jose Luis Mina MD Approver2 : Report Date : 06/28/2017 09:25:59 My Comment : PROCEDURE: CHEST RADIOGRAPH, 1 VIEW HISTORY: seizure activity COMPARISON: Chest radiograph dated 06/25/2017. . FINDINGS: LUNGS: Nonspecific elliptical lucency in the right midlung field. No focal consolidation. PLEURA: Stable elevation of the right hemidiaphragm. No pneumothorax or pleural fluid seen. CARDIOVASCULAR: Atherosclerotic aortic calcifications. Cardiomediastinal silhouette stably enlarged. OSSEOUS STRUCTURES: Unchanged. VISUALIZED UPPER ABDOMEN: Right upper quadrant surgical clips redemonstrated. OTHER FINDINGS: Left internal jugular access central venous catheter, unchanged. IMPRESSION: Nonspecific elliptical lucency in the right midlung field. No focal consolidation. Assessment and Plan (1) Cellulitis, abdominal wall Status: Acute (2) Irritation around percutaneous endoscopic gastrostomy (PEG) tube site Status: Acute (3) Cough Status: Acute - Assessment and Plan (Free Text) Assessment: A/P- 71 year old female from [place] with dementia, CVA, seizure disorder, DM II, admitted with infected peg tube site. s/p RERECORDING MIXER earlier today most likley had aspiration pneumonitis based on CXR result and nurse's report minimal leukocytosis today. gastrocutaneous fistula remains open but much less drainage and mostly clear fluid blood cx- neg x 2 peg tube site wound cx- e.fecalis and proteus skin allergic reaction almost entirely resolved. plan- in light of patient's multiple abx allergies advise to hold off on systemic abx for now and asked nurse to suction pt. frequently to get rid of the phlegm and strict aspiration precautions. send sputum for culture if possible. f/u wbc in am. completed 4 days of IV meropenem amd IV daptomyicn. systemic antibiotics are on hold s econdary to patient's allergic skin reactions to almost all classes of antibiotics. local wound care for peg tube site as per wound nurse as patient has multiple very strong allergic skin reactions and since she is afebrile with normal wbc count. patient would need to have gastrocutaneous fistula closed if possible as patient is at constant risk for site cellulitis secondary to fluid drainage from the fistula. all above d/w at length.
[2017-06-28 16:51] LABS: PROLACTIN 30.8 ng/mL (3.0-18.9)
[2017-06-28] MEDS: Bacitracin/Neomycin/Polymyxin 30GM OINT TOP SCH (18:26)
[2017-06-29] MEDS: DiphenhydrAMINE 12.5 mg/5 ml LIQ UD (5 ml) PEG SCH ×3 (01:42→16:26)
[2017-06-29] MEDS: Albuterol-Ipratrop 3 mg / 0.5 (3 ml) UD INH SCH ×4 (07:54→19:35)
[2017-06-29] MEDS: Bacitracin/Neomycin/Polymyxin 30GM OINT TOP SCH ×2 (08:25→16:25)
[2017-06-29] MEDS: OXcarbazepine 300 mg/5 ml Syringe PEG SCH ×2 (08:26→21:17)
[2017-06-29] MEDS: Insulin Lispro (humaLOG) 100 Units/ml Inj SC SCH ×4 (08:27→23:35)
[2017-06-29] MEDS: Silver Sulfadiazine 1% Cream (20 gm) TOP SCH ×2 (08:29→16:25)
[2017-06-29] MEDS: Famotidine 40 MG/5 ML PEG SCH (08:30)
[2017-06-29] MEDS: Insulin Detemir 100 Units/ml Inj SC SCH ×2 (09:23→21:18)
--- NOTE | 2017-06-29 11:33 | CARD ---
APPROVED REPORT EKG Measurement Heart [id number] <Conclusion> Normal sinus rhythm Anterolateral infarct, age undetermined Abnormal ECG
--- NOTE | 2017-06-29 14:30 | PN ---
DATE: 06/27/2017 DAILY PROGRESS NOTE Late entry for progress note done on 06/27/2017. SUBJECTIVE: The patient was seen on 06/27/2017. She was not in any cardiopulmonary distress. The patient was started on the gastric tube feeding the day before. PHYSICAL EXAMINATION: VITAL SIGNS: Blood pressure was 149/79, temperature 98.9, respiratory rate 20, and pulse 81. HEENT: Pupils are equal and reactive to light. Normal appearing mucosa of the conjunctivae, . NECK: Supple. No JVD. No carotid bruit. No lymph node. No thyromegaly. CHEST AND LUNGS: Bilateral symmetrical expansion. Good air exchange bilaterally. CARDIOVASCULAR SYSTEM: PMI not localized, S1 and S2. No additional sounds. ABDOMEN: Normoactive bowel sounds. No tenderness. Gastric tube is in place. EXTREMITIES: No cyanosis. No clubbing. No edema. CENTRAL NERVOUS SYSTEM: Awake, but there is weakness of the right side. ASSESSMENT: Malfunctioning gastric tube with abdominal wall cellulitis and abdominal wound above the gastric tube that is being treated locally by local wound treatment. Type 2 diabetes mellitus, cerebrovascular accident, , and hypertension. PLAN: Continue current medications and we will plan to discharge the patient back to group home. Vikas Blair MD
--- NOTE | 2017-06-29 15:12 | PN ---
DATE: 06/28/2017 DAILY PROGRESS NOTE Late entry for a progress note done on 06/28/2017. SUBJECTIVE: The patient had an WEIGHT YARDAGE CHECKER done due to seizure and shortness of breath. The patient was transferred to telemetry floor and she was lethargic by the time of this examination. PHYSICAL EXAMINATION: VITAL SIGNS: Blood pressure 116/76, temperature 99.1, respiratory rate 18, and pulse 77. HEENT: Pupils equal and reactive to light. Positive gingival hyperplasia. NECK: Supple. No JVD. No carotid bruit. No lymph node. No thyromegaly. CHEST AND LUNGS: Bilateral symmetrical expansion. Good air exchange. No rales. No rhonchi. CARDIOVASCULAR SYSTEM: PMI not localized, S1 and S2. No additional sounds. ABDOMEN: Normoactive bowel sounds. Gastric tube is in place and the patient has local wound treatment by wound care nurse. EXTREMITIES: No cyanosis. No clubbing. No edema. CENTRAL NERVOUS SYSTEM: Awake, but she is aphasic and moves only the left upper extremity. ASSESSMENT: 1. Infected abdominal wall wound and cellulitis. 2. Type 2 diabetes mellitus. 3. Hypertension. 4. Cerebrovascular accident, currently bedridden. 5. Seizure disorder. PLAN: We will do Neurology consult. Continue current medications including antiplatelet medications through the gastric tube. Vikas Blair MD MTDD
--- NOTE | 2017-06-29 15:19 | PN ---
DATE: 06/29/2017 DAILY PROGRESS NOTE SUBJECTIVE: The patient is seen today, 06/29/2017. She is not in any cardiopulmonary distress. The patient is more awake and she is back to her baseline. PHYSICAL EXAMINATION: VITAL SIGNS: Blood pressure of 124/65, temperature of 97.6, respiratory rate of 18, and pulse of 81. HEENT: Pupils are equal and reactive to light. Normal-appearing mucosa of the conjunctivae, oropharynx, and nasal membrane mucosa. NECK: Supple. No JVD. No carotid bruit. No lymph node. No thyromegaly. CHEST AND LUNGS: Bilateral symmetrical expansion. Good air exchange. No rales. No rhonchi. CARDIOVASCULAR SYSTEM: PMI not localized. S1 and S2. No additional sounds. ABDOMEN: Gastric tube is in place and the patient has anterior abdominal wall wound that being cared by wound nurse. EXTREMITIES: No cyanosis. No clubbing. No edema. CENTRAL NERVOUS SYSTEM: Awake and moves all her left upper extremity. ASSESSMENT: Cerebrovascular accident, gastric tube feeding, hypertension, type 2 diabetes mellitus, infected abdominal wall wound, and seizure disorder. PLAN: Continue current medications and follow Neurology and GI recommendations and continue gastric tube feeding. Vikas Blair MD MTDD
[2017-06-30] MEDS: DiphenhydrAMINE 12.5 mg/5 ml LIQ UD (5 ml) PEG SCH ×3 (00:56→16:56)
[2017-06-30] MEDS: Albuterol-Ipratrop 3 mg / 0.5 (3 ml) UD INH SCH ×4 (07:05→19:09)
[2017-06-30 09:36] LABS: BASO # 0.1 K/uL (0.0-0.2); BASO % 0.9 % (0.0-2.0); EOS # 0.1 K/uL (0.0-0.7); EOS % 1.5 % (0.0-4.0); HEMOGLOBIN 8.4 g/dL (12.0-16.0); LYMPH # 1.5 K/uL (1.0-4.3); MEAN CELL VOLUME 92.3 fl (81.0-99.0); MEAN CORPUSCULAR HEMOGLOBIN 30.9 pg (27.0-31.0); MEAN CORPUSCULAR HGB CONC 33.5 g/dL (33.0-37.0); MONO # 0.6 K/uL (0.0-0.8); MONO % 7.9 % (0.0-10.0); NEUT # 5.8 K/uL (1.8-7.0); NEUT % 71.7 % (50.0-75.0); RBC 2.73 Mil/uL (3.80-5.20); RED CELL DISTRIBUTION WIDTH 15.4 % (11.5-14.5); WHITE BLOOD COUNT 8.1 K/uL (4.8-10.8)
[2017-06-30] MEDS: Insulin Lispro (humaLOG) 100 Units/ml Inj SC SCH ×3 (09:44→17:13)
[2017-06-30] MEDS: Insulin Detemir 100 Units/ml Inj SC SCH ×2 (09:45→21:27)
[2017-06-30] MEDS: Bacitracin/Neomycin/Polymyxin 30GM OINT TOP SCH ×2 (09:45→16:54)
[2017-06-30] MEDS: Famotidine 40 MG/5 ML PEG SCH (09:46)
[2017-06-30] MEDS: OXcarbazepine 300 mg/5 ml Syringe PEG SCH ×2 (09:47→21:29)
[2017-06-30] MEDS: Silver Sulfadiazine 1% Cream (20 gm) TOP SCH ×2 (11:47→17:12)
--- NOTE | 2017-06-30 17:43 | CP.PCM.PN ---
Subjective - Date & Time of Evaluation Date of Evaluation: 06/30/17 Time of Evaluation: 17:38 - Subjective Subjective: Patient followed for gasrocutaneous fistula and abdominal wall excoriation Objective - Vital Signs/Intake and Output Vital Signs (last 24 hours): Temp Pulse Resp BP Pulse Ox 99.1 F 81 18 119/71 100 06/30/17 15:51 06/30/17 15:51 06/30/17 15:51 06/30/17 15:51 06/30/17 15:51 Intake and Output: 06/30/17 06/30/17 06:59 18:59 Intake Total 1380 Output Total 400 Balance 980 - Medications Medications: Current Medications Acetaminophen (Tylenol 325mg Tab) 650 mg PEG Q4 PRN PRN Reason: Pain, Mild (1-3) Acetaminophen (Tylenol 325mg Tab) 650 mg PEG Q4 PRN PRN Reason: Temp >100 Last Admin: 06/21/17 17:24 Dose: 650 mg Al Hydrox/Mg Hydrox/Simethicone (Maalox Plus 30 Ml) 30 ml PEG Q4 PRN PRN Reason: heartburn/indigestion Albuterol/Ipratropium (Duoneb 3 Mg/0.5 Mg (3 Ml) Ud) 3 ml INH RQID [facility] Last Admin: 06/30/17 15:37 Dose: 3 ml Diphenhydramine HCl (Benadryl) 25 mg PEG Q8 [facility] Last Admin: 06/30/17 16:56 Dose: 25 mg Famotidine (Pepcid) 40 mg PEG DAILY [facility] Last Admin: 06/30/17 09:46 Dose: 40 mg Heparin Sodium (Porcine) (Heparin) 5,000 units SC Q12 [facility] PRN Reason: Protocol Last Admin: 06/25/17 09:17 Dose: 5,000 units Insulin Detemir (Levemir) 10 units SC Q12@1000,2200 [facility] Last Admin: 06/30/17 09:45 Dose: 10 units Insulin Human Lispro (Humalog) 0 units SC ACCU-CHECK [facility] PRN Reason: Protocol Last Admin: 06/30/17 17:13 Dose: 3 unit Lorazepam (Ativan) 2 mg IVP Q4 PRN PRN Reason: Seizure activity Magnesium Hydroxide (Milk Of Magnesia) 30 ml PEG DAILY PRN PRN Reason: Constipation Neomycin/Polymyxin/Bacitracin (Neosporin Antibiotic Oint) 1 applic TOP BID [facility] Last Admin: 06/30/17 16:54 Dose: 1 applic Oxcarbazepine (Trileptal) 450 mg PEG HS [facility] Last Admin: 06/29/17 21:17 Dose: 450 mg Oxcarbazepine (Trileptal) 300 mg PEG DAILY [facility] Last Admin: 06/30/17 09:47 Dose: 300 mg Petrolatum (Desitin Maximum Strength Topical 40% Oint) 1 applic TOP Q8 PRN PRN Reason: skin excoriation Last Admin: 06/24/17 00:43 Dose: 1 applic Silver Sulfadiazine (Silvadene 1% 50 Gm) 1 applic TOP BID [facility] Topiramate (Topamax) 100 mg PO Q12 [facility] Last Admin: 06/30/17 09:46 Dose: 100 mg - Labs Labs: 06/30/17 05:20 06/28/17 08:09 PT 11.6 Seconds (9.8-13.1) 06/28/17 08:09 INR 1.0 (0.9-1.2) 06/28/17 08:09 APTT 34.4 Seconds (25.6-37.1) 06/28/17 08:09 - Head Exam Head Exam: ATRAUMATIC - ENT Exam ENT Exam: Mucous Membranes Moist - Neck Exam Neck Exam: Full ROM - Respiratory Exam Respiratory Exam: NORMAL BREATHING PATTERN - Cardiovascular Exam Cardiovascular Exam: REGULAR RHYTHM, +S1, +S2 - GI/Abdominal Exam GI & Abdominal Exam: Soft Additional comments: Abdominal wall somewhat more excoriated. Dressing changed with me observing. Area cleansed with betadyne and then silvadene and antibiotic ointment applied. Compression telfa dressing to fistula and absorbent guaze around current PEG. Assessment and Plan (1) Cellulitis, abdominal wall Status: Acute
--- NOTE | 2017-06-30 22:46 | PN ---
DAILY PROGRESS NOTE DATE: 06/30/2017 SUBJECTIVE: The patient is seen today, 06/30/2017. She is not in any cardiopulmonary distress and no further seizure was noticed. PHYSICAL EXAMINATION: VITAL SIGNS: Blood pressure of 121/74, temperature of 98.5, respiratory rate of 18, and pulse of 78. HEENT: Pupils are equal and reactive to light. Normal-appearing mucosa of the conjunctivae, oropharynx, and nasal membrane mucosa. NECK: Supple. No JVD. No carotid bruit. No lymph node. No thyromegaly. CHEST AND LUNGS: Bilateral symmetrical expansion. Good air exchange. No rales. No rhonchi. CARDIOVASCULAR: PMI not localized. S1 and S2. No additional sounds. ABDOMEN: Normal bowel sounds. Gastric tube is in place. There is an open wound above the gastric tube site with some drainage. EXTREMITIES: No cyanosis. No clubbing. No edema. CENTRAL NERVOUS SYSTEM: Awake, but aphasic and not responding to verbal stimuli. ASSESSMENT: Acute abdominal wall cellulitis, seizure disorder, abdominal wall wound, type 2 diabetes mellitus, and hypertension. PLAN: Continue local wound treatment. We will discontinue Lopez catheter. Continue current seizure medications. Continue monitor the patient for more epileptic seizures. Vikas Blair MD MTDDarcy
[2017-07-01] MEDS: DiphenhydrAMINE 12.5 mg/5 ml LIQ UD (5 ml) PEG SCH ×3 (00:34→17:06)
[2017-07-01] MEDS: Insulin Lispro (humaLOG) 100 Units/ml Inj SC SCH ×3 (08:00→17:06)
[2017-07-01] MEDS: Albuterol-Ipratrop 3 mg / 0.5 (3 ml) UD INH SCH ×4 (08:15→19:21)
[2017-07-01] MEDS: Famotidine 40 MG/5 ML PEG SCH (10:17)
[2017-07-01] MEDS: OXcarbazepine 300 mg/5 ml Syringe PEG SCH (10:18)
[2017-07-01] MEDS: Bacitracin/Neomycin/Polymyxin 30GM OINT TOP SCH ×2 (10:18→17:05)
[2017-07-01] MEDS: Insulin Detemir 100 Units/ml Inj SC SCH (10:19)
[2017-07-01] MEDS: Silver Sulfadiazine 1% CREAM (50 gm) TOP SCH ×2 (10:20→17:05)
[2017-07-01 13:02] LABS: HEMOGLOBIN 8.6 g/dL (12.0-16.0); MEAN CELL VOLUME 92.2 fl (81.0-99.0); MEAN CORPUSCULAR HEMOGLOBIN 30.1 pg (27.0-31.0); MEAN CORPUSCULAR HGB CONC 32.7 g/dL (33.0-37.0); RBC 2.87 Mil/uL (3.80-5.20); RED CELL DISTRIBUTION WIDTH 15.3 % (11.5-14.5); WHITE BLOOD COUNT 6.8 K/uL (4.8-10.8)
--- NOTE | 2017-07-01 14:33 | CP.PCM.PN ---
Subjective - Date & Time of Evaluation Date of Evaluation: 07/01/17 Time of Evaluation: 14:33 - Subjective Subjective: ID note- Pt. seen and examined today. remains afebrile . no new events overnight. resting comfortably in bed. Objective - Vital Signs/Intake and Output Vital Signs (last 24 hours): Temp Pulse Resp BP Pulse Ox 98.0 F 75 20 111/64 100 07/01/17 12:22 07/01/17 12:22 07/01/17 12:22 07/01/17 12:22 07/01/17 12:22 Intake and Output: 07/01/17 07/01/17 06:59 18:59 Intake Total 1380 Output Total 300 Balance 1080 - Medications Medications: Current Medications Acetaminophen (Tylenol 325mg Tab) 650 mg PEG Q4 PRN PRN Reason: Pain, Mild (1-3) Acetaminophen (Tylenol 325mg Tab) 650 mg PEG Q4 PRN PRN Reason: Temp >100 Last Admin: 06/21/17 17:24 Dose: 650 mg Al Hydrox/Mg Hydrox/Simethicone (Maalox Plus 30 Ml) 30 ml PEG Q4 PRN PRN Reason: heartburn/indigestion Albuterol/Ipratropium (Duoneb 3 Mg/0.5 Mg (3 Ml) Ud) 3 ml INH RQID [facility] Last Admin: 07/01/17 11:40 Dose: 3 ml Diphenhydramine HCl (Benadryl) 25 mg PEG Q8 [facility] Last Admin: 07/01/17 10:18 Dose: 25 mg Famotidine (Pepcid) 40 mg PEG DAILY [facility] Last Admin: 07/01/17 10:17 Dose: 40 mg Heparin Sodium (Porcine) (Heparin) 5,000 units SC Q12 [facility] PRN Reason: Protocol Last Admin: 06/25/17 09:17 Dose: 5,000 units Insulin Detemir (Levemir) 10 units SC Q12@1000,2200 [facility] Last Admin: 07/01/17 10:19 Dose: 10 units Insulin Human Lispro (Humalog) 0 units SC ACCU-CHECK [facility] PRN Reason: Protocol Last Admin: 07/01/17 12:44 Dose: 3 unit Magnesium Hydroxide (Milk Of Magnesia) 30 ml PEG DAILY PRN PRN Reason: Constipation Neomycin/Polymyxin/Bacitracin (Neosporin Antibiotic Oint) 1 applic TOP BID [facility] Last Admin: 07/01/17 10:18 Dose: 1 applic Oxcarbazepine (Trileptal) 450 mg PEG HS [facility] Last Admin: 06/30/17 21:29 Dose: 450 mg Oxcarbazepine (Trileptal) 300 mg PEG DAILY [facility] Last Admin: 07/01/17 10:18 Dose: 300 mg Petrolatum (Desitin Maximum Strength Topical 40% Oint) 1 applic TOP Q8 PRN PRN Reason: skin excoriation Last Admin: 06/24/17 00:43 Dose: 1 applic Silver Sulfadiazine (Silvadene 1% 50 Gm) 1 applic TOP BID [facility] Last Admin: 07/01/17 10:20 Dose: 1 applic Topiramate (Topamax) 100 mg PO Q12 [facility] Last Admin: 07/01/17 10:14 Dose: Not Given - Labs Labs: - Additional Findings Additional findings: - Constitutional Appears: No Acute Distress, Agitated, Chronically Ill - Head Exam Head Exam: ATRAUMATIC - Eye Exam Eye Exam: EOMI - ENT Exam Additional comments: poor dentition dry oral mucosa - Neck Exam Neck exam: Positive for: Full Rom - Respiratory Exam Respiratory Exam: NORMAL BREATHING PATTERN Additional comments: No wheezing - Cardiovascular Exam Cardiovascular Exam: RRR, +S1, +S2 - GI/Abdominal Exam Additional comments: less distended and softer today + BS peg tube site with slight area of irritation much less than before the fistula site still open and draining some clear fluid , no longer thick and pustular no guarding no rebound - Extremities Exam Additional comments: complete resolution of the b/l arms erythema and blisters - Neurological Exam Additional comments: awake Laboratory Results - last 72 hr 06/28/17 06/28/17 06/28/17 08:09 15:56 21:37 WBC RBC Hgb Hct MCV MCH MCHC RDW Plt Count MPV Neut % (Auto) Lymph % (Auto) Amelia % (Auto) Eos % (Auto) Baso % (Auto) Neut # (Auto) Lymph # (Auto) Amelia # (Auto) Eos # (Auto) Baso # (Auto) POC Glucose (mg/dL) 199 H 208 H Prolactin 30.8 H 06/29/17 06/29/17 06/29/17 05:42 10:41 16:04 WBC RBC Hgb Hct MCV MCH MCHC RDW Plt Count MPV Neut % (Auto) Lymph % (Auto) Amelia % (Auto) Eos % (Auto) Baso % (Auto) Neut # (Auto) Lymph # (Auto) Amelia # (Auto) Eos # (Auto) Baso # (Auto) POC Glucose (mg/dL) 159 H 246 H 231 H Prolactin 06/29/17 06/29/17 06/30/17 16:22 21:03 05:18 WBC RBC Hgb Hct MCV MCH MCHC RDW Plt Count MPV Neut % (Auto) Lymph % (Auto) Amelia % (Auto) Eos % (Auto) Baso % (Auto) Neut # (Auto) Lymph # (Auto) Amelia # (Auto) Eos # (Auto) Baso # (Auto) POC Glucose (mg/dL) 252 H 244 H 213 H Prolactin 06/30/17 06/30/17 06/30/17 05:20 11:02 16:10 WBC 8.1 RBC 2.73 L Hgb 8.4 L Hct 25.2 L MCV 92.3 MCH 30.9 MCHC 33.5 RDW 15.4 H Plt Count 116 L D MPV 8.0 Neut % (Auto) 71.7 Lymph % (Auto) 18.0 L Amelia % (Auto) 7.9 Eos % (Auto) 1.5 Baso % (Auto) 0.9 Neut # (Auto) 5.8 Lymph # (Auto) 1.5 Amelia # (Auto) 0.6 Eos # (Auto) 0.1 Baso # (Auto) 0.1 POC Glucose (mg/dL) 328 H 229 H Prolactin 06/30/17 07/01/17 07/01/17 20:55 05:31 12:50 WBC 6.8 RBC 2.87 L Hgb 8.6 L Hct 26.4 L MCV 92.2 MCH 30.1 MCHC 32.7 L RDW 15.3 H Plt Count 104 L MPV Neut % (Auto) Lymph % (Auto) Amelia % (Auto) Eos % (Auto) Baso % (Auto) Neut # (Auto) Lymph # (Auto) Amelia # (Auto) Eos # (Auto) Baso # (Auto) POC Glucose (mg/dL) 260 H 244 H Prolactin Microbiology 06/21/17 18:38 Blood Blood Culture - Final NO GROWTH AFTER 5 DAYS 06/21/17 18:38 Blood Gram Stain - Final TEST NOT PERFORMED 06/21/17 18:28 Blood Blood Culture - Final NO GROWTH AFTER 5 DAYS 06/21/17 18:28 Blood Gram Stain - Final TEST NOT PERFORMED 06/20/17 06:19 Blood Blood Culture - Final NO GROWTH AFTER 5 DAYS 06/20/17 15:10 Abdomen Gram Stain - Final 06/20/17 15:10 Abdomen Wound Culture - Final Providencia Stuartii Enterococcus Faecalis Assessment and Plan (1) Cellulitis, abdominal wall Status: Acute (2) Irritation around percutaneous endoscopic gastrostomy (PEG) tube site Status: Acute (3) Cough Status: Acute - Assessment and Plan (Free Text) Assessment: A/P- 71 year old female from [place] with dementia, CVA, seizure disorder, DM II, admitted with infected peg tube site. improved clinically. afebrile leukocytosis has resolved. gastrocutaneous fistula remains open but much less drainage and mostly clear fluid blood cx- neg x 2 peg tube site wound cx- e.fecalis and proteus skin allergic reaction entirely resolved. plan- had completed 4 days of IV meropenem amd IV daptomyicn. has remained off all systemic abx secondary to skin allergies. skin allergic response has all resolved. local wound care including antibacterial ointment for peg tube site as per wound nurse as patient has multiple very strong allergic skin reactions and since she is afebrile with normal wbc count. patient would need to have gastrocutaneous fistula closed if possible as patient is at constant risk for site cellulitis secondary to fluid drainage from the fistula. aspiration precautions to be monitored closely all above d/w at length.
[2017-07-01 15:41] VITALS: RESP 18
[2017-07-01 20:03] VITALS: BP 124/67; PULSE 75; TEMP 98.3
--- NOTE | 2017-07-02 08:54 | DS ---
REASON FOR ADMISSION: This is a 71-year-old female who is a custodial resident who was admitted for cellulitis of the anterior abdominal wall. COURSE OF HOSPITALIZATION: The patient was admitted to medical floor and she was started on IV antibiotics. The patient had an ID consult done by Dr. Salomon. The patient also was found to have wound above the gastric tube that was being treated locally with local wound treatment. The patient initially had the gastric tube feeding held. The patient had a GI consult done by Dr. Paulson and eventually the gastric tube was restarted. During this patient hospitalization, the patient had episodes of seizure that was thought to be due to fluctuation of the level of the antiepileptic medications. Seizure medications were adjusted and the patient remained stable and was discharged back to custodial to continue current medications. FINAL DIAGNOSES: Anterior abdominal wall cellulitis, infected wound of the anterior abdominal wall, gastric tube feeding, seizure disorder, type 2 diabetes mellitus, cerebrovascular accident, and hypertension. Vikas Blair MD
--- NOTE | 2017-07-02 11:15 | PQF GENQUE ---
Dr. Blair 07/[address] Salomon documented "S/P SPLITTER HAND earlier today most likely had an aspiration pneumonitis." After study was diagnosis of aspiration pneumonia ruled in or out? This form is a permanent part of the medical record Clarification of your documentation is requested to better reflect the severity of illness and intensity of treatment of your patient. Indicators present [] Specify: [] [] Specify: [] [] Specify: [] [] Specify: [] Location in the medical record that reflects the above clinical findings: [] Treatment Provided: [] PHYSICIAN'S RESPONSE Based on your medical judgment of the clinical indicators outlined above please clarify the following: [] Practitioner response [] If unable to determine, please check the box, sign and date. Present On Admission (POA) Indicator: [] Present at the time of admission [] Not present at the time of admission [] Clinically Undetermined In responding to this query, please exercise your independent professional judgment. The fact that a question is asked does not imply that any particular answer is desired or expected. Thank you for your clarification on this documentation. 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
[2017-07-03 12:46] VITALS: O2SAT 96
== END 2017-07-01 21:05 | DRG 603 ==
LOC: H.ER 04:09 → H.ERHOLD 10:51 → H.MEDSURG1 16:30 → H.TEL 06-28 08:20
PROVIDERS: ADMIT Internal Medicine; ATTEND Internal Medicine
PROC: 3E0234Z Introduction of Serum, Toxoid and Vaccine into Muscle, Percutaneous Approach (ICD-10-PCS; principal; 2017-06-20)
PROC: 0DJ08ZZ Inspection of Upper Intestinal Tract, Via Natural or Artificial Opening Endoscopic (ICD-10-PCS; 2017-06-24)
PROC: 05HN33Z Insertion of Infusion Device into Left Internal Jugular Vein, Percutaneous Approach (ICD-10-PCS; 2017-06-25)
DX: L03.311 Cellulitis of abdominal wall (principal); K94.23 Gastrostomy malfunction; N39.0 Urinary tract infection, site not specified; K31.6 Fistula of stomach and duodenum; Y83.3 Surgical operation with formation of external stoma as the cause of abnormal reaction of the patient, or of later complication, without mention of misadventure at the time of the procedure; Y73.2 Prosthetic and other implants, materials and accessory gastroenterology and urology devices associated with adverse incidents; Z23 Encounter for immunization; I69.320 Aphasia following cerebral infarction; G40.909 Epilepsy, unspecified, not intractable, without status epilepticus; E11.65 Type 2 diabetes mellitus with hyperglycemia; E11.22 Type 2 diabetes mellitus with diabetic chronic kidney disease; M81.0 Age-related osteoporosis without current pathological fracture; I12.9 Hypertensive chronic kidney disease with stage 1 through stage 4 chronic kidney disease, or unspecified chronic kidney disease; N18.9 Chronic kidney disease, unspecified; J44.9 Chronic obstructive pulmonary disease, unspecified; Z88.3 Allergy status to other anti-infective agents; Z88.0 Allergy status to penicillin; K86.9 Disease of pancreas, unspecified; J98.2 Interstitial emphysema; F03.90 Unspecified dementia, unspecified severity, without behavioral disturbance, psychotic disturbance, mood disturbance, and anxiety; B96.89 Other specified bacterial agents as the cause of diseases classified elsewhere; R05 Cough; T36.95XA Adverse effect of unspecified systemic antibiotic, initial encounter; Z74.01 Bed confinement status; N20.0 Calculus of kidney; D64.9 Anemia, unspecified; F41.9 Anxiety disorder, unspecified; L27.0 Generalized skin eruption due to drugs and medicaments taken internally

== ENCOUNTER 2017-10-24 16:24 | Inpatient (IN) | payer MEDICARE, MEDICAID ==
[2017-10-24 16:24] VITALS: BMI 27.7
--- NOTE | 2017-10-24 17:27 | ED PDOC ---
HPI: Abdomen Time Seen by Provider: 10/24/17 16:42 Chief Complaint (Nursing): Abdominal Pain Chief Complaint (Provider): G-tube leakage History Per: Other (group home records) Associated Symptoms: denies: Fever, Chills, Nausea, Vomiting Additional History Per: Skilled Nursing Additional Complaint(s): 72yo female, history of COPD, CVA, hypertension, seizures, sent to ER via EMS from [facility] at [place] for evaluation of leaking g-tube since today. Patient is non-verbal at baseline so history obtained from group home reports. No reported fever, chills, vomiting, chest pain or shortness of breath. Patient is DNR and DNI per [facility]. PMD: Dr. Blair Past Medical History Reviewed: Historical Data, Nursing Documentation, Vital Signs Vital Signs: Last Vital Signs Temp 99.1 F 10/24/17 16:30 Pulse 82 10/24/17 16:30 Resp 16 10/24/17 16:30 BP 115/48 L 10/24/17 16:30 Pulse Ox 100 10/24/17 22:03 - Medical History PMH: Anemia, Anxiety, COPD, CVA, Diabetes, HTN, Osteoporosis, Pneumonia, Chronic Kidney Disease, Seizures Denies: HIV - Surgical History Other surgeries: gastrostomy - Family History Family History: States: No Known Family Hx - Living Arrangements Living Arrangements: Skilled Nursing/Assist Lv - Immunization History Hx Tetanus Toxoid Vaccination: No (no record) Hx Influenza Vaccination: No (no record) Hx Pneumococcal Vaccination: No (no record) - Home Medications Home Medications: Ambulatory Orders Medication Instructions Recorded Famotidine [Pepcid] 40 mg PEG DAILY 12/06/16 Magnesium Hydroxide [Milk Of 30 ml PEG DAILY PRN 12/06/16 Magnesia] Albuterol/Ipratropium [Duoneb 3 3 ml INH RQID neb 02/07/17 mg/0.5 mg (3 ml) UD] Aspirin [Aspirin Chewable] 81 mg PEG DAILY chew 02/07/17 Insulin Detemir [Levemir] 10 unit SC Q12H unit 02/07/17 Insulin Human Regular [Novolin R] 0 unit SC Q6 unit 02/07/17 Topiramate [Topamax] 100 mg PEG Q12 03/22/17 Acetaminophen [Tylenol 325mg tab] 650 mg PEG Q4 PRN 06/20/17 Acetaminophen [Tylenol 325mg tab] 650 mg PEG Q4 PRN 06/20/17 Mag Hydrox/Aluminum Hyd/Simeth 30 ml PEG Q4 PRN 06/20/17 [Maalox Advanced Suspension] Acetaminophen [Tylenol 325mg tab] 650 mg PEG QSHIFT 10/24/17 Mupirocin 2% Ointment [Bactroban 1 appl TOP QSHIFT 10/24/17 Ointment] Nystatin [Nyamyc] 1 appl TOP QSHIFT 10/24/17 OXcarbazepine [Trileptal] 300 mg PEG DAILY 10/24/17 OXcarbazepine [Trileptal] 450 mg PEG HS 10/24/17 Sulfamethoxazole/Trimethoprim 1 tab PEG Q12 10/24/17 [Bactrim DS Tab] - Allergies Allergies/Adverse Reactions: Allergies Allergy/AdvReac Type Severity Reaction Status Date / Time aztreonam [From Azactam] Allergy RASH Verified 10/24/17 16:30 cefepime Allergy RASH Verified 10/24/17 16:30 moxifloxacin Allergy RASH Verified 10/24/17 16:30 Penicillins Allergy RASH Verified 10/24/17 16:30 tamsulosin HCl [From Flomax] Allergy RASH Verified 10/24/17 16:30 tigecycline [From Tygacil] Allergy RASH Verified 10/24/17 16:30 vancomycin Allergy RASH Verified 10/24/17 16:30 pnemonia vaccine Allergy RASH Uncoded 10/24/17 16:30 Review of Systems ROS Statement: Except As Marked, All Systems Reviewed And Found Negative Constitutional: Negative for: Fever, Chills Cardiovascular: Negative for: Chest Pain Respiratory: Negative for: Shortness of Breath Gastrointestinal: Positive for: Other (leaking G-tube). Negative for: Vomiting Physical Exam - Reviewed Nursing Documentation Reviewed: Yes Vital Signs Reviewed: Yes - Physical Exam Appears: Positive for: Non-toxic (+ chronically ill) Head Exam: Positive for: ATRAUMATIC, NORMAL INSPECTION, NORMOCEPHALIC Skin: Positive for: Normal Color Eye Exam: Positive for: Normal appearance Neck: Positive for: Supple Cardiovascular/Chest: Positive for: Regular Rate, Rhythm Respiratory: Positive for: Normal Breath Sounds Pulses-Radial (L): 2+ Pulses-Radial (R): 2+ Gastrointestinal/Abdominal: Positive for: Soft, Other (+ erythema sourrounding gastrostomy site; + blood noted around gastrostomy site and dressings, no active bleeding. PEG tube appears in place. No discharge noted.). Negative for : Tenderness, Guarding, Rebound Back: Positive for: Normal Inspection Extremity: Positive for: Normal ROM Neurologic/Psych: Positive for: Alert - Laboratory Results Result Diagrams: 10/24/17 18:25 10/24/17 18:30 - ECG O2 Sat by Pulse Oximetry: 100 (RA) Pulse Ox Interpretation: Normal Medical Decision Making Medical Decision Making: Impression: Bleeding and erythema around PEG tube. Differential: GI bleed, celluitis around PEG tube Plan: -- Labs -- CT Abdomen and Pelvis -- UA 1828 CT Abdomen and Pelvis FINDINGS: LOWER THORAX: Linear scarring at the right base is a stable finding. LIVER: Unremarkable. No gross lesion or ductal dilatation. GALLBLADDER AND BILE DUCTS: Status post cholecystectomy. No abnormality is seen in the gallbladder fossa. PANCREAS: Unremarkable. No gross lesion or ductal dilatation. SPLEEN: Unremarkable. ADRENALS: Unremarkable. No mass. KIDNEYS AND URETERS: Stable staghorn calculus on the right. No acute or significant findings in the kidneys otherwise identified. VASCULATURE: Unremarkable. No aortic aneurysm. BOWEL: Mature PEG tube tract. The PEG tube tip is beyond the ligament of Treitz. Gross mural thickening. APPENDIX: Unremarkable. Normal appendix. PERITONEUM: Unremarkable. No free fluid. No free air. LYMPH NODES: Unremarkable. No enlarged lymph nodes. BLADDER: Unremarkable. REPRODUCTIVE: Unremarkable. BONES: No acute fracture. OTHER FINDINGS: None. IMPRESSION: Unremarkable PEG tube. The tip of the PEG tube and the Lopez catheter balloon are identified. The Lopez catheter is at the ligament of Treitz, the tip is beyond in the proximal jejunum. The stomach is decompressed. [address] Menezes covering for Dr Pérez who will be on consult. Scribe Attestation: Documented by Taina Gibbons, acting as a scribe for Palmer Pereira MD. Provider Scribe Attestation: All medical record entries made by the Scribe were at my direction and personally dictated by me. I have reviewed the chart and agree that the record accurately reflects my personal performance of the history, physical exam, medical decision making, and the department course for this patient. I have also personally directed, reviewed, and agree with the discharge instructions and disposition. Disposition - Clinical Impression Clinical Impression: Cellulitis, abdominal wall, Gastrostomy tube in place, Stoma bleed - Patient ED Disposition Is Patient to be Admitted: Yes Discussed With : Vikas Blair Doctor Will See Patient In The: Hospital Counseled Patient/Family Regarding: Studies Performed, Diagnosis - Disposition Disposition Time: 20:00 Condition: FAIR - Pt Status Changed To: Hospital Disposition Of: Observation - POA Present On Arrival: None
--- NOTE | 2017-10-24 18:15 | CT ---
Date of service: 10/24/2017 PROCEDURE: CT Abdomen and Pelvis without intravenous contrast HISTORY: PEG tube, bleeding of stoma COMPARISON: 06/20/2017. CT abdomen and pelvis. TECHNIQUE: Unenhanced study. Neither oral nor intravenous contrast administered. Radiation dose: Total exam DLP = 947.62 mGy-cm. This CT exam was performed using one or more of the following dose reduction techniques: Automated exposure control, adjustment of the mA and/or kV according to patient size, and/or use of iterative reconstruction technique. FINDINGS: LOWER THORAX: Linear scarring at the right base is a stable finding. LIVER: Unremarkable. No gross lesion or ductal dilatation. GALLBLADDER AND BILE DUCTS: Status post cholecystectomy. No abnormality is seen in the gallbladder fossa. PANCREAS: Unremarkable. No gross lesion or ductal dilatation. SPLEEN: Unremarkable. ADRENALS: Unremarkable. No mass. KIDNEYS AND URETERS: Stable staghorn calculus on the right. No acute or significant findings in the kidneys otherwise identified. VASCULATURE: Unremarkable. No aortic aneurysm. BOWEL: Mature PEG tube tract. The PEG tube tip is beyond the ligament of Treitz. Gross mural thickening. APPENDIX: Unremarkable. Normal appendix. PERITONEUM: Unremarkable. No free fluid. No free air. LYMPH NODES: Unremarkable. No enlarged lymph nodes. BLADDER: Unremarkable. REPRODUCTIVE: Unremarkable. BONES: No acute fracture. OTHER FINDINGS: None. IMPRESSION: Unremarkable PEG tube. The tip of the PEG tube and the Lopez catheter balloon are identified. The Lopez catheter is at the ligament of Treitz, the tip is beyond in the proximal jejunum. The stomach is decompressed.
[2017-10-24 18:44] LABS: BASO # 0.1 K/uL (0.0-0.2); EOS # 0.2 K/uL (0.0-0.7); EOS % 1.9 % (0.0-4.0); HEMOGLOBIN 10.6 g/dL (12.0-16.0); LYMPH # 0.9 K/uL (1.0-4.3); LYMPH % 9.3 % (20.0-40.0); MEAN CORPUSCULAR HEMOGLOBIN 28.9 pg (27.0-31.0); MEAN CORPUSCULAR HGB CONC 33.3 g/dL (33.0-37.0); MEAN PLATELET VOLUME 8.2 fl (7.2-11.7); MONO # 0.7 K/uL (0.0-0.8); MONO % 7.3 % (0.0-10.0); NEUT # 7.9 K/uL (1.8-7.0); NEUT % 80.5 % (50.0-75.0); NRBC % 0.1 % (0.0-0.0); PLATELET COUNT 128 K/uL (130-400); RBC 3.67 Mil/uL (3.80-5.20); WHITE BLOOD COUNT 9.9 K/uL (4.8-10.8)
[2017-10-24 18:50] LABS: PROTHROMBIN TIME 11.4 Seconds (9.8-13.1)
[2017-10-24 18:53] LABS: PARTIAL THROMBOPLASTIN TIME 35.3 Seconds (25.6-37.1)
[2017-10-24 18:59] LABS: BLOOD UREA NITROGEN 30 mg/dl (7-17); CALCIUM 8.6 mg/dL (8.4-10.2); GFR AFRICAN-AMERICAN > 60; GFR NON-AFRICAN AMERICAN > 60
[2017-10-24] MEDS ORDERED: Clindamycin 600mg/50ml D5W 300 MG/25 ML VIAL IVPB STA (20:48)
[2017-10-24] MEDS ORDERED: Clindamycin 600mg/50ml D5W 600 MG/50 ML VIAL IVPB STA (20:52)
[2017-10-24 21:18] LABS: ANISOCYTOSIS MODERATE; BANDS 3 % (0-2); BASOPHIL 1 % (0-2); EOSINOPHIL 2 % (0-7); LYMPHOCYTE 11 % (20-50); MONOCYTE 9 % (0-10); NEUTROPHIL 74 % (42-75); PLATELET ESTIMATE NORMAL (NORMAL); POIKILOCYTOSIS SLIGHT; TOTAL CELLS COUNTED 100
[2017-10-24 21:19] LABS: HYPOCHROMIC SLIGHT
[2017-10-24 21:21] LABS: POLYCHROMIC SLIGHT
[2017-10-24 21:22] LABS: TOXIC GRANULATION PRESENT
[2017-10-25] MEDS ORDERED: Patient's Own Med (Insulin Detemir [Levemir] 10 UNIT) SC SCH (01:15)
[2017-10-25] MEDS ORDERED: Insulin Detemir 100 Units/ml Inj SC SCH (01:30)
[2017-10-25] MEDS: Sodium Chloride 0.9% 1,000 ML IV SCH ×3 (01:39→22:04)
[2017-10-25] MEDS: Albuterol-Ipratrop 3 mg / 0.5 (3 ml) UD INH SCH ×4 (07:45→19:08)
[2017-10-25] MEDS ORDERED: Alum-Mag Hydrox-Simethicone Susp (30 mL) PEG PRN (09:00)
[2017-10-25] MEDS ORDERED: Magnesium Hydroxide Susp 30 ml UD PEG PRN (09:00)
--- NOTE | 2017-10-25 10:10 | CP.PCM.CON ---
History of Present Illness - History of Present Illness History of Present Illness: PGY6 GI Fellow Consult Note Patient is a 72yo female with PMHx significant for CVA with resulting aphasia/ dysphagia s/p left craniotomy and PEG, seizure disorder, DM, CKD, HTN who presented from [facility] care at [place] for evaluation of PEG tube. The patient cannot provide any history. She is noted to have DNR/DNI status. There was concern over PEG site leakage and thus patient was transferred for evaluation. The site has a michel catheter in place at present and CT shows catheter passing through stomach with the tip of the catheter in the small bowel. Skin around the site is raw, erythematous and painful to touch. Fresh blood and clot is noted around the site. Patient arrives to the hospital with medication list stating she is on Bactrim DS daily. She has multiple allergies as noted in the EMR. 12 system ROS cannot be performed given clinical condition PMHx: See HPI PSHx: Left craniotomy FHx: Unable to obtain given clinical condition Social: No known tobacco, EtOH or illicit drug use Endo: 02/22 - EGD - PEG replacement due to leaking 01/25 - EGD - PEG replacement due to dislodgment 06/26 - EGD - Eval of gastrocutaneous fistula - track not open to skin when wire passed from gastric lumen Past Patient History - Infectious Disease Hx of Infectious Diseases: None - Past Medical History & Family History Past Medical History?: Yes - Past Social History Smoking Status: Former Smoker - CARDIAC Hx Cardiac Disorders: Yes Hx Hypertension: Yes - PULMONARY Hx Respiratory Disorders: Yes Hx Chronic Obstructive Pulmonary Disease (COPD): Yes Hx Pneumonia: Yes - NEUROLOGICAL Hx Neurological Disorder: Yes HX Cerebrovascular Accident: Yes Hx Seizures: Yes - HEENT Hx HEENT Problems: Yes Hx Cataracts: Yes Other/Comment: APHASIA - RENAL Hx Chronic Kidney Disease: Yes - ENDOCRINE/METABOLIC Hx Endocrine Disorders: Yes Hx Diabetes Mellitus Type 2: Yes - HEMATOLOGICAL/ONCOLOGICAL Hx AIDS: No Hx Human Immunodeficiency Virus (HIV): No - INTEGUMENTARY Hx Dermatological Problems: No - MUSCULOSKELETAL/RHEUMATOLOGICAL Hx Musculoskeletal Disorders: No Hx Falls: No Hx Osteoporosis: No - GASTROINTESTINAL Hx Gastrointestinal Disorders: Yes Hx Gastroesophageal Reflux: Yes Other/Comment: PEG Tube placement - GENITOURINARY/GYNECOLOGICAL Hx Genitourinary Disorders: Yes Hx Incontinence: Yes Hx Urinary Tract Infection: Yes - PSYCHIATRIC Hx Psychophysiologic Disorder: Yes Hx Anxiety: Yes Hx Substance Use: No - SURGICAL HISTORY Hx Surgeries: Yes Other/Comment: GASTROSTOMY - ANESTHESIA Hx Anesthesia: Yes Hx Anesthesia Reactions: No Hx Malignant Hyperthermia: No Meds Allergies/Adverse Reactions: Allergies Allergy/AdvReac Type Severity Reaction Status Date / Time aztreonam [From Azactam] Allergy RASH Verified 10/24/17 16:30 cefepime Allergy RASH Verified 10/24/17 16:30 moxifloxacin Allergy RASH Verified 10/24/17 16:30 Penicillins Allergy RASH Verified 10/24/17 16:30 tamsulosin HCl [From Flomax] Allergy RASH Verified 10/24/17 16:30 tigecycline [From Tygacil] Allergy RASH Verified 10/24/17 16:30 vancomycin Allergy RASH Verified 10/24/17 16:30 pnemonia vaccine Allergy RASH Uncoded 10/24/17 16:30 - Medications Medications: Current Medications Acetaminophen (Tylenol 325mg Tab) 650 mg PEG Q4 PRN PRN Reason: Temp >100 Acetaminophen (Tylenol 325mg Tab) 650 mg PEG Q4 PRN PRN Reason: Pain, Mild (1-3) Al Hydrox/Mg Hydrox/Simethicone (Maalox Plus 30 Ml) 30 ml PEG Q4 PRN PRN Reason: heartburn/indigestion Albuterol/Ipratropium (Duoneb 3 Mg/0.5 Mg (3 Ml) Ud) 3 ml INH RQID [facility] Last Admin: 10/25/17 07:45 Dose: 3 ml Aspirin (Aspirin Chewable) 81 mg PEG DAILY [facility] Famotidine (Pepcid) 40 mg PEG DAILY [facility] Heparin Sodium (Porcine) (Heparin) 5,000 units SC Q12 [facility] PRN Reason: Protocol Sodium Chloride (Sodium Chloride 0.9%) 1,000 mls @ 100 mls/hr IV .Q10H [facility] Stop: 10/26/17 01:36 Last Admin: 10/25/17 01:39 Dose: 100 mls/hr Insulin Detemir (Levemir) 10 units SC Q12H [facility] Last Admin: 10/25/17 02:05 Dose: Not Given Insulin Human Regular (Humulin R) 0 units SC Q6 [facility] PRN Reason: Protocol Magnesium Hydroxide (Milk Of Magnesia) 30 ml PEG DAILY PRN PRN Reason: Constipation Mupirocin (Bactroban Ointment) 1 applic TOP QSHIFT [facility] Nystatin (Nystop Topical Powder) 1 applic TOP QSHIFT [facility] Oxcarbazepine (Trileptal) 450 mg PEG HS [facility] Last Admin: 10/25/17 01:38 Dose: 450 mg Oxcarbazepine (Trileptal) 300 mg PEG DAILY [facility] Topiramate (Topamax) 100 mg JT Q12 [facility] Last Admin: 10/25/17 01:38 Dose: 100 mg Trimethoprim/Sulfamethoxazole (Bactrim Ds Tab) 1 tab JT Q12 [facility] PRN Reason: Protocol Physical Exam - Constitutional Appears: No Acute Distress, Chronically Ill Additional comments: aphasic - Eye Exam Eye Exam: PERRL - ENT Exam ENT Exam: Mucous Membranes Moist - Respiratory Exam Respiratory Exam: Clear to Auscultation Bilateral. absent: Rales, Rhonchi, Wheezes - Cardiovascular Exam Cardiovascular Exam: RRR, +S1, +S2 - GI/Abdominal Exam GI & Abdominal Exam: Normal Bowel Sounds, Soft, Tenderness (around PEG site). absent: Distended, Firm, Guarding, Organomegaly, Rigid - Neurological Exam Neurological exam: Altered - Psychiatric Exam Psychiatric exam: Agitated, Anxious - Skin Skin Exam: Dry, Warm Additional comments: erythematous and irritated around PEG site Results - Vital Signs Recent Vital Signs: Last Vital Signs Temp 99.9 F H 10/25/17 08:17 Pulse 93 H 10/25/17 08:17 Resp 20 10/25/17 08:17 BP 142/66 10/25/17 08:17 Pulse Ox 100 10/25/17 08:17 - Labs Result Diagrams: 10/24/17 18:25 10/24/17 18:30 Labs: Laboratory Results - last 24 hr 10/24/17 10/24/17 10/24/17 18:25 18:25 18:25 WBC 9.9 RBC 3.67 L Hgb 10.6 L D Hct 31.9 L MCV 87.0 D MCH 28.9 MCHC 33.3 RDW 16.0 H Plt Count 128 L D MPV 8.2 Neut % (Auto) 80.5 H Lymph % (Auto) 9.3 L [place] % (Auto) 7.3 Eos % (Auto) 1.9 Baso % (Auto) 1.0 Neut # (Auto) 7.9 H Lymph # (Auto) 0.9 L [place] # (Auto) 0.7 Eos # (Auto) 0.2 Baso # (Auto) 0.1 Neutrophils % (Manual) 74 Band Neutrophils % 3 H Lymphocytes % (Manual) 11 L Monocytes % (Manual) 9 Eosinophils % (Manual) 2 Basophils % (Manual) 1 Toxic Granulation Present Platelet Estimate Normal Polychromasia Slight Hypochromasia (manual) Slight Poikilocytosis (manual Slight Anisocytosis (manual) Moderate PT 11.4 INR 1.0 APTT 35.3 Sodium Potassium Chloride Carbon Dioxide Anion Gap BUN Creatinine Est GFR ( Amer) Est GFR (Non-Af Amer) POC Glucose (mg/dL) Random Glucose Calcium Blood Type AB POSITIVE Antibody Screen Negative BBK History Checked No verified bt 10/24/17 10/25/17 10/25/17 18:30 00:23 06:00 WBC RBC Hgb Hct MCV MCH MCHC RDW Plt Count MPV Neut % (Auto) Lymph % (Auto) [place] % (Auto) Eos % (Auto) Baso % (Auto) Neut # (Auto) Lymph # (Auto) [place] # (Auto) Eos # (Auto) Baso # (Auto) Neutrophils % (Manual) Band Neutrophils % Lymphocytes % (Manual) Monocytes % (Manual) Eosinophils % (Manual) Basophils % (Manual) Toxic Granulation Platelet Estimate Polychromasia Hypochromasia (manual) Poikilocytosis (manual Anisocytosis (manual) PT INR APTT 27.4 Sodium 138 Potassium 4.1 Chloride 101 Carbon Dioxide 32 H Anion Gap 9 L BUN 30 H Creatinine 0.8 Est GFR ( Amer) > 60 Est GFR (Non-Af Amer) > 60 POC Glucose (mg/dL) 174 H Random Glucose 195 H Calcium 8.6 Blood Type Antibody Screen BBK History Checked 10/25/17 06:20 WBC RBC Hgb Hct MCV MCH MCHC RDW Plt Count MPV Neut % (Auto) Lymph % (Auto) [place] % (Auto) Eos % (Auto) Baso % (Auto) Neut # (Auto) Lymph # (Auto) [place] # (Auto) Eos # (Auto) Baso # (Auto) Neutrophils % (Manual) Band Neutrophils % Lymphocytes % (Manual) Monocytes % (Manual) Eosinophils % (Manual) Basophils % (Manual) Toxic Granulation Platelet Estimate Polychromasia Hypochromasia (manual) Poikilocytosis (manual Anisocytosis (manual) PT INR APTT Sodium Potassium Chloride Carbon Dioxide Anion Gap BUN Creatinine Est GFR ( Amer) Est GFR (Non-Af Amer) POC Glucose (mg/dL) 199 H Random Glucose Calcium Blood Type Antibody Screen BBK History Checked Assessment & Plan - Assessment and Plan (Free Text) Assessment: Patient is a 72yo female with PMHx significant for CVA with resulting aphasia/ dysphagia s/p left craniotomy and PEG, seizure disorder, DM, CKD, HTN who presented from [facility] at [place] for evaluation of PEG tube -Concern for cellulitis around PEG site -PEG tube malfunction -H/O CVA with resulting aphasia/dysphagia Plan: -Michel catheter removed and 18F EndoVive PEG exchange performed at bedside - bumper placed at 2cm from skin -OK to use for meds and water flushes, would hold tube feeding for now -Recommend close follow up and evaluation of site daily -Local wound care -Recommend antibiotic coverage and consideration for ID consultation given numerous allergies -If local site does not improve, may require complete removal of PEG from this site and endocopic replacement elsewhere -DNR/DNI/Hospice status noted - Date & Time Date: 10/25/17 Time: 08:00
[2017-10-25] MEDS: Insulin Regular 100 units/ml SC SCH ×4 (10:15→21:51)
[2017-10-25] MEDS: Famotidine 40 MG/5 ML PEG SCH (10:16)
[2017-10-25] MEDS: Tmp-Smz 800 mg-160 mg DS Tab JT SCH ×2 (10:16→21:50)
--- NOTE | 2017-10-25 10:20 | RAD ---
Date of service: 10/24/2017 HISTORY: peg placement COMPARISON: 06/20/2017 FINDINGS: BOWEL: Normal. No obstruction. No free air. Focal radio opacities consistent with either residual barium from prior examination or calcifications. A percutaneous gastrostomy tube is seen in the left parasagittal upper abdomen. Surgical clips are noted in the right upper quadrant status post cholecystectomy. BONES: Normal. OTHER FINDINGS: None. IMPRESSION: PEG tube noted in left upper quadrant. Normal bowel gas pattern.
[2017-10-25] MEDS: Clindamycin in NS 300 MG/50 ML BAG IVPB SCH ×2 (12:19→16:10)
[2017-10-25] MEDS: Dextrose 5%/0.9% NS 1,000 ML IV SCH (15:18)
--- NOTE | 2017-10-25 21:21 | HP ---
Copied To: Vikas Blair MD Attending MD: Vikas Blair MD HISTORY OF PRESENT ILLNESS: This is a 72-year-old female with history of multiple medical problems including multiple CVAs, hypertension, and seizure disorder. The patient is a [facility] patient for many years. The patient was sent to emergency room via EMS from [facility] due to leaking G-tube for 1 day duration. The patient is not verbal due to aphasia and the history was taken from the [facility] staff and emergency room records. The patient has no reported fever or chills or vomiting, and review of systems cannot be taken from the patient due to aphasia. ALLERGIES: THE PATIENT HAS MULTIPLE ALLERGIES TO ANTIBIOTICS PER LIST. MEDICATIONS: Were reviewed as per MAR. PAST MEDICAL HISTORY: Seizure disorder, multiple CVAs, hypertension, gastric tube feeding, bedridden for many years. SOCIAL HISTORY: The patient is a [facility] patient. FAMILY HISTORY: Not known. PHYSICAL EXAMINATION GENERAL: The patient is in bed, not in any cardiopulmonary distress. VITAL SIGNS: With blood pressure 113/46, temperature 98.3, respiratory rate 20, and pulse 90. HEENT: Pupils equal, reactive to light. Normal-appearing mucosa of the conjunctivae, oropharynx, and nasal membrane mucosa. NECK: Supple. No JVD. No carotid bruit. No lymph node. No thyromegaly. CHEST AND LUNGS: Bilateral symmetrical expansion. Decreased air entry both lower lung bedolla. CARDIOVASCULAR: PMI not localized. S1, S2. No additional sounds. ABDOMEN: There is erythema around the gastric tube opening with some leaking around. No tenderness. No organomegaly. No masses. EXTREMITIES: No cyanosis. No clubbing. No edema. [employer]: The patient is awake but aphasic and she has Rt. sided hemiparesis with aphasia. ASSESSMENT: Malfunctioning gastric tube, seizure disorder, hypertension, chronic obstructive pulmonary disease, and type 2 diabetes mellitus. PLAN: GI consult for replacement of the gastric tube. We will resume the patient's medications and seizure precaution. The patient is DNR/DNI as per records from [facility]. Vikas Blair MD [facility] # [id number]
[2017-10-25] MEDS: Insulin Detemir 100 Units/ml Inj SC SCH (21:51)
[2017-10-26] MEDS: Insulin Regular 100 units/ml SC SCH ×4 (04:10→22:04)
[2017-10-26] MEDS: Dextrose 5%/0.9% NS 1,000 ML IV SCH (05:11)
[2017-10-26] MEDS: Albuterol-Ipratrop 3 mg / 0.5 (3 ml) UD INH SCH ×4 (07:00→18:59)
[2017-10-26 09:43] LABS: HEMOGLOBIN 11.4 g/dL (12.0-16.0); MEAN CELL VOLUME 87.6 fl (81.0-99.0); MEAN CORPUSCULAR HEMOGLOBIN 28.8 pg (27.0-31.0); MEAN CORPUSCULAR HGB CONC 32.9 g/dL (33.0-37.0); RBC 3.96 Mil/uL (3.80-5.20); RED CELL DISTRIBUTION WIDTH 16.1 % (11.5-14.5); WHITE BLOOD COUNT 23.1 K/uL (4.8-10.8)
[2017-10-26] MEDS: Tmp-Smz 800 mg-160 mg DS Tab JT SCH (09:43)
[2017-10-26] MEDS: Famotidine 40 MG/5 ML PEG SCH (09:44)
[2017-10-26 10:00] LABS: CALCIUM 8.4 mg/dL (8.4-10.2)
[2017-10-26] MEDS ORDERED: DiphenhydrAMINE 50 mg/ml Inj IVP SCH (12:15)
[2017-10-26] MEDS: DiphenhydrAMINE 50 mg/ml Inj IVP SCH (20:49)
[2017-10-26] MEDS: Insulin Detemir 100 Units/ml Inj SC SCH (22:05)
[2017-10-27] MEDS: DiphenhydrAMINE 50 mg/ml Inj IVP SCH (04:34)
[2017-10-27] MEDS: Insulin Regular 100 units/ml SC SCH ×4 (04:49→23:03)
[2017-10-27] MEDS: Albuterol-Ipratrop 3 mg / 0.5 (3 ml) UD INH SCH ×4 (07:54→19:03)
--- NOTE | 2017-10-27 20:37 | CP.PCM.PN ---
Subjective - Date & Time of Evaluation Date of Evaluation: 10/27/17 Time of Evaluation: 17:00 - Subjective Subjective: Patient with binder and dressing over gastrostomy site. Objective - Vital Signs/Intake and Output Vital Signs (last 24 hours): Temp Pulse Resp BP Pulse Ox 97.7 F 81 19 121/68 98 10/27/17 15:44 10/27/17 15:44 10/27/17 15:44 10/27/17 15:44 10/27/17 15:44 - Medications Medications: Current Medications Acetaminophen (Tylenol 325mg Tab) 650 mg PEG Q4 PRN PRN Reason: Temp >100 Acetaminophen (Tylenol 325mg Tab) 650 mg PEG Q4 PRN PRN Reason: Pain, Mild (1-3) Al Hydrox/Mg Hydrox/Simethicone (Maalox Plus 30 Ml) 30 ml PEG Q4 PRN PRN Reason: heartburn/indigestion Albuterol/Ipratropium (Duoneb 3 Mg/0.5 Mg (3 Ml) Ud) 3 ml INH RQID [facility] Last Admin: 10/27/17 19:03 Dose: 3 ml Aspirin (Aspirin Chewable) 81 mg PEG DAILY [facility] Last Admin: 10/27/17 09:13 Dose: 81 mg Famotidine (Pepcid) 40 mg PEG DAILY [facility] Last Admin: 10/27/17 09:13 Dose: 40 mg Heparin Sodium (Porcine) (Heparin) 5,000 units SC Q12 [facility] PRN Reason: Protocol Last Admin: 10/27/17 09:12 Dose: 5,000 units Insulin Detemir (Levemir) 10 units SC [facility] Last Admin: 10/26/17 22:05 Dose: 10 unit Insulin Human Regular (Humulin R) 0 units SC Q6 [facility] PRN Reason: Protocol Last Admin: 10/27/17 17:11 Dose: 4 units Magnesium Hydroxide (Milk Of Magnesia) 30 ml PEG DAILY [facility] PRN Reason: Constipation Mupirocin (Bactroban Ointment) 1 applic TOP QSHIFT [facility] Nystatin (Nystop Topical Powder) 1 applic TOP QSHIFT [facility] Last Admin: 10/27/17 09:12 Dose: 1 appl Oxcarbazepine (Trileptal) 450 mg PEG HS [facility] Last Admin: 10/26/17 21:50 Dose: 450 mg Oxcarbazepine (Trileptal) 300 mg PEG DAILY [facility] Last Admin: 10/27/17 09:15 Dose: 300 mg Topiramate (Topamax) 100 mg JT Q12 [facility] Last Admin: 10/27/17 09:13 Dose: 100 mg - Labs Labs: 18 08:17 10/26/17 08:17 PT 11.4 Seconds (9.8-13.1) 10/24/17 18:25 INR 1.0 10/24/17 18:25 APTT 27.4 Seconds (25.6-37.1) 10/25/17 06:00 - Head Exam Head Exam: ATRAUMATIC - Eye Exam Pupil Exam: NORMAL ACCOMODATION - ENT Exam ENT Exam: Normal Exam - Neck Exam Neck Exam: Normal Inspection - Cardiovascular Exam Cardiovascular Exam: +S1, +S2 - GI/Abdominal Exam GI & Abdominal Exam: Soft Additional comments: cellulitis unchanged. Assessment and Plan (1) Cellulitis, abdominal wall Assessment & Plan: Patient had been started on abx but they had to be stopped due to hypersensitivity reaction. Patient has h/o multiple antibiotic allergies. Recommend ID consult. Status: Acute
[2017-10-27] MEDS: Insulin Detemir 100 Units/ml Inj SC SCH (23:04)
--- NOTE | 2017-10-28 02:39 | PN ---
Copied To: Vikas Blair MD Attending MD: Vikas Blair MD DATE: 10/26/2017 DAILY PROGRESS NOTE SUBJECTIVE: The patient was seen on 10/26/2017, and this is a late entry. PHYSICAL EXAMINATION: GENERAL: The patient was not in any cardiopulmonary distress. VITAL SIGNS: Blood pressure 143/69, temperature 98.7, respiratory rate 20, and pulse 87. HEENT: Pupils equal, reactive to light. Normal-appearing mucosa of the conjunctivae, oropharynx and nasal membrane mucosa. NECK: Supple. No JVD. No carotid bruit. No lymph node. No thyromegaly. CHEST AND LUNGS: Bilateral symmetrical expansion. Good air exchange. No rales. No rhonchi. CARDIOVASCULAR SYSTEM: PMI not localized. S1, S2. No additional sounds. ABDOMEN: There is slight distention. Abdominal examination, gastric tube is in place, and there is some redness and erythema around the opening. EXTREMITIES: No cyanosis, no clubbing, no edema. CENTRAL NERVOUS SYSTEM: Awake but disoriented and aphasic. ASSESSMENT: 1. Malfunctioning and leakage around the gastric tube. 2. Type 2 diabetes mellitus. 3. Hypertension. 4. Seizure disorder. PLAN: Continue local treatment of the wound and follow recommendations of Gastroenterology and resume the patient's preadmission medications. Vikas Blair MD
[2017-10-28] MEDS: Insulin Regular 100 units/ml SC SCH ×3 (04:13→17:55)
[2017-10-28] MEDS: Albuterol-Ipratrop 3 mg / 0.5 (3 ml) UD INH SCH ×3 (07:35→15:16)
[2017-10-28 11:06] LABS: HEMOGLOBIN 9.3 g/dL (12.0-16.0); MEAN CELL VOLUME 89.2 fl (81.0-99.0); MEAN CORPUSCULAR HEMOGLOBIN 28.8 pg (27.0-31.0); MEAN CORPUSCULAR HGB CONC 32.3 g/dL (33.0-37.0); RBC 3.25 Mil/uL (3.80-5.20); RED CELL DISTRIBUTION WIDTH 16.2 % (11.5-14.5); WHITE BLOOD COUNT 7.7 K/uL (4.8-10.8)
[2017-10-28 11:23] LABS: ALB/GLOB RATIO 1.1 (1.0-2.1); ALBUMIN 3.7 g/dL (3.5-5.0); ALT/SGPT 31 U/L (9-52); AST/SGOT 16 U/L (14-36); BLOOD UREA NITROGEN 27 mg/dl (7-17); CALCIUM 9.3 mg/dL (8.4-10.2); GFR AFRICAN-AMERICAN > 60; GFR NON-AFRICAN AMERICAN > 60
--- NOTE | 2017-10-28 13:54 | CP.PCM.PN ---
Subjective - Date & Time of Evaluation Date of Evaluation: 10/28/17 Time of Evaluation: 13:54 - Subjective Subjective: GI progress note for Dr. Paulson Patient seen and examined at bedside with Dr. Paulson. No adverse events overnight. Per nursing there is no problem giving feed through the tube or any residuals. Wound care nursing is attending to skin wound around the tube Objective - Vital Signs/Intake and Output Vital Signs (last 24 hours): Temp Pulse Resp BP Pulse Ox 97.8 F 78 18 136/51 L 96 10/28/17 08:22 10/28/17 08:22 10/28/17 08:22 10/28/17 08:22 10/28/17 08:22 - Medications Medications: Current Medications Acetaminophen (Tylenol 325mg Tab) 650 mg PEG Q4 PRN PRN Reason: Temp >100 Acetaminophen (Tylenol 325mg Tab) 650 mg PEG Q4 PRN PRN Reason: Pain, Mild (1-3) Al Hydrox/Mg Hydrox/Simethicone (Maalox Plus 30 Ml) 30 ml PEG Q4 PRN PRN Reason: heartburn/indigestion Albuterol/Ipratropium (Duoneb 3 Mg/0.5 Mg (3 Ml) Ud) 3 ml INH RQID [facility] Last Admin: 10/28/17 11:11 Dose: 3 ml Aspirin (Aspirin Chewable) 81 mg PEG DAILY [facility] Last Admin: 10/28/17 11:50 Dose: 81 mg Famotidine (Pepcid) 40 mg PEG DAILY [facility] Last Admin: 10/28/17 11:52 Dose: 40 mg Heparin Sodium (Porcine) (Heparin) 5,000 units SC Q12 [facility] PRN Reason: Protocol Last Admin: 10/28/17 11:51 Dose: 5,000 units Insulin Detemir (Levemir) 10 units SC HS [facility] Last Admin: 10/27/17 23:04 Dose: 10 unit Insulin Human Regular (Humulin R) 0 units SC Q6 [facility] PRN Reason: Protocol Last Admin: 10/28/17 11:52 Dose: 4 units Magnesium Hydroxide (Milk Of Magnesia) 30 ml PEG DAILY [facility] PRN Reason: Constipation Mupirocin (Bactroban Ointment) 1 applic TOP QSCAFT [facility] Nystatin (Nystop Topical Powder) 1 applic TOP QSHIFT [facility] Last Admin: 10/27/17 09:12 Dose: 1 appl Oxcarbazepine (Trileptal) 450 mg PEG HS [facility] Last Admin: 10/27/17 21:46 Dose: 450 mg Oxcarbazepine (Trileptal) 300 mg PEG DAILY [facility] Last Admin: 10/28/17 11:53 Dose: 300 mg Topiramate (Topamax) 100 mg JT Q12 [facility] Last Admin: 10/28/17 11:53 Dose: 100 mg - Labs Labs: 10/28/17 10:45 10/28/17 10:45 PT 11.4 Seconds (9.8-13.1) 10/24/17 18:25 INR 1.0 10/24/17 18:25 APTT 27.4 Seconds (25.6-37.1) 10/25/17 06:00 - Constitutional Appears: Well, Non-toxic, No Acute Distress - Head Exam Head Exam: ATRAUMATIC, NORMOCEPHALIC - Eye Exam Eye Exam: Normal appearance. absent: Conjunctival injection, Scleral icterus - ENT Exam ENT Exam: Mucous Membranes Moist - Respiratory Exam Respiratory Exam: absent: Accessory Muscle Use, Respiratory Distress, NORMAL BREATHING PATTERN - GI/Abdominal Exam GI & Abdominal Exam: Soft. absent: Distended Additional comments: G-tube in place in the epigastrium with area of excoriated, ulcerating skin surrounding it approximately 5cm radially in circumference, mildly improved from 10/25. Active drainage of thick brownish fluid which is similar to tube feeds when patient coughs or struggles. - Neurological Exam Neurological Exam: Alert, Altered, Awake. absent: Oriented x3 - Psychiatric Exam Psychiatric exam: Normal Affect, Normal Mood - Skin Skin Exam: Dry, Normal Color, Warm Assessment and Plan - Assessment and Plan (Free Text) Assessment: 72F with chronic gastrostomy tube that was dislodged with surrounding erythema and ulceration of the skin Plan: Continue local wound care per wound care nursing--wound improving on current regimen Continue medications and tube feed through tube but stop if there is any resistence or increasing residuals No plans for new PEG tube insertion at this time--patient's wound is improving Will continue to monitor Discussed and examined with Dr. Paulson, who agrees with above Karol Hines, Pgy2
--- NOTE | 2017-10-28 13:59 | CP.PCM.PCO ---
Assessment/Plan - Assessment/Plan Assessment (Free Text): Pt stable, dressing to abdomen c/d/i, changed by forensic toxicologist. Repeat WBC 7.7. Discussed with Dr. Blair, no need for ID consult, patient to be discharged back to [place]. SW and RN aware. Continue same meds.
[2017-10-28 16:42] VITALS: BP 146/62; PULSE 85; RESP 20; TEMP 98.9; O2SAT 95
--- NOTE | 2017-10-29 15:45 | DS ---
Copied To: Vikas Blair MD Attending MD: Vikas Blair MD REASON FOR ADMISSION: This is a 72-year-old female who is a [facility] resident for many years, was admitted through emergency room for malfunctioning gastric tube feeding. COURSE OF HOSPITALIZATION: The patient was admitted to medical floor and she had a GI consult done by Dr. Paulson. The patient's G-tube was replaced and due to skin inflammation around the G-tube, the patient was given clindamycin and Bactrim. The patient developed an allergic reaction to this and antibiotics were stopped and wound care nurse was called. The patient was treated for the local wound around the G-tube by wound care nurse. The patient's white cell count went up to 23.1 during the hospital stay. It was thought due to possible seizure as the antiepileptic medication was slightly interrupted during the malfunctioning G-tube. White blood cell count returned back to 7.7 on the day of discharge and the patient was deemed discharged back to [facility] to continue admission medication and continue G-tube feeding. FINAL DIAGNOSES: 1. Malfunctioning gastrostomy-tube feeding. 2. Chemical burn of the skin surrounding the gastric tube from the gastric secretions. 3. Status post cerebrovascular accident with right-sided weakness. 4. Hypertension. 5. Seizure disorder. Vikas Blair MD
== END 2017-10-28 18:15 | DRG 394 ==
LOC: H.ER 16:24 → H.ERHOLD 20:30 → H.MEDSURG1 10-25 00:37 → OBSVTOIN 10-25 16:56
PROVIDERS: ADMIT Internal Medicine; ATTEND Internal Medicine
PROC: 0D20XUZ Change Feeding Device in Upper Intestinal Tract, External Approach (ICD-10-PCS; principal; 2017-10-25)
DX: K94.23 Gastrostomy malfunction (principal); L03.311 Cellulitis of abdominal wall; B96.5 Pseudomonas (aeruginosa) (mallei) (pseudomallei) as the cause of diseases classified elsewhere; B95.7 Other staphylococcus as the cause of diseases classified elsewhere; K21.9 Gastro-esophageal reflux disease without esophagitis; G40.909 Epilepsy, unspecified, not intractable, without status epilepticus; I12.9 Hypertensive chronic kidney disease with stage 1 through stage 4 chronic kidney disease, or unspecified chronic kidney disease; N18.9 Chronic kidney disease, unspecified; E11.22 Type 2 diabetes mellitus with diabetic chronic kidney disease; I69.320 Aphasia following cerebral infarction; I69.391 Dysphagia following cerebral infarction; R13.19 Other dysphagia; Z51.5 Encounter for palliative care; J44.9 Chronic obstructive pulmonary disease, unspecified; M81.0 Age-related osteoporosis without current pathological fracture; F41.9 Anxiety disorder, unspecified; Z66 Do not resuscitate; Z74.01 Bed confinement status; Z79.4 Long term (current) use of insulin; Z87.891 Personal history of nicotine dependence; Z87.01 Personal history of pneumonia (recurrent); Z87.440 Personal history of urinary (tract) infections; Z88.1 Allergy status to other antibiotic agents; Z88.0 Allergy status to penicillin

== ENCOUNTER 2018-02-06 16:39 | Emergency (ER) | payer MEDICARE, MEDICAID ==
[2018-02-06 16:40] VITALS: BMI 27.7
--- NOTE | 2018-02-06 17:37 | ED PDOC ---
HPI: Abdomen Time Seen by Provider: 02/06/18 17:01 Chief Complaint (Nursing): Abdominal Pain Chief Complaint (Provider): Peg tube History Per: Patient History/Exam Limitations: clinical condition Onset/Duration Of Symptoms: Days Additional Complaint(s): Vashti Ralph is a 72 year old female, with a past medical history of HTN, CVA, Chronic Kidney Disease and diabetes, who was brought to the emergency department by EMS from senior living for evaluation of PEG tube. Patient disoriented at baseline, unable to obtain full history. She has a DNR/DNI. PMD: Vikas Blair Past Medical History Reviewed: Historical Data, Nursing Documentation, Vital Signs Vital Signs: Last Vital Signs Temp 97.2 F L 02/06/18 16:41 Pulse 106 H 02/06/18 16:41 Resp 12 02/06/18 16:41 BP 111/55 L 02/06/18 16:41 Pulse Ox 95 02/06/18 16:41 - Medical History PMH: Anemia, Anxiety, COPD, CVA, Diabetes, HTN, Pneumonia, Chronic Kidney Disease, Seizures Denies: HIV, Osteoporosis - Surgical History Other surgeries: PEG tube placement - Family History Family History: States: Unknown Family Hx - Immunization History Hx Tetanus Toxoid Vaccination: No (no record) Hx Influenza Vaccination: No (no record) Hx Pneumococcal Vaccination: No (no record) - Home Medications Home Medications: Ambulatory Orders Medication Instructions Recorded Famotidine [Pepcid] 40 mg PEG DAILY 12/06/16 Magnesium Hydroxide [Milk Of 30 ml PEG DAILY PRN 12/06/16 Magnesia] Albuterol/Ipratropium [Duoneb 3 3 ml INH RQID neb 02/07/17 mg/0.5 mg (3 ml) UD] Aspirin [Aspirin Chewable] 81 mg PEG DAILY chew 02/07/17 Insulin Detemir [Levemir] 10 unit SC Q12H unit 02/07/17 Topiramate [Topamax] 100 mg PEG Q12 03/22/17 Acetaminophen [Tylenol 325mg tab] 650 mg PEG Q4 PRN 06/20/17 Acetaminophen [Tylenol 325mg tab] 650 mg PEG Q4 PRN 06/20/17 Mag Hydrox/Aluminum Hyd/Simeth 30 ml PEG Q4 PRN 06/20/17 [Maalox Advanced Suspension] Mupirocin 2% Ointment [Bactroban 1 appl TOP QSHIFT 10/24/17 Ointment] Nystatin [Nyamyc] 1 appl TOP QSHIFT 10/24/17 OXcarbazepine [Trileptal] 450 mg PEG HS 10/24/17 Sulfamethoxazole/Trimethoprim 1 tab PEG Q12 10/24/17 [Bactrim DS Tab] Acetaminophen [Tylenol 650 mg Supp] 650 mg AL Q6 PRN 02/06/18 Hyoscyamine [Levsin] 0.125 mg PEG Q4 PRN 02/06/18 Insulin Human Regular [Novolin R] 2 - 10 unit SC Q6 02/06/18 Morphine Sulfate [Morphine Oral 0.25 ml PEG Q3 PRN 02/06/18 Soln] Morphine Sulfate [Morphine Oral 5 mg PEG HS 02/06/18 Soln] Oxcarbazepine [Trileptal] 300 mg PEG QAM 02/06/18 - Allergies Allergies/Adverse Reactions: Allergies Allergy/AdvReac Type Severity Reaction Status Date / Time aztreonam [From Azactam] Allergy RASH Verified 02/06/18 16:42 cefepime Allergy RASH Verified 02/06/18 16:42 moxifloxacin Allergy RASH Verified 02/06/18 16:42 Penicillins Allergy RASH Verified 02/06/18 16:42 tamsulosin HCl [From Flomax] Allergy RASH Verified 02/06/18 16:42 tigecycline [From Tygacil] Allergy RASH Verified 02/06/18 16:42 vancomycin Allergy RASH Verified 02/06/18 16:42 pnemonia vaccine Allergy RASH Uncoded 02/06/18 16:42 Review of Systems Review Of Systems: ROS cannot be obtained secondary to pt's inabilty to answer questions. Physical Exam - Reviewed Nursing Documentation Reviewed: Yes Vital Signs Reviewed: Yes - Physical Exam Appears: Positive for: No Acute Distress Head Exam: Positive for: ATRAUMATIC, NORMAL INSPECTION, NORMOCEPHALIC Skin: Positive for: Normal Color, Warm, Dry Eye Exam: Positive for: Normal appearance, EOMI, PERRL Neck: Positive for: Normal, Painless ROM Cardiovascular/Chest: Positive for: Regular Rate, Rhythm. Negative for: Murmur Respiratory: Positive for: Normal Breath Sounds. Negative for: Respiratory Distress Gastrointestinal/Abdominal: Positive for: Other (Lopez in PEG tube site with surrounding erythema and induration to mid abdomen. There is dark brown material excreted from the site.) Back: Positive for: Normal Inspection. Negative for: L CVA Tenderness, R CVA Tenderness, Vertebral Tenderness Extremity: Positive for: Normal ROM (upper and lower extremities). Negative for: Deformity, Swelling Neurologic/Psych: Positive for: Alert (awake), Oriented (x0) - Laboratory Results Result Diagrams: 02/06/18 18:00 02/06/18 18:00 - ECG O2 Sat by Pulse Oximetry: 95 (RA) Pulse Ox Interpretation: Normal Medical Decision Making Medical Decision Making: Time: 17:01 Initial Impression: abdominal wall cellulitis, PEG tube replacement Initial Plan: --ABO/RH Type --Type and screen --VBG Shock Panel --Abd & Pelvis IV Contrast only [CT] --EKG --CMP --CBC w/ differential --PTT --PT --Blood culture --Urinalysis --Reevaluation 21:17 Abdomen/Pelvis CT Findings: Chest: There is minimal atelectasis at the right lung base. Abdomen: The percutaneous gastrostomy site appears grossly unremarkable and stable when compared the prior study. No surrounding fluid collections or inflammation is seen. The liver, spleen, pancreas, left kidney, and adrenal glands are unremarkable. There is a large suspected staghorn calculus in the right renal collecting system extending into the right renal pelvis. Mild right- sided proximal hydroureter is also noted, but the distal ureter appears unremarkable. These findings are stable since the prior study. The aorta is within normal limits. There is no evidence of abdominal lymphadenopathy or ascites. There is a small umbilical hernia containing only omental fat. Pelvis: The bowel is unremarkable, with no obstructive or inflammatory changes. The appendix is normal. The urinary bladder is within normal limits. The other pelvic structures appear grossly intact. There is no evidence of pelvic lymphadenopathy or ascites. Bones: There are no suspicious osseous abnormalities seen. Impression: 1. The site around the percutaneous gastrostomy tube appears grossly unremarkable, and unchanged since the prior study. No evidence of abscess or infection is seen at the site at this time. 2. No obstructive or inflammatory bowel changes. 3. Stable right renal staghorn calculus with mild right-sided hydronephrosis. 4. Minimal atelectasis in the right lung base. 5. Small umbilical hernia containing only omental fat. 21:42 -Case discussed with Dr. Blair who was informed of blood work and urine results. He states patient is allergic to majority of antibiotics and recommends just bacitracin at site. Furthermore, if G-tube is functioning to send patient back to senior living. Scribe Attestation: Documented by John Boyer, acting as a scribe for Saray Suarez MD. Provider Scribe Attestation: All medical record entries made by the Scribe were at my direction and personally dictated by me. I have reviewed the chart and agree that the record accurately reflects my personal performance of the history, physical exam, medical decision making, and the department course for this patient. I have also personally directed, reviewed, and agree with the discharge instructions and disposition. Disposition - Disposition Forms: [employer] (Ukrainian)
[2018-02-06 18:14] LABS: VENOUS BLOOD GAS BASE EXCESS 3.7 mmol/L (0.0-2.0); VENOUS BLOOD GAS PCO2 54 mmHg (40-60); VENOUS BLOOD GAS PO2 30 mm/Hg (30-55); VENOUS BLOOD PH 7.36 (7.32-7.43)
[2018-02-06 18:18] LABS: BASO % 0.4 % (0.0-2.0); EOS % 0.2 % (0.0-4.0); HEMOGLOBIN 11.4 g/dL (12.0-16.0); LYMPH # 0.9 K/uL (1.0-4.3); LYMPH % 8.3 % (20.0-40.0); MEAN CELL VOLUME 85.2 fl (81.0-99.0); MEAN CORPUSCULAR HGB CONC 32.9 g/dL (33.0-37.0); MEAN PLATELET VOLUME 8.1 fl (7.2-11.7); MONO # 0.7 K/uL (0.0-0.8); MONO % 5.8 % (0.0-10.0); NEUT # 9.6 K/uL (1.8-7.0); NEUT % 85.3 % (50.0-75.0); PLATELET COUNT 257 K/uL (130-400); RBC 4.07 Mil/uL (3.80-5.20); RED CELL DISTRIBUTION WIDTH 14.6 % (11.5-14.5); WHITE BLOOD COUNT 11.3 K/uL (4.8-10.8)
[2018-02-06 18:28] LABS: INR 1.1; PROTHROMBIN TIME 12.3 Seconds (9.8-13.1)
[2018-02-06 18:32] LABS: ALT/SGPT 91 U/L (9-52); AST/SGOT 45 U/L (14-36); BLOOD UREA NITROGEN 20 mg/dl (7-17); CALCIUM 9.4 mg/dL (8.4-10.2); GFR NON-AFRICAN AMERICAN > 60
[2018-02-06] MEDS ORDERED: Sodium Chloride 0.9% 1,000 ML IV STA (18:34)
[2018-02-06] MEDS ORDERED: Sodium Chloride 0.9% 50 ML IV ONE (19:17)
[2018-02-06] MEDS ORDERED: Iohexol 300 100 ML IJ ONE (19:17)
[2018-02-06 20:01] LABS: ANISOCYTOSIS SLIGHT; BANDS 2 % (0-2); EOSINOPHIL 1 % (0-7); HYPOCHROMIC SLIGHT; LYMPHOCYTE 11 % (20-50); MICROCYTOSIS MODERATE; MONOCYTE 7 % (0-10); NEUTROPHIL 79 % (42-75); PLATELET ESTIMATE NORMAL (NORMAL); POIKILOCYTOSIS SLIGHT; TOTAL CELLS COUNTED 100
[2018-02-06 20:02] LABS: OVALOCYTES SLIGHT
[2018-02-06 20:38] LABS: URINE BACTERIA MANY (<OCC); URINE BILIRUBIN NEGATIVE (NEGATIVE); URINE BLOOD LARGE (NEGATIVE); URINE CLARITY TURBID (Clear); URINE COLOR AMBER (YELLOW); URINE GLUCOSE (UA) NEG (Normal); URINE LEUKOCYTE ESTERASE LARGE Leu/uL (Negative); URINE PROTEIN 100 mg/dL (NEGATIVE); URINE UROBILINOGEN 0.2-1.0 mg/dL (0.2-1.0); WBC CLUMPS MANY /hpf
[2018-02-06] MEDS ORDERED: Absorbable Gelatin Sponge Size 100 TP STA (22:03)
[2018-02-06] MEDS ORDERED: Absorbable Gelatin Sponge Size 12-7 ONE (22:05)
[2018-02-07 00:56] VITALS: TEMP 98.8
--- NOTE | 2018-02-07 01:03 | ED PDOC ---
- Laboratory Results Result Diagrams: 02/06/18 18:00 02/06/18 18:00 - ECG O2 Sat by Pulse Oximetry: 100 (RA) Pulse Ox Interpretation: Normal Medical Decision Making Medical Decision Making: Time: 44 --Patient had a witnessed tonic-clonic seizure lasted less than 1.5 minutes. --Ativan was given as well as oxygen and suctioning --Nightly seizure medications ordered --Spoke to Dr. Blair regarding potential admission for observation or extending ER stay for further seizure activity. Dr. Blair said patient can be observed in ED for further seizure activity for a few more hours. If there is non, patient can be sent back to residential. Time: 430 --Patient has had no further seizure activity in the ER --Patient is stable for disharge to residential ----- Scribe Attestation: Documented by Eugenia Haney, acting as a scribe for Myke Serrato MD. Provider Scribe Attestation: All medical record entries made by the Scribe were at my direction and per sonally dictated by me. I have reviewed the chart and agree that the record accurately reflects my personal performance of the history, physical exam, medical decision making, and the department course for this patient. I have also personally directed, reviewed, and agree with the discharge instructions and disposition. Disposition - Clinical Impression Clinical Impression: Irritation around percutaneous endoscopic gastrostomy (PEG) tube site, UTI (urinary tract infection), Seizure - POA Present On Arrival: None - Disposition Referrals: Vikas Blair MD [Staff Provider] - Disposition: Rehab Facility/Unit Disposition Time: 04:36 Condition: STABLE Prescriptions: Clindamycin [Cleocin] 300 mg PEG TID 10 Days cap Instructions: Urinary Tract Infections in Adults, Percutaneous Endoscopic Gastrostomy Forms: [employer] (Faroese)
[2018-02-07 05:17] VITALS: BP 130/58; PULSE 93; RESP 18; O2SAT 99
--- NOTE | 2018-02-07 12:29 | CT ---
Date of service: 02/06/2018 PROCEDURE: CT Abdomen and Pelvis with contrast HISTORY: Cellulitis @ PEG site COMPARISON: Abdomen pelvis CT without contrast 10/24/2017. TECHNIQUE: Following the intravenous administration of iodinated contrast material, a CT examination of the abdomen and pelvis performed from the domes of the diaphragms to the symphysis pubis with reformatted datasets provided in axial, sagittal and coronal planes. Oral contrast was not administered as per referring physician request. Coronal and sagittal reformats were generated. Contrast dose: Omnipaque 300, 90 cc Radiation dose: Total exam DLP = 971.82 mGy-cm. This CT exam was performed using one or more of the following dose reduction techniques: Automated exposure control, adjustment of the mA and/or kV according to patient size, and/or use of iterative reconstruction technique. FINDINGS: LOWER THORAX: Cardiomegaly. Linear atelectasis or fibrosis at the right lower lobe. No pleural or pericardial effusion evident. LIVER: There is a 1.0 x 1.4 cm lucency at the right lobe liver anteriorly potentially reflecting a benign hemangioma. Is not clearly identified in prior contrast CT 06/20/2017 and follow-up ultrasound and possible MRI with and without contrast is recommended. Remainder the liver appears unremarkable. Borderline intrahepatic biliary dilatation is questioned, likely a function of prior cholecystectomy. GALLBLADDER AND BILE DUCTS: Prior cholecystectomy. Normal appearing CBD caliber. PANCREAS: Stable low-density lesions are identified at the pancreatic midbody measure 1.4 cm greatest dimension and pancreatic tail cyst/body junction at 1.6 cm. A stable lucency is seen at the creating head measure 1.1 x 1.61.8 cm once again. No interval pancreatic duct dilatation or new lesion identified. SPLEEN: Unremarkable. ADRENALS: Unremarkable. No mass. KIDNEYS AND URETERS: Partial staghorn calculus reiterated at the right kidney increased in size with a large component at the midpole and pelvis region measuring 3.0 x 1.4 cm. Punctate intrarenal calculi are again identified at the mid lower pole calices with limited scarring at the right kidney upper pole again evident. A tiny lucency is stable at the upper pole once again under 1 cm size, limited in characterization. VASCULATURE: Non aneurysmal abdominal aortic calcified atherosclerosis again evident. BOWEL: Gastrostomy tube identified largely decompressing the stomach with but with limited residual fluid remaining in the lumen of the stomach. There is nonspecific thickening of the dermis surrounding the gastrostomy site at the anterior abdominal wall with subcutaneous reaction at superior margins of the stoma which may compatible with clinical history of cellulitis, particularly if suspected to be somewhat limited. The pattern is less than that shown on prior and pelvis CT 06/20/2017 but similar to 10/24/2017 CT. No emphysematous change or fluid collection is associated as imaged. The bowel does not appear obstructed. APPENDIX: Normal appendix. PERITONEUM: Tiny umbilical hernia again evident containing only fat. No free fluid. No free air. LYMPH NODES: Unremarkable. No enlarged lymph nodes. BLADDER: Unremarkable. REPRODUCTIVE: Limited uterine partially calcified fibroid changes reiterated. No suspicious adnexal findings bilaterally. BONES: No interval acute fracture. OTHER FINDINGS: None. IMPRESSION: 1. Limited potential cellulitis related to gastrostomy stoma as discussed above. No abscess or emphysematous soft tissue changes related. 2. Partial staghorn calculus developing at the right kidney without definite obstructive uropathy. 3. Interval lucency right lobe liver inferiorly. Follow-up ultrasound and possible MRI without contrast for added characterization. 4. Three pancreatic lucent lesions are reiterated at the head and body/body tail junction as discussed above, stable. Under follow-up MRI if not already evaluated. (Previously discussed in prior CT 06/20/2017). Discordant preliminary report from [facility], 02/06/2018 9:17 p.m. (right lobe liver lesion). PA review assigned. Discussed with now a Mirlande Lama with written down and read back verification, 02/07/2018 12:20 p.m..
--- NOTE | 2018-02-07 18:27 | ED PDOC ---
ED Additional Note - Date & Time of Evaluation Date of Evaluation: 02/07/18 Time of Evaluation: 18:25 - Physician Additional Note Physician Additional Note: Called by radiology re: small liver lucency in RLL of liver noted on CT scan abdomen yesterday that had not previously been reported. I called and spoke with patient's spouse (Reece Ralph) as she is a skilled nursing resident and discussed findings. I recommended that he discuss with patient's primary care doctor and have further evaluation with ultrasound or MRI if needed. Pt's demonstrated understanding.
--- NOTE | 2018-02-07 19:47 | CARD ---
APPROVED REPORT Date of service: 02/06/2018 EKG Measurement Heart [id number] <Conclusion> Normal sinus rhythm LBBB Abnormal ECG
== END 2018-02-07 05:15 ==
LOC: H.ER 16:39
DX: K94.23 Gastrostomy malfunction (principal); N39.0 Urinary tract infection, site not specified; G40.909 Epilepsy, unspecified, not intractable, without status epilepticus; F41.9 Anxiety disorder, unspecified; I12.9 Hypertensive chronic kidney disease with stage 1 through stage 4 chronic kidney disease, or unspecified chronic kidney disease; I44.7 Left bundle-branch block, unspecified; J44.9 Chronic obstructive pulmonary disease, unspecified; K42.9 Umbilical hernia without obstruction or gangrene; K76.9 Liver disease, unspecified; Z79.4 Long term (current) use of insulin; Z79.82 Long term (current) use of aspirin; Z79.899 Other long term (current) drug therapy; Z86.73 Personal history of transient ischemic attack (TIA), and cerebral infarction without residual deficits; Z88.0 Allergy status to penicillin
CPT/HCPCS: 74177; 80053; 81003; 82803; 85025; 85610; 85730; 86850; 86900; 87040; 87070; 87086; 93005; 96374; 96375; 99285; C9113; G0328; J2060; J7030; Q9967